=== PATIENT | male | born 1940 | race Two or more races ===

== ENCOUNTER 2017-07-25 16:02 | Emergency (ER) | payer OTHER ==
[~2017-07-25] VITALS: Wt 79.2 kg
[~2017-07-25 16:02] MED LIST: [UNRECOGNIZED DRUG - CODE] PO; [UNRECOGNIZED DRUG - CODE] PO
--- NOTE | 2017-07-25 20:55 | ERD ---
ER Documentation Chief Complaint Chief Complaint HTN NOT CONTROLLED , COTO COTO HPI This 76-year-old male presents for hypertension is out of control as well as a headache that is a generalized headache. He began gradually earlier today. Patient is accompanied by his daughter who checks his pressure at home and noticed that he was top number over 200 at home which is not characteristic for him. It has been running high lately. He is on losartan 40 mg tablet as his only blood pressure medication. Also takes glipizide and metformin for his diabetes. He denies any chest pain, shortness of breath, visual symptoms, neurological deficits, focal weakness, shortness of breath. ROS All systems reviewed and are negative except as per history of present illness. Medications Home Meds Active Scripts Zolpidem Tartrate* (Ambien*) 5 Mg Tablet, 5 MG PO HS Y for INSOMNIA, #15 TAB Take this medication in bed. Do not stand up or get up until you have slept. Can cause falls and diziness. Prov:MARGARETTE HIGGINS DO 07/26/17 Amlodipine Besylate* (Amlodipine Besylate*) 10 Mg Tablet, 10 MG PO DAILY, #30 TAB Prov:MARGARETTE HIGGINS DO 07/26/17 Reported Medications Metformin Hcl* (Metformin Hcl*) 500 Mg Tablet, 500 MG PO WITH BREAKFAST DINNE, # 60 TAB 07/25/17 Famotidine* (Famotidine*) 40 Mg Tablet, 40 MG PO DAILY, #30 TAB 07/25/17 Metoclopramide Hcl* (Metoclopramide Hcl*) 5 Mg Tablet, 5 MG PO WITH MEALS Y for NAUSEA AND OR VOMITING, TAB 07/25/17 Glipizide* (Glipizide*) 10 Mg Tablet, 10 MG PO AC BREAKFAST, TAB 07/25/17 Losartan Potassium* (Losartan Potassium*) 50 Mg Tablet, 50 MG PO DAILY, TAB 07/25/17 Discontinued Reported Medications Etidronate Disodium (Didronel) 200 Mg Tab, 200 MG PO BID 10/03/12 Dolasetron Mesylate (Anzemet) 50 Mg Tablet, 50 MG PO DAILY, #2 10/03/12 Allergies Allergies: Coded Allergies: No Known Allergy (Unverified , 07/25/17) PMhx/Soc History of Surgery: Yes (GALLBLADDER) Anesthesia Reaction: No Hx Neurological Disorder: No Hx Respiratory Disorders: No Hx Cardiac Disorders: Yes (HTN) Hx Psychiatric Problems: No Hx Miscellaneous Medical Probl: Yes (DM) Hx Alcohol Use: No Hx Substance Use: No Hx Tobacco Use: No Physical Exam Vitals Vital Signs Date Time Temp Pulse Resp B/P Pulse Ox O2 Delivery O2 Flow Rate FiO2 07/25/17 23:57 68 16 159/86 99 Room Air 07/25/17 20:00 82 16 213/93 99 Room Air 07/25/17 16:05 98.8 89 20 210/96 99 Physical Exam Const: [] Distress, appears uncomfortable Head: Atraumatic Eyes: Normal Conjunctiva EOMI, PERRLA ENT: Normal External Ears, Nose and Mouth. Neck: Full range of motion..~ No JVD or meningismus Resp: Clear to auscultation bilaterally Cardio: Regular rate and rhythm, no murmurs Abd: Soft, non tender, non distended. Normal bowel sounds Skin: No petechiae or rashes Back: No midline or flank tenderness Ext: No cyanosis, or edema Neur: Awake and alert oriented 3, cranial nerves II through XII intact, no cerebellar deficits finger-nose testing. Psych: Normal Mood and Affect Result Diagram: 07/25/17212907/25/172129 Results 24 hrs Laboratory Tests Test 07/25/17 21:30 White Blood Count 8.110^3/ul Red Blood Count 5.2310^6/ul Hemoglobin 13.6g/dl Hematocrit 40.9% Mean Corpuscular Volume 78.2fl Mean Corpuscular Hemoglobin 26.0pg Mean Corpuscular Hemoglobin Concent 33.3g/dl Red Cell Distribution Width 13.7% Platelet Count 00140^3/UL Mean Platelet Volume 11.4fl Neutrophils % 62.0% Lymphocytes % 26.8% Monocytes % 9.0% Eosinophils % 1.4% Basophils % 0.4% Nucleated Red Blood Cells % 0.0/100WBC Neutrophils # 5.110^3/ul Lymphocytes # 2.210^3/ul Monocytes # 0.710^3/ul Eosinophils # 0.110^3/ul Basophils # 0.010^3/ul Nucleated Red Blood Cells # 0.010^3/ul Sodium Level 137mmol/L Potassium Level 3.7mmol/L Chloride Level 101mmol/L Carbon Dioxide Level 23mmol/L Anion Gap 17 Blood Urea Nitrogen 14mg/dl Creatinine 1.11mg/dl Glucose Level 261mg/dl Calcium Level 9.4mg/dl Troponin I 0.016ng/ml B-Type Natriuretic Peptide 71PG/ML Current Medications Medications (Trade) Dose Ordered Sig/Julianna Route PRN Reason Start Time Stop Time Status Last Admin Dose Admin Labetalol HCl (Labetalol) 20 mg ONCE ONCE IV 07/25/17 21:00 07/25/17 21:01 DC 07/25/17 21:35 Amlodipine Besylate (Norvasc) 10 mg ONCE ONCE PO 07/26/17 00:00 07/26/17 00:01 DC Procedures/MDM Hypertensive crisis and diabetic hyperglycemia. No signs of infection. As the daughter reports increasing systolic blood pressure in the 160s-180s over time this is possibly a worsening of essential hypertension. Patient was given labetalol 20 mg IV. His blood pressure decreased 25% after which the patient had no headache no symptoms whatsoever. I have low suspicion for subarachnoid hemorrhage. Patient is taking his diabetes medication normally does have hyperglycemia. I recommended admission however the patient does not want to stay in the hospital and states that he is going to go home. Daughter is willing to take and care for him there as well as call the primary care doctor first thing in the morning for an appointment. I have also asked her to keep a record of his blood pressures 4 times a day in order to track therapy. I am giving him an amlodipine pill prior to discharge to prevent rebound hypertension discharging with amlodipine. EKG interpretation: Normal sinus rhythm rate of 72, bifascicular block, left axis deviation, no ST-T wave changes concerning for acute ischemia. Abnormal EKG colorist interpretation: Normal sinus rhythm without arrhythmia Chest x-ray interpretation: I see no acute process. I see no pulmonary edema, no pneumothorax, no infiltrates, no fractures. Care time greater than 35 minutes: This includes treatment of hypertensive crisis, action of unstable vital signs, use of IV vasoactive medication labetalol, subsequent multiple visits patient's bedside to reassess his cardio dynamic status, discussion with patient's family at length as well as patient and review of chart. This does not include any billable procedures Departure Diagnosis: Primary Impression: Hypertensive crisis Additional Impressions: Acute headache Hyperglycemia Condition: MARGARETTE Castorena DO Jul 25, 2017 20:55
[2017-07-25] MEDS ORDERED: LABETALOL HCL 20MG INJ IV ONE (21:00)
--- NOTE | 2017-07-25 21:27 | RADRPT ---
PROCEDURE: XR Chest. CLINICAL INDICATION: Chest pain. TECHNIQUE: Single frontal portable chest was obtained. COMPARISON: None. FINDINGS: Cardiomediastinal silhouette appears normal There are atherosclerotic calcifications in the thoracic aorta. Pulmonary vasculature appears normal. Lung gale appear clear. There is elevation of the right hemidiaphragm. Costophrenic angles are well defined The osseous elements appear intact. IMPRESSION: 1. Atherosclerotic calcifications in the thoracic aorta. 2. No evidence for active cardiopulmonary disease. RPTAT: [facility] Physician Day Date Time Electronically viewed and signed by Marc Hogue Physician on 07/25/2017 21:26 /
[2017-07-25] MEDS ORDERED: GLIP-95 PO (21:39)
[2017-07-25] MEDS ORDERED: LOSA50TA6 PO (21:39)
[2017-07-25] MEDS ORDERED: METO5TAB11 PO (21:40)
[2017-07-25] MEDS ORDERED: METF500T4 PO (21:41)
[2017-07-25] MEDS ORDERED: FAMO40TA52 PO (21:41)
[2017-07-25 21:51] LABS: BASOPHILS % 0.4 % (0.0-2.0); EOSINOPHILS # 0.1 10^3/ul (0.0-0.5); EOSINOPHILS % 1.4 % (0.0-7.0); HEMATOCRIT 40.9 % (42.0-52.0); HEMOGLOBIN 13.6 g/dl (14.0-18.0); LYMPHOCYTES # 2.2 10^3/ul (0.8-2.9); LYMPHOCYTES % 26.8 % (15.0-51.0); MEAN CORPUSCULAR HGB CONC 33.3 g/dl (32.0-37.0); MEAN CORPUSCULAR VOLUME 78.2 fl (82.0-101.0); MEAN PLATELET VOLUME 11.4 fl (7.4-10.4); MONOCYTE # 0.7 10^3/ul (0.3-0.9); NEUTROPHIL # 5.1 10^3/ul (1.6-7.5); PLATELET COUNT 270 10^3/UL (140-415); RED BLOOD COUNT 5.23 10^6/ul (4.70-6.10); RED CELL DISTRIBUTION WIDTH 13.7 % (11.5-14.5); WHITE BLOOD COUNT 8.1 10^3/ul (4.8-10.8)
[2017-07-25 22:30] LABS: CALCIUM 9.4 mg/dl (8.4-10.2); CREATININE 1.11 mg/dl (0.61-1.24); POTASSIUM 3.7 mmol/L (3.5-5.1)
[2017-07-25 22:42] LABS: TROPONIN-I 0.016 ng/ml (0.00-0.12)
[2017-07-25 23:57] VITALS: BP 159/86; PULSE 68; RESP 16
[2017-07-26] MEDS ORDERED: AMLO-147 PO
[2017-07-26] MEDS ORDERED: AMLODIPINE 10 MG TAB PO ONE
[2017-07-26] MEDS ORDERED: ZOLP5TAB PO (00:02)
== END 2017-07-26 00:32 | disposition home or self-care (01) ==
LOC: E/R 16:02
DX: I16.9 Hypertensive crisis, unspecified (principal); E11.65 Type 2 diabetes mellitus with hyperglycemia; I10 Essential (primary) hypertension; Z79.84 Long term (current) use of oral hypoglycemic drugs
CPT/HCPCS: 36415; 71010; 80048; 83880; 84484; 85025; 96374; Z7502; Z7610

== ENCOUNTER 2017-12-12 11:12 | Emergency (ER) | END 2017-12-12 14:17 | disposition home or self-care (01) ==

== ENCOUNTER 2018-09-14 17:07 | Inpatient (IN) | payer OTHER ==
[~2018-09-14] VITALS: Ht 167.6 cm; Wt 69.0 kg
[~2018-09-14 17:07] MED LIST changes: +AMLO-147 PO; +BISA-57 PO; +FAMO40TA5 PO; +GLIP10TA14 PO; +LOSA50TA14 PO; +METF500T24 PO; +METO5TAB2 PO; +POLY17PO6 PO; +TAMS-14 PO; +ZOLP5TAB PO; -[UNRECOGNIZED DRUG - CODE] PO; -[UNRECOGNIZED DRUG - CODE] PO
[2018-09-14] MEDS ORDERED: ONDANSETRON 4 MG INJ IV STA ×2 (20:06→22:40)
[2018-09-14] MEDS ORDERED: SOD CHLORIDE 0.9% 1,000 ML IV STA ×2 (20:06→22:40)
[2018-09-14] MEDS ORDERED: morphine 4 MG/ML VIAL IV STA (20:06)
--- NOTE | 2018-09-14 21:01 | ERD ---
ER Documentation Chief Complaint Chief Complaint and pain x 4 days with body weakness x today, denies N/V/D HPI This is a 78-year-old male with a past medical history of [id number] diabetes mellitus and hypertension. The patient presents to the emergency department complaining of epigastric pain. He states the pain is been persistent for 4 days. The pain will have episodes where it becomes more intense 10 out of 10 in intensity. He states the pain does not radiate to his back. He is felt associated symptoms of nausea but denies any vomiting or diarrhea. The patient has had no recent travel or prolonged immobilization. He denies any shortness of breath or chest pain or pressure. He states the epigastric pain is a burning-like sensation. He has had similar episodes of this pain over the past year and was instructed to undergo an upper endoscopy but stated he did not have this done as he was concerned about any invasive procedures. He denies any hemoptysis hematemesis or melanotic stools ROS All systems reviewed and are negative except as per history of present illness. Medications Home Meds Active Scripts Polyethylene Glycol* (Miralax*) 17 Gm Powd.pack, 17 GM PO DAILY, #7 Prov:DAVID ROLLE MD 12/12/17 Bisacodyl* (Dulcolax*) 5 Mg Tablet.dr, 10 MG PO DAILY PRN for CONSTIPATION, #10 TAB Prov:DAVID ROLLE MD 12/12/17 Tamsulosin Hcl* (Flomax*) 0.4 Mg Cap.er.24h, 0.4 MG PO QPM, #15 CAP Prov:DAVID ROLLE MD 12/12/17 Zolpidem Tartrate* (Ambien*) 5 Mg Tablet, 5 MG PO HS PRN for INSOMNIA, #15 TAB Take this medication in bed. Do not stand up or get up until you have slept. Can cause falls and diziness. Prov:MARGARETTE HIGGINS DO 07/26/17 Amlodipine Besylate* (Amlodipine Besylate*) 10 Mg Tablet, 10 MG PO DAILY, #30 TAB Prov:MARGARETTE HIGGINS DO 07/26/17 Reported Medications Metformin Hcl* (Metformin Hcl*) 500 Mg Tablet, 500 MG PO WITH BREAKFAST DINNE, #60 TAB 07/25/17 Famotidine* (Famotidine*) 40 Mg Tablet, 40 MG PO DAILY, #30 TAB 07/25/17 Metoclopramide Hcl* (Metoclopramide Hcl*) 5 Mg Tablet, 5 MG PO WITH MEALS PRN for NAUSEA AND OR VOMITING, TAB 07/25/17 Glipizide* (Glipizide*) 10 Mg Tablet, 10 MG PO AC BREAKFAST, TAB 07/25/17 Losartan Potassium* (Losartan Potassium*) 50 Mg Tablet, 50 MG PO DAILY, TAB 07/25/17 Allergies Allergies: Coded Allergies: No Known Allergy (Unverified , 07/25/17) PMhx/Soc History of Surgery: Yes (GALLBLADDER removal) Anesthesia Reaction: No Hx Neurological Disorder: No Hx Respiratory Disorders: No Hx Cardiac Disorders: Yes (HTN) Hx Psychiatric Problems: No Hx Miscellaneous Medical Probl: Yes (DM, gastritis) Hx Alcohol Use: No Hx Substance Use: No Hx Tobacco Use: No Smoking Status: Never smoker Physical Exam Vitals Vital Signs Date Temp Pulse Resp B/P (MAP) Pulse Ox O2 O2 Flow FiO2 Time Delivery Rate 09/14/18 97.3 71 18 138/63 99 Room Air 19:46 (88) 09/14/18 97.3 125 18 138/63 99 17:08 (88) Physical Exam Constitutional:Well-developed. Well-nourished. HEENT:Normocephalic. Atraumatic.Pupils were equal round reactive to light. Moist mucous membranes.No tonsillar exudates. Neck: No nuchal rigidity. No lymphadenopathy. No posterior cervical spine tenderness or step-offs. Respiratory: Not using accessory muscles of respiration.Lungs were clear to auscultation bilaterally. No rhonchi. No rales. No wheezing. Cardiovascular: Regular rate regular rhythm.No murmurs. No rubs were appreciated.S1, S2 normal. Distal pulses are palpable 2+ bilaterally. GI: Abdomen was soft. Epigastric tenderness with voluntary guarding and tendern ess in the left lower quadrant. Non Distended. No pulsatile abdominal masses or bruits. No rebound. No guarding. Bowel sounds were present and normal. Old surgical scar from the epigastric region to the right upper quadrant. Muscle skeletal: Full range of motion of both the upper and lower extremities bilaterally.Normal muscle tone.No assymetrical calf tenderness or swelling. Skin: No petechia, no purpura. No lesions on the palms or the soles of the feet. No maculopapular rash. NEURO: Patient was alert, awake, orientated x3.No facial droop. Gait observed and normal with no ataxia.Speech had regular rate and rhythm. No focal neurological deficits. Result Diagram: 09/14/18200909/14/182009 Results 24 hrs Laboratory Tests Test 09/14/18 20:10 09/14/18 22:48 09/14/18 22:52 White Blood Count 12.0 10^3/ul Red Blood Count 5.06 10^6/ul Hemoglobin 11.0 g/dl Hematocrit 36.2 % Mean Corpuscular Volume 71.5 fl Mean Corpuscular Hemoglobin 21.7 pg Mean Corpuscular 30.4 g/dl Hemoglobin Concent Red Cell Distribution Width 19.3 % Platelet Count 311 10^3/UL Mean Platelet Volume 9.7 fl Immature Granulocytes % 1.000 % Neutrophils % 80.2 % Lymphocytes % 7.6 % Monocytes % 10.2 % Eosinophils % 0.7 % Basophils % 0.3 % Nucleated Red Blood Cells % 0.0 /100WBC Immature Granulocytes # 0.120 10^3/ul Neutrophils # 9.6 10^3/ul Lymphocytes # 0.9 10^3/ul Monocytes # 1.2 10^3/ul Eosinophils # 0.1 10^3/ul Basophils # 0.0 10^3/ul Nucleated Red Blood Cells # 0.0 10^3/ul Prothrombin Time 14.5 Sec Prothrombin Time Ratio 1.1 INR International 1.12 Normalized Ratio Activated Partial Thromboplast 27.3 Sec Time Sodium Level 137 mmol/L Potassium Level 4.8 mmol/L Chloride Level 100 mmol/L Carbon Dioxide Level 20 mmol/L Anion Gap 17 Blood Urea Nitrogen 17 mg/dl Creatinine 1.27 mg/dl Est Glomerular Filtrat mL/min Rate mL/min Glucose Level 256 mg/dl Calcium Level 9.9 mg/dl Total Bilirubin 0.4 mg/dl Direct Bilirubin 0.00 mg/dl Indirect Bilirubin 0.4 mg/dl Aspartate Amino Transf (AST/SGOT) 184 IU/L Alanine 202 IU/L Aminotransferase (ALT/SGPT) Alkaline Phosphatase 706 IU/L Troponin I 0.027 ng/ml Total Protein 9.1 g/dl Albumin 4.3 g/dl Globulin 4.80 g/dl Albumin/Globulin Ratio 0.89 Amylase Level 623 U/L Lipase 8434 U/L Urine Color STRAW Urine Clarity CLEAR Urine pH 7.0 Urine Specific Celeste 1.036 Urine Ketones NEGATIVE mg/dL Urine Nitrite NEGATIVE mg/dL Urine Bilirubin NEGATIVE mg/dL Urine Urobilinogen NEGATIVE mg/dL Urine Leukocyte Esterase NEGATIVE Unique/ul Urine Microscopic RBC 2 /HPF Urine Microscopic WBC 0 /HPF Urine Hemoglobin 1+ mg/dL Urine Glucose 3+ mg/dL Urine Total Protein NEGATIVE mg/dl Triglycerides Level 166 mg/dl Hepatitis B Surface Antigen NEGATIVE Hepatitis B Core Total Antibody NEGATIVE Hepatitis C Antibody NEGATIVE Current Medications Medications Dose Sig/Julianna Start Time Status Last (Trade) Ordered Route PRN Stop Time Admin Dose Reason Admin Sodium 1,000 ml @ Q1H STAT 09/14/18 DC 09/14/18 Chloride 1,000 mls/hr IV 20:06 09/14/18 20:25 21:05 Morphine 4 mg ONCE STAT 09/14/18 DC 09/14/18 Sulfate IV 20:06 09/14/18 20:25 (morphine) 20:07 Ondansetron 4 mg ONCE STAT 09/14/18 DC 09/14/18 HCl (Zofran IV 20:06 09/14/18 20:25 Inj) 20:07 IV Flush 10 ml STK-MED 09/14/18 DC 09/14/18 (NS 10 ml) ONCE .ROUTE 21:38 09/14/18 21:51 21:39 Sodium 100 ml @ ud STK-MED 09/14/18 DC 09/14/18 Chloride ONCE .ROUTE 21:38 09/14/18 21:51 21:39 Iodixanol 100 ml STK-MED 09/14/18 DC 09/14/18 (Visipaque ONCE .ROUTE 21:38 09/14/18 21:52 Locm) 21:39 Sodium 1,000 ml @ Q1H STAT 09/14/18 DC 09/14/18 Chloride 1,000 mls/hr IV 22:40 09/14/18 22:57 23:39 1 mg ONCE STAT 09/14/18 DC 09/14/18 Hydromorphone IV 22:40 09/14/18 22:57 HCl 22:44 (Dilaudid) Ondansetron 4 mg ONCE STAT 09/14/18 DC 09/14/18 HCl (Zofran IV 22:40 09/14/18 22:57 Inj) 22:44 Sodium 1,000 ml @ Q8H IV 09/15/18 Chloride 125 mls/hr 00:02 IV Flush 3 ml PER 09/15/18 (NS 3 ml) PROTOCOL IV 00:30 Lorazepam 0.5 mg Q8H PRN 09/15/18 (Ativan) PO .ANXIETY 00:30 Ondansetron 4 mg Q6H PRN 09/15/18 HCl (Zofran IV 00:30 Inj) NAUSEA/VOMITI NG 650 mg Q6H PRN 09/15/18 Acetaminophen PO .PAIN 1-3 00:30 (Tylenol OR TEMP Tab) 0.5 mg Q4H PRN 09/15/18 Hydromorphone IV .PAIN 00:30 HCl 7-10 (Dilaudid) Docusate 100 mg Q12H PRN 09/15/18 Sodium PO 00:30 (Colace) .CONSTIPATION Bisacodyl 5 mg DAILY PRN 09/15/18 (Dulcolax) PO 00:30 .CONSTIPATION DC ONCE ONCE 09/15/18 Miscellaneous previous XX 00:30 hepa... 09/15/18 00:31 Information (* Miscellaneous Pharmacy Order) Heparin 5,500 unit ONCE ONCE 09/15/18 Sodium IV 00:30 (Porcine) 09/15/18 00:31 (Heparin (1000 Units/ml)) Heparin 5,500 unit PER PROTOCOL 09/15/18 Sodium PRN IV 00:30 (Porcine) aPTT<47 (Heparin (1000 Units/ml)) Heparin 2,800 unit PER PROTOCOL 09/15/18 Sodium PRN IV 00:30 (Porcine) aPTT<47-57 (Heparin (1000 Units/ml)) Heparin 250 ml @ PER 09/15/18 Sodium 12.5 mls/hr PROTOCOL IV 00:15 (Porcine) Enoxaparin 70 mg ONCE SC 09/15/18 DC Sodium 00:30 (Lovenox) 09/15/18 00:30 Procedures/MDM The patient presented to the emergency department with epigastric pain. My differential diagnosis included but was not limited to abdominal aortic aneurysm, choledocholithiasis, gallstone ileus, renal colic, pyelonephritis, pancreatitis, peptic ulcer disease, atypical myocardical infarction, mesenteric ischemia, GERD, pulmonary infarction. The patient was placed on a surveillance system monitor, continuous pulse oximetry and IV access was established by nursing staff. The patient was given intravenous morphine and Zofran for analgesic control An EKG was obtained to rule out myocardial ischemia. 12 Lead EKG tracing ordered and reviewed by myself showed: Sinus tachycardia 106 bpm and no arrhythmia. NE interval normal. QRS duration widened at 138 ms with a right bundle branch block No ST segment elevation No ST segment depression. No changes consistent with acute ischemia. There was elevation of LFTs that could suggest ductal obstruction, cholangitis, cholecystiitis or hepatitis. I will obtain a urinalysis to evaluate for the presence of bilirubinuria, which could indicate common duct obstruction or hepatitis. The patient's amylase and lipase were elevated and his clinical presentation was suggestive of acute pancreatitis. I obtained a CT scan of the abdomen which showed no pancreatic pseudocyst or abscess however the radiologist indicated the following findings: 1. Findings suspicious for pulmonary embolism in the right lower lobe. Recommend follow-up contrast-enhanced chest CT (PE protocol) for confirmation. 2. Hypoenhancing pancreatic head mass, consistent with pancreatic adenocarcinoma. 3. Innumerable hepatic metastases. 4. Minimal fluid-filled dilation of proximal jejunal loops, compatible with mild jejunal ileus. 5. Mildly enlarged right hilar lymph node, indeterminate. 6. Cholelithiasis without CT evidence of acute cholecystitis. 7. Small hiatal hernia with fluid in visualized distal esophagus. The patient received multiple doses of analgesic medication. I will obtain triglycerides as the patient has no history of alcohol abuse. The patient stated he has had a previous cholecystectomy roughly 20 years prior to arrival; however I am assuming that patient was not sure of the surgical procedure he had over 20 years ago because his gallbladder was present on the CT of the abdomen. Dr. Curtis ordered a US of the liver who was concerning for liver mets. The CT of the abdomen also showed a possible Pulmonary embolism. Dr. Curtis started the patient on a heparin drip. The patient already had mild acute kidney injury and in order to prevent further renal failure he will receive IV fluids with a CT of his Chest to be ordered later in his hospital stay. I spoke with the patient and his daughter about the findings and stated that the patient will be admitted in serious condition to the hospitalist Dr. Curtis will go to the telemetry service. Critical Care: Time: 75 minutes Treatments/Evaluations: Close monitoring and treatment of unstable vital signs, cardiorespiratory, and neurologic status, while maintaining tight balance of fluid, respiratory, and cardiac interventions. Time does not include performing any of the above billable procedures. Departure Diagnosis: Primary Impression: Transaminitis Additional Impressions: Hyperglycemia without ketosis Pancreatic adenocarcinoma Liver metastases Pulmonary embolism Pulmonary embolism type: unspecified Chronicity: acute Acute cor pulmonale presence: without acute cor pulmonale Qualified Codes: I26.99 - Other pulmonary embolism without acute cor pulmonale Condition: Serious TRANG SERVIN MD Sep 14, 2018 21:01
[2018-09-14] MEDS ORDERED: SOD CHLORIDE 0.9% 100 ML ONE (21:38)
[2018-09-14] MEDS ORDERED: IODIXANOL LOCM 100 ML BTL ONE (21:38)
--- NOTE | 2018-09-14 22:13 | HP ---
Date/Time of Note Date/Time of Note DATE: 09/14/18 TIME: 22:13 Assessment/Plan VTE Prophylaxis Pharmacological prophylaxis: heparin Lines/Catheters IV C[facility]ter Type (from [facility]): Saline Lock Assessment/Plan Hospital Course This is a 78-year-old male being admitted to the telemetry floor for: #1 abdominal pain: Secondary to suspected new pancreatic adenocarcinoma with metastases and/or acute pancreatitis. Elevated lipase of approximately 8000.. His CT and ultrasound results are reflective of likely pancreatic adenocarcinoma with metastases to the liver. At the current time will keep the patient n.p.o., IV fluid hydration with normal saline. Dilaudid for pain management. Zofran for nausea. Will consult GI as well as hematology. Will check tumor markers including CA-19-9 and CEA. Of note patient also has elevated alk phos and transaminitis. Will check hepatitis panel. #2 suspected pulmonary embolism: CT scan was concerning for pulmonary embolism. As patient just received contrast study we will obtain a CTA of the chest in the a.m. to workup for PE. I will though start him on heparin GTT at the current time for suspected pulmonary embolism. #4 suspected new pancreatic adenocarcinoma: Consult hematology, await tumor marker results, possible biopsy when patient stable #5 microcytic anemia: We will check stool occult blood, check iron stores, possibly secondary to suspected malignancy. Monitor closely as patient is currently on heparin. #6 Diabetes mellitus: We will check hemoglobin A1c, insulin sliding scale #5 hypertension: #7 acute kidney injury: I do not have a previous baseline creatinine, likely secondary to hemodynamics, prerenal etiology, FABIO inhibitor use. At the current time will hydrate the patient. Will hold FABIO inhibitor, monitor renal function. #8 hypertension: Resume Norvasc, will hold FABIO inhibitor at the current time. #9 DVT GI prophylaxis: H2 justina, no GI prophylaxis indicated heparin GTT, H2 justina Further treatment strategy will be implemented as per the clinical course Result Diagram: 09/14/18200909/14/182009 Results 24hrs Laboratory Tests Test 09/14/18 20:10 White Blood Count 12.0 H Red Blood Count 5.06 Hemoglobin 11.0 L Hematocrit 36.2 L Mean Corpuscular Volume 71.5 L Mean Corpuscular Hemoglobin 21.7 L Mean Corpuscular Hemoglobin Concent 30.4 L Red Cell Distribution Width 19.3 #H Platelet Count 311 Mean Platelet Volume 9.7 Immature Granulocytes % 1.000 H Neutrophils % 80.2 H Lymphocytes % 7.6 L Monocytes % 10.2 Eosinophils % 0.7 Basophils % 0.3 Nucleated Red Blood Cells % 0.0 Immature Granulocytes # 0.120 H Neutrophils # 9.6 H Lymphocytes # 0.9 Monocytes # 1.2 H Eosinophils # 0.1 Basophils # 0.0 Nucleated Red Blood Cells # 0.0 Prothrombin Time 14.5 Prothrombin Time Ratio 1.1 INR International Normalized Ratio 1.12 Activated Partial Thromboplast Time 27.3 Sodium Level 137 Potassium Level 4.8 Chloride Level 100 Carbon Dioxide Level 20 L Anion Gap 17 H Blood Urea Nitrogen 17 Creatinine 1.27 H Est Glomerular Filtrat Rate mL/min Glucose Level 256 H Calcium Level 9.9 Total Bilirubin 0.4 Direct Bilirubin 0.00 Indirect Bilirubin 0.4 Aspartate Amino Transf (AST/SGOT) 184 H Alanine Aminotransferase (ALT/SGPT) 202 H Alkaline Phosphatase 706 H Troponin I 0.027 Total Protein 9.1 H Albumin 4.3 Globulin 4.80 H Albumin/Globulin Ratio 0.89 Amylase Level 623 H Lipase 8434 H HPI/ROS Admit Date/Time Admit Date/Time Hx of Present Illness Chief complaint: Abdominal pain times 1 month with a being worse of the last 4 days. This is a 78-year-old male with a past medical history of pku-qyohdmg-fxhtdjhts diabetes mellitus and hypertension. Patient presents with his son. He presented to the emergency department complaining of abdominal pain mainly epigastric which has been going on for approximately 1 month with it being worse over the last 4 days. The pain will have episodes where it becomes more intense 10 out of 10 in intensity. He states the pain does not radiate to his back. He is felt associated symptoms of nausea but denies any vomiting or diarrhea. The patient has had no recent travel or prolonged immobilization. He denies any shortness of breath or chest pain or pressure. He states the epigastric pain is a burning-like sensation. He has had similar episodes of this pain over the past year and was instructed to undergo an upper endoscopy but stated he did not have this done as he was concerned about any invasive procedures. He denies any hemoptysis hematemesis or melanotic stools. He does not drink alcohol or smoke. He denies any weight loss Allergies: NKDA Medications: See MAR ROS Const: As per HPI Eyes : No pain discharge or redness or change in visual acuity ENT: No pain, sore throat, congestion, congestion, dysphagia or discharge Respiratory: No shortness of breath, cough, sputum, wheezing, or pleuritic pain Cardiovascular: No chest pain, palpitation, PND, or edema GI : As per HPI l Genitourinary: No dysuria, hematuria, flank pain , discharge or CVA tenderness Musculoskeletal: No joint pain, back pain, neck pain, restricted range of motion in neck or joints Skin: No rash, bruising or hives Neuro: No headache, dizziness, syncope, seizure, focal weakness Endocrine: No polyuria, polydipsia, temperature intolerance Psych: No hallucination, depression, anxiety or suicidal ideation PMH/Family/Social Past Medical History Bly-xdxpjsv-hckpheleo diabetes mellitus, hypertension Coded Allergies: No Known Allergy (Unverified , 07/25/17) Past Surgical History Gallstone removal greater than 20 years ago in [facility] Family History Significant Family History: no pertinent family hx Social History Alcohol Use: none Smoking Status: Never smoker Drug Use: none Exam/Review of Systems Vital Signs Vitals Vital Signs Date Temp Pulse Resp B/P (MAP) Pulse Ox O2 O2 Flow FiO2 Time Delivery Rate 09/14/18 97.3 71 18 138/63 99 Room Air 19:46 (88) Exam Exam General: Patient is currently lying in bed in no acute distress. HEENT: Atraumatic, normocephalic. The pupils are equal, round and reactive. Extraocular motor are intact Neck: Supple with full range of motion. No rigidity or meningismus Chest: Nontender Lungs: Clear to auscultation bilaterally no crackles rales or wheezing Heart: Normal S1-S2, Regular rhythm and rate. No murmur, S3, or S4 Abdomen: Soft , mild tenderness of the epigastric area, mild distention noted which she reports is normal, normal bowel sounds. No CVA tenderness bilaterally Extremities: Normal to inspection, no edema no cyanosis Neurologic: Normal mental status, speech normal, cranial nerves II through XII are intact, motor and sensory are intact, no focal weakness Additional Comments PROCEDURE: DX Chest 1 View CLINICAL INDICATION: Abdominal pain. ED patient. TECHNIQUE: AP Portable chest. COMPARISON: None FINDINGS: Normal cardiac and mediastinal configuration. Aortic calcified plaque not visualized. No CHF or hilar enlargement. Lungs are clear. Elevated right hemidiaphragm. No free air. IMPRESSION: No acute disease. RPTAT: HLRS Physician Isidra Date Time Electronically viewed and signed by Physician Isidra on 09/14/2018 20:29 RS/ CC: TRANG SERVIN MD [id number] PROCEDURE: CT Abdomen and Pelvis with contrast CLINICAL INDICATION: Abdominal pain TECHNIQUE: Transaxial computed tomographic images of the abdomen and pelvis were obtained following the uneventful administration of 90 mL Visipaque 320 intravenous contrast according to standard protocol. Coronal and sagittal reformatted images were provided. DICOM images are available. Radiation dose: CTDIvol (mGy) = 8.61; total DLP (mGy.cm) = 579.38. One or more of the following dose reduction techniques were used: - Automated exposure control. - Adjustment of the mA and/or kV according to patient size. - Use of iterative reconstruction technique. COMPARISON: None. FINDINGS: The visualized lung bases demonstrate moderate bibasilar atelectasis. There is no pleural effusion. A right hilar lymph node measuring 1.1 cm in short axis is partially seen. Intraluminal filling defects are suggested in segmental and subsegmental branches of the right lower lobe pulmonary artery. There are innumerable hypo enhancing right and left hepatic lobe lesions measuring up to 3 cm. There is no biliary ductal dilatation. Gallbladder is partially contracted and contains a small gallstone. There is no gallbladder wall thickening or pericholecystic fluid collection. There is a 3.9 x 3.6 cm partially exophytic hypoenhancing pancreatic head mass. Pancreatic body and tail is mildly atrophic with prominent main pancreatic duct. The mass encases distal superior mesenteric vein and portosplenic confluence. Co mmon hepatic artery and superior mesenteric artery are spared. Several subcentimeter peripancreatic, periportal and portacaval lymph nodes are nonspecific. There is a 3.1 cm exophytic right upper pole renal cyst. Subcentimeter hypoattenuating bilateral renal lesions are too small to characterize but statistically likely cyst. There is no hydronephrosis on either side. Spleen and adrenal glands are normal. There is a small hiatal hernia with a fluid in visualized distal esophagus. There is no evidence of intestinal obstruction. There is minimal fluid fluid- filled dilation of proximal jejunal loops. Remaining small bowel and colonic loops are not dilated. The appendix is normal. There is no abdominal aortic aneurysm. There is no free intraperitoneal air or fluid. Urinary bladder is normal. Prostate is moderately enlarged measuring 5.6 cm in transverse diameter. There is no suspicious mesenteric or retroperitoneal lymphadenopathy. Small fat-containing left inguinal hernia. Bone window demonstrates mild degenerative changes of thoracolumbar spine. IMPRESSION: 1. Findings suspicious for pulmonary embolism in the right lower lobe. Recommend follow-up contrast-enhanced chest CT (PE protocol) for confirmation. 2. Hypoenhancing pancreatic head mass, consistent with pancreatic adenocarcinoma. 3. Innumerable hepatic metastases. 4. Minimal fluid-filled dilation of proximal jejunal loops, compatible with mild jejunal ileus. 5. Mildly enlarged right hilar lymph node, indeterminate. 6. Cholelithiasis without CT evidence of acute cholecystitis. 7. Small hiatal hernia with fluid in visualized distal esophagus. 8. Other incidental findings, as above. Critical findings were discussed with Dr. Patel by Dr. Chacon at 11:35 p.m. on 09/14/2018. RPTAT:HAJM Physician Kandi Date Time Electronically viewed and signed by Physician Kandi on 09/14/2018 23:45 RM/ CC: TRANG SERVIN MD [id number] PROCEDURE: US abdomen limited CLINICAL INDICATION: Pancreatitis, abnormal liver function test. TECHNIQUE: Multiple real-time sonographic images of the right upper quadrant of the abdomen was performed. COMPARISON: None. FINDINGS: Liver parenchyma is diffusely heterogeneous. Liver measures 17.3 cm in length. There are innumerable hypoechoic liver lesions measuring up to 2.4 cm. There is no intrahepatic biliary ductal dilatation. Common bile duct measures 3 mm in diameter, within normal limits. Limited Doppler interrogation of main portal vein demonstrates antegrade flow. There is no gallstone, gallbladder wall thickening or pericholecystic fluid. No ascites is seen. Pancreas is obscured by the overlying bowel gas. Images of the right kidney demonstrate no hydronephrosis. Right kidney measures 10.2 x 5.4 x 4.6 cm. There is a 3 cm exophytic right renal cyst. IMPRESSION: 1. Innumerable hypoechoic liver lesions, compatible with metastatic disease. 2. No evidence of cholelithiasis or biliary ductal dilatation. 3. Right renal cyst. RPTAT:HAJM Physician Kandi Date Time Electronically viewed and signed by Physician Kandi on 09/14/2018 23:25 RM/ CC: LIZETTE YUAN [id number] LIZETTE YUAN Sep 14, 2018 22:13
[2018-09-14] MEDS ORDERED: HYDROmorphONE 1 MG/ML SYG IV STA (22:40)
[2018-09-15] VITALS (11 sets, daily range): BP systolic 117–147; BP diastolic 59–70; PULSE 84–119; RESP 18–20; Ht 167.6 cm; Wt 69.0 kg
[2018-09-15] MEDS: SOD CHLORIDE 0.9% 1,000 ML IV SCH ×2 (00:02→09:28)
[2018-09-15] MEDS ORDERED: ENOXAPARIN 80 MG/0.8 ML SYG SC SCH (00:30)
[2018-09-15] MEDS ORDERED: HEPARIN 1000 UNITS/ML 10 ML INJ IV ONE (00:30)
[2018-09-15] MEDS ORDERED: NACL 0.9% 3 ML SYG IV SCH (00:30)
[2018-09-15] MEDS ORDERED: DOCUSATE SODIUM 100 MG CAP PO PRN (00:30)
[2018-09-15] MEDS ORDERED: ACETAMINOPHEN 325 MG TAB PO PRN (00:30)
[2018-09-15] MEDS ORDERED: HEPARIN 1000 UNITS/ML 10 ML INJ IV PRN ×2 (00:30)
[2018-09-15] MEDS ORDERED: ONDANSETRON 4 MG INJ IV PRN (00:30)
[2018-09-15] MEDS: HYDROmorphONE 0.5 MG/0.5 ML SYG IV PRN ×3 (00:49→17:06)
[2018-09-15] MEDS: HEPARIN 25000 UNITS/250 ML 250 ML IV SCH ×2 (02:04→10:37)
[2018-09-15] MEDS ORDERED: IOHEXOL 100 ML ONE (08:22)
[2018-09-15] MEDS ORDERED: SOD CHLORIDE 0.9% 100 ML ONE (08:22)
[2018-09-15] MEDS: AMLODIPINE 10 MG TAB PO SCH (09:27)
[2018-09-15] MEDS: FAMOTIDINE 20 MG TAB PO SCH (09:27)
--- NOTE | 2018-09-15 11:09 | CONS ---
Assessment/Plan Assessment/Plan Hospital Course (Demo Recall) Assessment/Plan (Daily) Assessment/Plan Epigastric abdominal pain - secondary to pancreatitis, possibly due to gallstone pancreatitis vs pancreatic cancer - check A/I panel - MRCP to evaluate for any occult biliary obstruction and to better delineate liver masses - NPO with IV hydration - Continue GI ppx with H2 justina Metastatic pancreatic cancer with liver metastasis - Will order US guided liver biopsy for tissue diagnosis - follow up results of tumor markers, CEA, CA 19-9 - Await input from medical oncology Pulmonary embolism evidence as evidence on CT - CTA per hospitalist team - anticoagulation HTN - stable on current medications, continue to monitor Anemia - stable, monitor H and H, transfuse as needed to keep Hgb <7 The plan was discussed with the patient and family at bedside who expressed understanding and is willing to proceed. The patient was seen in collaboration with Dr. Pratt who is in agreement with the above plan. CC: COLETTE PRATT MD ; Consultation Date/Type/Reason Admit Date/Time Date of Consultation: Sep 15, 2018 Type of Consult Gastroenterology Reason for Consultation pancreatitis, liver failure Requesting Provider: LIZETTE YUAN Date/Time of Note DATE: 09/15/18 TIME: 10:10 Hx of Present Illness 78 y/o male with a history of HTN and diabetes admitted with recurrent epigastric pain which he states has been worsening over the past week. He reports associated constipation, denies any associated nausea, vomiting, rectal bleeding, fevers, chills or weakness. He reports a history of intermittent epigastric pain on an off for the past several years. He was also previously admitted to [facility] and had a workup with a CT scan which was nonrevealing. He was found to have markedly elevated LFT's and pancreatic enzyme s with a lipase of 8000 on admission. He had a CT scan on 09/14/18 which revealed a pancreatic head mass with multiple liver metastases suspicious for metastatic pancreatic cancer. Additionally there was evidence of PE on the CT and he had a follow up CTA today. He is anticoagulated with heparin. The family reports he had an upper endoscopy and colonoscopy about 8 years ago which was normal. He also seems to have had a gallstone removed, questionable cholecystectomy though his gallbladder is clearly visualized on imaging. Constitutional: No no complaints, No improved, No chills, No diaphoresis, No disoriented, No febrile, No poor po, No requiring IVF, No requiring O2, No other Eyes: No no complaints, No pain, No discharge, No redness, No visual change, No other ENT: No no complaints, No bleeding, No pain, No congestion, No discharge, No dysphagia, No sore throat, No other Respiratory: shortness of breath; No no complaints, No pain, No cough, No pleuritic pain, No sputum, No wheezing, No other Cardiovascular: No no complaints, No chest pain, No edema, No lightheadedness, No orthopenea, No palpitations, No paroxysmal nocturnal dyspnea, No other Gastrointestinal: pain, constipation; No no complaints, No blood, No decreased appetite, No diarrhea, No flatus, No nausea, No passing stool, No vomiting, No other Genitourinary: No no complaints, No bleeding, No dysuria, No discharge, No flank pain, No hematuria, No other Musculoskeletal: No no complaints, No back pain, No bone/joint pain, No neck pain, No restricted range of motion, No swelling, No other Skin: No no complaints, No bruising, No erythema, No laceration, No pruritis, No rash, No skin lesions, No other Past Medical History Medical History: diabetes, gallstones, hepatitis, hypertension, pancreatitis Home Meds Active Scripts Polyethylene Glycol* (Miralax*) 17 Gm Powd.pack, 17 GM PO DAILY, #7 Prov:DAVID ROLLE MD 12/12/17 Bisacodyl* (Dulcolax*) 5 Mg Tablet.dr, 10 MG PO DAILY PRN for CONSTIPATION, #10 TAB Prov:DAVID ROLLE MD 12/12/17 Tamsulosin Hcl* (Flomax*) 0.4 Mg Cap.er.24h, 0.4 MG PO QPM, #15 CAP Prov:DAVID ROLLE MD 12/12/17 Zolpidem Tartrate* (Ambien*) 5 Mg Tablet, 5 MG PO HS PRN for INSOMNIA, #15 TAB Take this medication in bed. Do not stand up or get up until you have slept. Can cause falls and diziness. Prov:MARGARETTE HIGGINS DO 07/26/17 Amlodipine Besylate* (Amlodipine Besylate*) 10 Mg Tablet, 10 MG PO DAILY, #30 TAB Prov:MARGARETTE HIGGINS DO 07/26/17 Reported Medications Metformin Hcl* (Metformin Hcl*) 500 Mg Tablet, 500 MG PO WITH BREAKFAST DINNE, #60 TAB 07/25/17 Famotidine* (Famotidine*) 40 Mg Tablet, 40 MG PO DAILY, #30 TAB 07/25/17 Metoclopramide Hcl* (Metoclopramide Hcl*) 5 Mg Tablet, 5 MG PO WITH MEALS PRN for NAUSEA AND OR VOMITING, TAB 07/25/17 Glipizide* (Glipizide*) 10 Mg Tablet, 10 MG PO AC BREAKFAST, TAB 07/25/17 Losartan Potassium* (Losartan Potassium*) 50 Mg Tablet, 50 MG PO DAILY, TAB 07/25/17 Medications Current Medications Sodium Chloride 1,000 ml @ 125 mls/hr Q8H IV Last administered on 09/15/18at 09:28; Admin Dose 125 MLS/HR; Start 09/15/18 at 00:02 IV Flush (NS 3 ml) 3 ml PER PROTOCOL IV ; Start 09/15/18 at 00:30 Lorazepam (Ativan) 0.5 mg Q8H PRN PO .ANXIETY; Start 09/15/18 at 00:30 Ondansetron HCl (Zofran Inj) 4 mg Q6H PRN IV NAUSEA/VOMITING; Start 09/15/18 at 00:30 Acetaminophen (Tylenol Tab) 650 mg Q6H PRN PO .PAIN 1-3 OR TEMP; Start 09/15/18 at 00:30 Hydromorphone HCl (Dilaudid) 0.5 mg Q4H PRN IV .PAIN 7-10 Last administered on 09/15/18at 00:49; Admin Dose 0.5 MG; Start 09/15/18 at 00:30 Docusate Sodium (Colace) 100 mg Q12H PRN PO .CONSTIPATION; Start 09/15/18 at 00:30 Bisacodyl (Dulcolax) 5 mg DAILY PRN PO .CONSTIPATION; Start 09/15/18 at 00:30 Heparin Sodium (Porcine) (Heparin (1000 Units/ml)) 5,500 unit PER PROTOCOL PRN IV aPTT<47 Last administered on 09/15/18at 02:03; Admin Dose 5,500 UNIT; Start 09/15/18 at 00:30 Heparin Sodium (Porcine) (Heparin (1000 Units/ml)) 2,800 unit PER PROTOCOL PRN IV aPTT<47-57; Start 09/15/18 at 00:30 Heparin Sodium (Porcine) 250 ml @ 12.5 mls/hr PER PROTOCOL IV Last administered on 09/15/18at 02:04; Admin Dose 12.5 MLS/HR; Start 09/15/18 at 00:15 Amlodipine Besylate (Norvasc) 10 mg DAILY PO Last administered on 09/15/18at 09:27; Admin Dose 10 MG; Start 09/15/18 at 09:00 Famotidine (Pepcid) 40 mg DAILY PO Last administered on 09/15/18at 09:27; Admin Dose 40 MG; Start 09/15/18 at 09:00 Tamsulosin HCl (Flomax) 0.4 mg QPM PO ; Start 09/15/18 at 21:00 Allergies: Coded Allergies: No Known Allergy (Unverified , 07/25/17) Past Surgical History Past Surgical Hx: no surgical history Family History Significant Family History: no pertinent family hx Social History Alcohol Use: none Smoking Status: Never smoker Drug Use: none Exam/Review of Systems Exam Vitals Vital Signs Date Temp Pulse Resp B/P (MAP) Pulse Ox O2 O2 Flow FiO2 Time Delivery Rate 09/15/18 107 08:08 09/15/18 98.2 19 147/70 95 07:28 (95) 09/15/18 Room Air 00:52 Intake and Output 09/14/18 09/14/18 09/15/18 1515:00 23:00 07:00 IntakeIntake Total 587.5 ml OutputOutput Total 500 ml BalanceBalance 87.5 ml Constitutional: alert, oriented Psych: no complaints; No nl mood/affect, No anxiety, No confusion, No depression, No suicidal, No other Head: normocephalic, atraumatic Eyes: nl conjunctiva; No EOMI, No nl lids, No nl sclera, No PERRL, No icteric, No fundi, disc, No other ENMT: No nl external ears & nose, No nl lips & teeth, No nl nasal mucosa & septum, No mucosa pink and moist, No intubated, No tympanic membranes, No other Gastrointestinal: soft, bowel sounds, tender (moderate upper quadrant abdominal pain to palpation) Genitourinary - Male: No nl penis, No nl scrotum, No CVA tenderness, No discharge, No other Musculoskeletal: No nl extremities to inspection, No nl gait and stance, No joint tenderness, No muscle tone, No muscle weakness, No range of motion, No spine non-tender, No swelling, No other Extremities: No normal pulses, No calf tenderness, No cyanosis, No clubbing, No edema, No pitting pedal edema, No palpable cord, No tenderness, No other Results Result Diagram: 09/15/180 09/14/182009 Results 24hrs Laboratory Tests Test 09/14/18 20:10 09/14/18 22:48 09/14/18 22:52 09/15/18 00:20 White Blood Count 12.0 H 11.9 H Red Blood Count 5.06 4.56 L Hemoglobin 11.0 L 9.9 L Hematocrit 36.2 L 33.1 L Mean Corpuscular 71.5 L 72.6 L Volume Mean Corpuscular 21.7 L 21.7 L Hemoglobin Mean Corpuscular 30.4 L 29.9 L Hemoglobin Concent Red Cell Distribution 19.3 #H 19.3 H Width Platelet Count 311 277 Mean Platelet Volume 9.7 10.0 Immature Granulocytes 1.000 H 1.000 H % Neutrophils % 80.2 H 71.7 Lymphocytes % 7.6 L 14.7 L Monocytes % 10.2 11.0 Eosinophils % 0.7 1.3 Basophils % 0.3 0.3 Nucleated Red Blood 0.0 0.0 Cells % Immature Granulocytes 0.120 H 0.120 H # Neutrophils # 9.6 H 8.5 H Lymphocytes # 0.9 1.8 Monocytes # 1.2 H 1.3 H Eosinophils # 0.1 0.2 Basophils # 0.0 0.0 Nucleated Red Blood 0.0 0.0 Cells # Prothrombin Time 14.5 15.0 H Prothrombin Time Ratio 1.1 1.2 INR International 1.12 1.17 Normalized Ratio Activated 27.3 28.5 Partial Thromboplast Time Sodium Level 137 Potassium Level 4.8 Chloride Level 100 Carbon Dioxide Level 20 L Anion Gap 17 H Blood Urea Nitrogen 17 Creatinine 1.27 H Est Glomerular Filtrat Rate mL/min Glucose Level 256 H Calcium Level 9.9 Total Bilirubin 0.4 Direct Bilirubin 0.00 Indirect Bilirubin 0.4 Aspartate Amino 184 H Transf (AST/SGOT) Alanine 202 H Aminotransferase (ALT/ SGPT) Alkaline Phosphatase 706 H Troponin I 0.027 Total Protein 9.1 H Albumin 4.3 Globulin 4.80 H Albumin/Globulin Ratio 0.89 Amylase Level 623 H Lipase 8434 H Urine Color STRAW Urine Clarity CLEAR Urine pH 7.0 Urine Specific [place] 1.036 H Urine Ketones NEGATIVE Urine Nitrite NEGATIVE Urine Bilirubin NEGATIVE Urine Urobilinogen NEGATIVE Urine Leukocyte NEGATIVE Esterase Urine Microscopic RBC 2 Urine Microscopic WBC 0 Urine Hemoglobin 1+ H Urine Glucose 3+ H Urine Total Protein NEGATIVE Triglycerides Level 166 H Hepatitis B Surface NEGATIVE Antigen Hepatitis B Core NEGATIVE Total Antibody Hepatitis C Antibody NEGATIVE Test 09/15/18 08:42 Activated 110.8 *H Partial Thromboplast Time Imaging Imaging CT 09/14/18 IMPRESSION: 1. Findings suspicious for pulmonary embolism in the right lower lobe. Recommend follow-up contrast-enhanced chest CT (PE protocol) for confirmation. 2. Hypoenhancing pancreatic head mass, consistent with pancreatic adenocarcinoma. 3. Innumerable hepatic metastases. 4. Minimal fluid-filled dilation of proximal jejunal loops, compatible with mild jejunal ileus. 5. Mildly enlarged right hilar lymph node, indeterminate. 6. Cholelithiasis without CT evidence of acute cholecystitis. 7. Small hiatal hernia with fluid in visualized distal esophagus. 8. Other incidental findings, as above. Abdominal US 09/14/18 IMPRESSION: 1. Innumerable hypoechoic liver lesions, compatible with metastatic disease. 2. No evidence of cholelithiasis or biliary ductal dilatation. 3. Right renal cyst. Medications Medication Current Medications Sodium Chloride 1,000 ml @ 125 mls/hr Q8H IV Last administered on 09/15/18at 09:28; Admin Dose 125 MLS/HR; Start 09/15/18 at 00:02 IV Flush (NS 3 ml) 3 ml PER PROTOCOL IV ; Start 09/15/18 at 00:30 Lorazepam (Ativan) 0.5 mg Q8H PRN PO .ANXIETY; Start 09/15/18 at 00:30 Ondansetron HCl (Zofran Inj) 4 mg Q6H PRN IV NAUSEA/VOMITING; Start 09/15/18 at 00:30 Acetaminophen (Tylenol Tab) 650 mg Q6H PRN PO .PAIN 1-3 OR TEMP; Start 09/15/18 at 00:30 Hydromorphone HCl (Dilaudid) 0.5 mg Q4H PRN IV .PAIN 7-10 Last administered on 09/15/18at 00:49; Admin Dose 0.5 MG; Start 09/15/18 at 00:30 Docusate Sodium (Colace) 100 mg Q12H PRN PO .CONSTIPATION; Start 09/15/18 at 00:30 Bisacodyl (Dulcolax) 5 mg DAILY PRN PO .CONSTIPATION; Start 09/15/18 at 00:30 Heparin Sodium (Porcine) (Heparin (1000 Units/ml)) 5,500 unit PER PROTOCOL PRN IV aPTT<47 Last administered on 09/15/18at 02:03; Admin Dose 5,500 UNIT; Start 09/15/18 at 00:30 Heparin Sodium (Porcine) (Heparin (1000 Units/ml)) 2,800 unit PER PROTOCOL PRN IV aPTT<47-57; Start 09/15/18 at 00:30 Heparin Sodium (Porcine) 250 ml @ 12.5 mls/hr PER PROTOCOL IV Last administered on 09/15/18at 02:04; Admin Dose 12.5 MLS/HR; Start 09/15/18 at 00:15 Amlodipine Besylate (Norvasc) 10 mg DAILY PO Last administered on 09/15/18at 09:27; Admin Dose 10 MG; Start 09/15/18 at 09:00 Famotidine (Pepcid) 40 mg DAILY PO Last administered on 09/15/18at 09:27; Admin Dose 40 MG; Start 09/15/18 at 09:00 Tamsulosin HCl (Flomax) 0.4 mg QPM PO ; Start 09/15/18 at 21:00 EDMUNDO SALOMON NP Sep 15, 2018 10:20
--- NOTE | 2018-09-15 13:19 | PN ---
Date/Time of Note Date/Time of Note DATE: 09/15/18 TIME: 13:07 Assessment/Plan VTE Prophylaxis Risk score (from Ns)>0 risk: 6 SCD applied (from Ns): Yes Pharmacological prophylaxis: heparin Lines/Catheters IV Catheter Type (from Nrs): Saline Lock Urinary Cath still in place: No Assessment/Plan Hospital Course 78 yo male with DMII and HTN who presented with abdominal pain and found to have pancreatic mass with multiple liver lesions consistent with likely metastatic pancreatic cancer. Also found to have PE - Will require tissue diagnosis - Dr Aggarwal consulted - Pain control PE: - On heparin drip for now pending procedure - Should be on lovenox indefinetly for malginancy associate VTE thereafter DMII: - Basal/bolus Dc when diagnosis and management plan in place Result Diagram: 09/15/18 0020 09/14/182009 Results 24hrs Laboratory Tests Test 09/14/18 20:10 09/14/18 22:48 09/14/18 22:52 09/15/18 00:20 White Blood Count 12.0 H 11.9 H Red Blood Count 5.06 4.56 L Hemoglobin 11.0 L 9.9 L Hematocrit 36.2 L 33.1 L Mean Corpuscular 71.5 L 72.6 L Volume Mean Corpuscular 21.7 L 21.7 L Hemoglobin Mean Corpuscular 30.4 L 29.9 L Hemoglobin Concent Red Cell Distribution 19.3 #H 19.3 H Width Platelet Count 311 277 Mean Platelet Volume 9.7 10.0 Immature Granulocytes 1.000 H 1.000 H % Neutrophils % 80.2 H 71.7 Lymphocytes % 7.6 L 14.7 L Monocytes % 10.2 11.0 Eosinophils % 0.7 1.3 Basophils % 0.3 0.3 Nucleated Red Blood 0.0 0.0 Cells % Immature Granulocytes 0.120 H 0.120 H # Neutrophils # 9.6 H 8.5 H Lymphocytes # 0.9 1.8 Monocytes # 1.2 H 1.3 H Eosinophils # 0.1 0.2 Basophils # 0.0 0.0 Nucleated Red Blood 0.0 0.0 Cells # Prothrombin Time 14.5 15.0 H Prothrombin Time 1.1 1.2 Ratio INR International 1.12 1.17 Normalized Ratio Activated 27.3 28.5 Partial Thromboplast Time Sodium Level 137 Potassium Level 4.8 Chloride Level 100 Carbon Dioxide Level 20 L Anion Gap 17 H Blood Urea Nitrogen 17 Creatinine 1.27 H Est Glomerular Filtrat Rate mL/min Glucose Level 256 H Calcium Level 9.9 Total Bilirubin 0.4 Direct Bilirubin 0.00 Indirect Bilirubin 0.4 Aspartate Amino 184 H Transf (AST/SGOT) Alanine 202 H Aminotransferase (ALT /SGPT) Alkaline Phosphatase 706 H Troponin I 0.027 Total Protein 9.1 H Albumin 4.3 Globulin 4.80 H Albumin/Globulin 0.89 Ratio Amylase Level 623 H Lipase 8434 H Urine Color STRAW Urine Clarity CLEAR Urine pH 7.0 Urine Specific 1.036 H [place] Urine Ketones NEGATIVE Urine Nitrite NEGATIVE Urine Bilirubin NEGATIVE Urine Urobilinogen NEGATIVE Urine Leukocyte NEGATIVE Esterase Urine Microscopic RBC 2 Urine Microscopic WBC 0 Urine Hemoglobin 1+ H Urine Glucose 3+ H Urine Total Protein NEGATIVE Triglycerides Level 166 H Hepatitis B Surface NEGATIVE Antigen Hepatitis B Core NEGATIVE Total Antibody Hepatitis C Antibody NEGATIVE Test 09/15/18 08:42 09/15/18 08:43 Activated 110.8 *H Partial Thromboplast Time Alpha Fetoprotein 3.43 Carcinoembryonic 11.7 H Antigen CA 19-9 Antigen 51.1 H Subjective 24 Hr Interval Summary Free Text/Dictation I discussed with the patient via languages and literature instructor phone that he likely has metastsatic pancreatic cancer and will require biopsy for diagnosis. His major complaint is of pain in abdomen. Breathing comfortably Exam/Review of Systems Exam Vitals Vital Signs Date Temp Pulse Resp B/P (MAP) Pulse Ox O2 O2 Flow FiO2 Time Delivery Rate 09/15/18 105 12:26 09/15/18 98.2 18 129/60 98 11:21 (83) 09/15/18 Room Air 00:52 Intake and Output 09/14/18 09/14/18 09/15/18 1515:00 23:00 07:00 IntakeIntake Total 587.5 ml OutputOutput Total 500 ml BalanceBalance 87.5 ml Exam Resting calmly but somewhat uncomfortably appearing RRR CTAB Abdomen firm, no guarding or rebound Ext warm without edema Results Results 24hrs Laboratory Tests Test 09/14/18 20:10 09/14/18 22:48 09/14/18 22:52 09/15/18 00:20 White Blood Count 12.0 H 11.9 H Red Blood Count 5.06 4.56 L Hemoglobin 11.0 L 9.9 L Hematocrit 36.2 L 33.1 L Mean Corpuscular 71.5 L 72.6 L Volume Mean Corpuscular 21.7 L 21.7 L Hemoglobin Mean Corpuscular 30.4 L 29.9 L Hemoglobin Concent Red Cell Distribution 19.3 #H 19.3 H Width Platelet Count 311 277 Mean Platelet Volume 9.7 10.0 Immature Granulocytes 1.000 H 1.000 H % Neutrophils % 80.2 H 71.7 Lymphocytes % 7.6 L 14.7 L Monocytes % 10.2 11.0 Eosinophils % 0.7 1.3 Basophils % 0.3 0.3 Nucleated Red Blood 0.0 0.0 Cells % Immature Granulocytes 0.120 H 0.120 H # Neutrophils # 9.6 H 8.5 H Lymphocytes # 0.9 1.8 Monocytes # 1.2 H 1.3 H Eosinophils # 0.1 0.2 Basophils # 0.0 0.0 Nucleated Red Blood 0.0 0.0 Cells # Prothrombin Time 14.5 15.0 H Prothrombin Time 1.1 1.2 Ratio INR International 1.12 1.17 Normalized Ratio Activated 27.3 28.5 Partial Thromboplast Time Sodium Level 137 Potassium Level 4.8 Chloride Level 100 Carbon Dioxide Level 20 L Anion Gap 17 H Blood Urea Nitrogen 17 Creatinine 1.27 H Est Glomerular Filtrat Rate mL/min Glucose Level 256 H Calcium Level 9.9 Total Bilirubin 0.4 Direct Bilirubin 0.00 Indirect Bilirubin 0.4 Aspartate Amino 184 H Transf (AST/SGOT) Alanine 202 H Aminotransferase (ALT /SGPT) Alkaline Phosphatase 706 H Troponin I 0.027 Total Protein 9.1 H Albumin 4.3 Globulin 4.80 H Albumin/Globulin 0.89 Ratio Amylase Level 623 H Lipase 8434 H Urine Color STRAW Urine Clarity CLEAR Urine pH 7.0 Urine Specific 1.036 H [place] Urine Ketones NEGATIVE Urine Nitrite NEGATIVE Urine Bilirubin NEGATIVE Urine Urobilinogen NEGATIVE Urine Leukocyte NEGATIVE Esterase Urine Microscopic RBC 2 Urine Microscopic WBC 0 Urine Hemoglobin 1+ H Urine Glucose 3+ H Urine Total Protein NEGATIVE Triglycerides Level 166 H Hepatitis B Surface NEGATIVE Antigen Hepatitis B Core NEGATIVE Total Antibody Hepatitis C Antibody NEGATIVE Test 09/15/18 08:42 09/15/18 08:43 Activated 110.8 *H Partial Thromboplast Time Alpha Fetoprotein 3.43 Carcinoembryonic 11.7 H Antigen [place] 19-9 Antigen 51.1 H Medications Medication Current Medications IV Flush (NS 3 ml) 3 ml PER PROTOCOL IV ; Start 09/15/18 at 00:30 Lorazepam (Ativan) 0.5 mg Q8H PRN PO .ANXIETY; Start 09/15/18 at 00:30 Ondansetron HCl (Zofran Inj) 4 mg Q6H PRN IV NAUSEA/VOMITING; Start 09/15/18 at 00:30 Acetaminophen (Tylenol Tab) 650 mg Q6H PRN PO .PAIN 1-3 OR TEMP; Start 09/15/18 at 00:30 Hydromorphone HCl (Dilaudid) 0.5 mg Q4H PRN IV .PAIN 7-10 Last administered on 09/15/18at 12:23; Admin Dose 0.5 MG; Start 09/15/18 at 00:30 Docusate Sodium (Colace) 100 mg Q12H PRN PO .CONSTIPATION; Start 09/15/18 at 00:30 Bisacodyl (Dulcolax) 5 mg DAILY PRN PO .CONSTIPATION; Start 09/15/18 at 00:30 Heparin Sodium (Porcine) (Heparin (1000 Units/ml)) 5,500 unit PER PROTOCOL PRN IV aPTT<47 Last administered on 09/15/18at 02:03; Admin Dose 5,500 UNIT; Start at 00:30 Heparin Sodium (Porcine) (Heparin (1000 Units/ml)) 2,800 unit PER PROTOCOL PRN IV aPTT<47-57; Start 09/15/18 at 00:30 Heparin Sodium (Porcine) 250 ml @ 12.5 mls/hr PER PROTOCOL IV Last administered on 09/15/18at 10:37; Admin Dose 11.5 MLS/HR; Start 09/15/18 at 00:15 Amlodipine Besylate (Norvasc) 10 mg DAILY PO Last administered on 09/15/18at 09:27; Admin Dose 10 MG; Start 09/15/18 at 09:00 Famotidine (Pepcid) 40 mg DAILY PO Last administered on 09/15/18at 09:27; Admin Dose 40 MG; Start 09/15/18 at 09:00 Tamsulosin HCl (Flomax) 0.4 mg QPM PO ; Start 09/15/18 at 21:00 NUBIA ROSEN MD Sep 15, 2018 13:19
[2018-09-15] MEDS ORDERED: GLUCAGON 1 MG INJ IM PRN (14:00)
[2018-09-15] MEDS ORDERED: GLUCOSE GEL 15 GRAM TUBE BUCCAL PRN (14:00)
[2018-09-15] MEDS ORDERED: DEXTROSE 50% 50 ML SYRINGE IV PRN ×2 (14:00)
[2018-09-15] MEDS ORDERED: GLUCOSE GEL 15 GRAM TUBE PO PRN ×2 (14:00)
[2018-09-15] MEDS: INSULIN ASPART [NOVOLOG] 3 ML PEN SC SCH ×3 (17:37→20:38)
[2018-09-15] MEDS: INSULIN GLARGINE [LANTus] (100 UNITS/ML) SYG SC SCH (20:37)
[2018-09-15] MEDS: TAMSULOSIN (SR) 0.4 MG CAP PO SCH (20:38)
[2018-09-16] VITALS (18 sets, daily range): BP systolic 105–151; BP diastolic 49–76; PULSE 107–119; RESP 16–25
[2018-09-16] MEDS: HYDROmorphONE 0.5 MG/0.5 ML SYG IV PRN ×3 (00:07→21:05)
[2018-09-16] MEDS: HEPARIN 25000 UNITS/250 ML 250 ML IV SCH ×2 (01:35→22:27)
[2018-09-16] MEDS ORDERED: ACCU-CHEK XX SCH (02:00)
[2018-09-16] MEDS: INSULIN ASPART [NOVOLOG] 3 ML PEN SC SCH ×7 (07:55→21:03)
[2018-09-16] MEDS: AMLODIPINE 10 MG TAB PO SCH (08:29)
[2018-09-16] MEDS: FAMOTIDINE 20 MG TAB PO SCH (08:29)
--- NOTE | 2018-09-16 09:41 | CONS ---
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 He notes that a family member who is a physician in [facility] was visiting and did an abdominal exam, upon feeling a mass he was recommended to go to ER for w/u labs show Ca 19-9 51 and lipase >8000 on admission Had liver US on 09/14/18: 1. Innumerable hypoechoic liver lesions, compatible with metastatic disease. 2. No evidence of cholelithiasis or biliary ductal dilatation. 3. Right renal cyst. CT AP showed: 1. Findings suspicious for pulmonary embolism in the right lower lobe. Recommend follow-up contrast-enhanced chest CT (PE protocol) for confirmation. 2. Hypoenhancing pancreatic head mass, consistent with pancreatic ad enocarcinoma. 3. Innumerable hepatic metastases. MRCP w/o contrast: 1. Mass in the pancreatic head/uncinate process suspicious for pancreatic adenocarcinoma when correlated with prior CT imaging. No IV contrast administered on this exam. 2. Extensive metastatic disease throughout the right and left lobes of the liver. 3. Apparent mild peripancreatic inflammatory changes suggestive of a early/mild pancreatitis. 4. Common duct top normal in size measuring up to 0.8 cm. Distal duct tapers normally without evidence of choledocholithiasis. CT Chest: Multiple bilateral pulmonary emboli involving first and second order branches of the left upper lobe and lower lobe and right upper lobe and lower lobe. Normal caliber main pulmonary artery without evidence of pulmonary hypertension. Constitutional: no complaints, improved Eyes: no complaints ENT: no complaints Respiratory: no complaints Cardiovascular: no complaints Gastrointestinal: pain, decreased appetite, nausea Skin: no complaints Neurologic: no complaints Psychological: no complaints, nl mood/affect Past Medical History Medical History: diabetes, gallstones, hepatitis, hypertension, pancreatitis Home Meds Active Scripts Polyethylene Glycol* (Miralax*) 17 Gm Powd.pack, 17 GM PO DAILY, #7 Prov:DAVID ROLLE MD 12/12/17 Bisacodyl* (Dulcolax*) 5 Mg Tablet.dr, 10 MG PO DAILY PRN for CONSTIPATION, #10 TAB Prov:DAVID ROLLE MD 12/12/17 Tamsulosin Hcl* (Flomax*) 0.4 Mg Cap.er.24h, 0.4 MG PO QPM, #15 CAP Prov:DAIVD ROLLE MD 12/12/17 Zolpidem Tartrate* (Ambien*) 5 Mg Tablet, 5 MG PO HS PRN for INSOMNIA, #15 TAB Take this medication in bed. Do not stand up or get up until you have slept. Can cause falls and diziness. Prov:MARGARETTE HIGGINS DO 07/26/17 Amlodipine Besylate* (Amlodipine Besylate*) 10 Mg Tablet, 10 MG PO DAILY, #30 TAB Prov:MARGARETTE HIGGINS DO 07/26/17 Reported Medications Metformin Hcl* (Metformin Hcl*) 500 Mg Tablet, 500 MG PO WITH BREAKFAST DINNE, #60 TAB 07/25/17 Famotidine* (Famotidine*) 40 Mg Tablet, 40 MG PO DAILY, #30 TAB 07/25/17 Metoclopramide Hcl* (Metoclopramide Hcl*) 5 Mg Tablet, 5 MG PO WITH MEALS PRN for NAUSEA AND OR VOMITING, TAB 07/25/17 Glipizide* (Glipizide*) 10 Mg Tablet, 10 MG PO AC BREAKFAST, TAB 07/25/17 Losartan Potassium* (Losartan Potassium*) 50 Mg Tablet, 50 MG PO DAILY, TAB 07/25/17 Medications Current Medications IV Flush (NS 3 ml) 3 ml PER PROTOCOL IV ; Start 09/15/18 at 00:30 Lorazepam (Ativan) 0.5 mg Q8H PRN PO .ANXIETY; Start 09/15/18 at 00:30 Ondansetron HCl (Zofran Inj) 4 mg Q6H PRN IV NAUSEA/VOMITING; Start 09/15/18 at 00:30 Acetaminophen (Tylenol Tab) 650 mg Q6H PRN PO .PAIN 1-3 OR TEMP; Start 09/15/18 at 00:30 Hydromorphone HCl (Dilaudid) 0.5 mg Q4H PRN IV .PAIN 7-10 Last administered on 09/16/18at 00:07; Admin Dose 0.5 MG; Start 09/15/18 at 00:30 Docusate Sodium (Colace) 100 mg Q12H PRN PO .CONSTIPATION; Start 09/15/18 at 00:30 Bisacodyl (Dulcolax) 5 mg DAILY PRN PO .CONSTIPATION; Start 09/15/18 at 00:30 Heparin Sodium (Porcine) (Heparin (1000 Units/ml)) 5,500 unit PER PROTOCOL PRN IV aPTT<47 Last administered on 09/15/18at 02:03; Admin Dose 5,500 UNIT; Start 09/15/18 at 00:30 Heparin Sodium (Porcine) (Heparin (1000 Units/ml)) 2,800 unit PER PROTOCOL PRN IV aPTT<47-57; Start 09/15/18 at 00:30 Heparin Sodium (Porcine) 250 ml @ 12.5 mls/hr PER PROTOCOL IV Last administered on 09/16/18at 01:35; Admin Dose 14.5 MLS/HR; Start 09/15/18 at 00:15 Amlodipine Besylate (Norvasc) 10 mg DAILY PO Last administered on 09/15/18at 09:27; Admin Dose 10 MG; Start 09/15/18 at 09:00 Famotidine (Pepcid) 40 mg DAILY PO Last administered on 09/16/18at 08:29; Admin Dose 40 MG; Start 09/15/18 at 09:00 Tamsulosin HCl (Flomax) 0.4 mg QPM PO Last administered on 09/15/18at 20:38; Admin Dose 0.4 MG; Start 09/15/18 at 21:00 Insulin Glargine (Lantus) 10 units DAILY@2000 SC Last administered on 09/15/18at 20:37; Admin Dose 10 UNITS; Start 09/15/18 at 20:00 Insulin Aspart (Novolog Insulin Pen) 3 unit WITH MEALS SC ; Start 09/15/18 at 17:55 Insulin Aspart (Novolog Insulin Pen) NOVOLOG *MILD* ALGORITHM WITH MEALS BEDTIME SC ; Start 09/15/18 at 17:55 Miscellaneous Information 1 ea NOTE XX ; Start 09/15/18 at 14:00 Glucose (Glutose) 15 gm Q15M PRN PO DECREASED GLUCOSE; Start 09/15/18 at 14:00 Glucose (Glutose) 22.5 gm Q15M PRN PO DECREASED GLUCOSE; Start 09/15/18 at 14:00 Dextrose (D50w Syringe) 25 ml Q15M PRN IV DECREASED GLUCOSE; Start 09/15/18 at 14:00 Dextrose (D50w Syringe) 50 ml Q15M PRN IV DECREASED GLUCOSE; Start 09/15/18 at 14:00 Glucagon (Glucagen) 1 mg Q15M PRN IM DECREASED GLUCOSE; Start 09/15/18 at 14:00 Glucose (Glutose) 15 gm Q15M PRN BUCCAL DECREASED GLUCOSE; Start 09/15/18 at 14:00 Allergies: Coded Allergies: No Known Allergy (Unverified , 07/25/17) Past Surgical History Past Surgical Hx: no surgical history Social History Alcohol Use: none Smoking Status: Never smoker Drug Use: none Exam/Review of Systems Exam Vitals Vital Signs Date Temp Pulse Resp B/P (MAP) Pulse Ox O2 O2 Flow FiO2 Time Delivery Rate 09/16/18 97.4 112 18 105/49 94 Room Air 07:15 (67) Intake and Output 09/15/18 09/15/18 09/16/18 1515:00 23:00 07:00 IntakeIntake Total 694.2 ml 200 ml BalanceBalance 694.2 ml 200 ml Constitutional: alert, oriented, well developed Psych: no complaints, nl mood/affect Head: normocephalic, atraumatic Eyes: nl conjunctiva, EOMI, nl lids, nl sclera, PERRL ENMT: nl external ears & nose, nl lips & teeth, nl nasal mucosa & septum Neck: supple, non-tender Respiratory: clear to auscultation, normal air movement Gastrointestinal: mass Musculoskeletal: nl extremities to inspection Lymph: nl lymph nodes Results Result Diagram: 09/16/18 0545 09/16/18 0545 Results 24hrs Laboratory Tests Test 09/15/18 17:03 09/15/18 17:15 09/15/18 20:14 09/16/18 00:34 Bedside Glucose 93 147 Activated 62.5 H 63.8 H Partial Thromboplast Time Test 09/16/18 05:45 09/16/18 08:22 White Blood Count 12.3 H Red Blood Count 4.42 L Hemoglobin 9.8 L Hematocrit 31.1 L Mean Corpuscular 70.4 L Volume Mean Corpuscular 22.2 L Hemoglobin Mean Corpuscular 31.5 L Hemoglobin Concent Red Cell 19.1 H Distribution Width Platelet Count 300 Mean Platelet Volume 9.9 Immature 0.600 H Granulocytes % Neutrophils % 74.2 Lymphocytes % 12.2 L Monocytes % 11.0 Eosinophils % 1.6 Basophils % 0.4 Nucleated Red Blood 0.0 Cells % Immature 0.070 H Granulocytes # Neutrophils # 9.2 H Lymphocytes # 1.5 Monocytes # 1.4 H Eosinophils # 0.2 Basophils # 0.1 Nucleated Red Blood 0.0 Cells # Sodium Level 134 L Potassium Level 4.1 Chloride Level 106 Carbon Dioxide Level 21 Anion Gap 7 # Blood Urea Nitrogen 9 Creatinine 1.01 Est Glomerular Filtrat Rate mL/min Glucose Level 131 # Calcium Level 8.9 Magnesium Level 2.0 Total Bilirubin 0.4 Direct Bilirubin 0.00 Indirect Bilirubin 0.4 Aspartate Amino 143 H Transf (AST/SGOT) Alanine 168 H Aminotransferase (AL T/SGPT) Alkaline Phosphatase 482 H Total Protein 7.9 # Albumin 3.5 Globulin 4.40 H Albumin/Globulin 0.79 Ratio Triglycerides Level 163 H Cholesterol Level 200 LDL Cholesterol, 136 Calculated HDL Cholesterol 31 Cholesterol/HDL 6.4 Ratio Amylase Level 299 #H Lipase 2252 H Thyroid Stimulating 1.580 Hormone (TSH) Bedside Glucose 137 Medications Medication Current Medications IV Flush (NS 3 ml) 3 ml PER PROTOCOL IV ; Start 09/15/18 at 00:30 Lorazepam (Ativan) 0.5 mg Q8H PRN PO .ANXIETY; Start 09/15/18 at 00:30 Ondansetron HCl (Zofran Inj) 4 mg Q6H PRN IV NAUSEA/VOMITING; Start 09/15/18 at 00:30 Acetaminophen (Tylenol Tab) 650 mg Q6H PRN PO .PAIN 1-3 OR TEMP; Start 09/15/18 at 00:30 Hydromorphone HCl (Dilaudid) 0.5 mg Q4H PRN IV .PAIN 7-10 Last administered on 09/16/18at 00:07; Admin Dose 0.5 MG; Start 09/15/18 at 00:30 Docusate Sodium (Colace) 100 mg Q12H PRN PO .CONSTIPATION; Start 09/15/18 at 00:30 Bisacodyl (Dulcolax) 5 mg DAILY PRN PO .CONSTIPATION; Start 09/15/18 at 00:30 Heparin Sodium (Porcine) (Heparin (1000 Units/ml)) 5,500 unit PER PROTOCOL PRN IV aPTT<47 Last administered on 09/15/18at 02:03; Admin Dose 5,500 UNIT; Start 09/15/18 at 00:30 Heparin Sodium (Porcine) (Heparin (1000 Units/ml)) 2,800 unit PER PROTOCOL PRN IV aPTT<47-57; Start 09/15/18 at 00:30 Heparin Sodium (Porcine) 250 ml @ 12.5 mls/hr PER PROTOCOL IV Last administered on 09/16/18at 01:35; Admin Dose 14.5 MLS/HR; Start 09/15/18 at 00:15 Amlodipine Besylate (Norvasc) 10 mg DAILY PO Last administered on 09/15/18at 09:27; Admin Dose 10 MG; Start 09/15/18 at 09:00 Famotidine (Pepcid) 40 mg DAILY PO Last administered on 09/16/18at 08:29; Admin Dose 40 MG; Start 09/15/18 at 09:00 Tamsulosin HCl (Flomax) 0.4 mg QPM PO Last administered on 09/15/18at 20:38; Admin Dose 0.4 MG; Start 09/15/18 at 21:00 Insulin Glargine (Lantus) 10 units DAILY@2000 SC Last administered on 09/15/18at 20:37; Admin Dose 10 UNITS; Start 09/15/18 at 20:00 Insulin Aspart (Novolog Insulin Pen) 3 unit WITH MEALS SC ; Start 09/15/18 at 17:55 Insulin Aspart (Novolog Insulin Pen) NOVOLOG *MILD* ALGORITHM WITH MEALS BEDTIME SC ; Start 09/15/18 at 17:55 Miscellaneous Information 1 ea NOTE XX ; Start 09/15/18 at 14:00 Glucose (Glutose) 15 gm Q15M PRN PO DECREASED GLUCOSE; Start 09/15/18 at 14:00 Glucose (Glutose) 22.5 gm Q15M PRN PO DECREASED GLUCOSE; Start 09/15/18 at 14:00 Dextrose (D50w Syringe) 25 ml Q15M PRN IV DECREASED GLUCOSE; Start 09/15/18 at 14:00 Dextrose (D50w Syringe) 50 ml Q15M PRN IV DECREASED GLUCOSE; Start 09/15/18 at 14:00 Glucagon (Glucagen) 1 mg Q15M PRN IM DECREASED GLUCOSE; Start 09/15/18 at 14:00 Glucose (Glutose) 15 gm Q15M PRN BUCCAL DECREASED GLUCOSE; Start 09/15/18 at 14:00 MOSES STANLEY Sep 16, 2018 09:41
[2018-09-16] MEDS ORDERED: LIDOCAINE 1% (MPF) 5 ML VIAL ONE (14:06)
[2018-09-16] MEDS ORDERED: FENTAnyl 50 MCG/ML VIAL ONE (14:45)
[2018-09-16] MEDS ORDERED: MIDAZOLAM 1 MG/ML 2 ML INJ ONE (14:45)
[2018-09-16] MEDS ORDERED: PROPOFOL 20 ML ONE ×2 (14:48)
[2018-09-16] MEDS ORDERED: LIDOCAINE 2% (SDV) 5 ML INJ ONE (14:48)
--- NOTE | 2018-09-16 15:03 | PREAC ---
Date/Time of Note Date/Time of Note DATE: 09/16/18 TIME: 15:01 Anesthesia Eval and Record Evaluation Time Pre-Procedure Interview DATE: 09/16/18 TIME: 15:01 Age 78 Sex male NPO: 8 hrs Preoperative diagnosis Liver mass Planned procedure CT guided Liver biopsy Past Medical History Past Medical History: Includes Cardio: HTN, Dyslipidemia Endo: Diabetes Infection(s): Hep C Surgery & Anesthesia Issues No known issue Meds Anticoagulation: No Beta Erik within 24 hr: No Reason Beta Erik not given: Pt. not on B-Erik Active Scripts Polyethylene Glycol* (Miralax*) 17 Gm Powd.pack, 17 GM PO DAILY, #7 Prov:DAVID ROLLE MD 12/12/17 Bisacodyl* (Dulcolax*) 5 Mg Tablet.dr, 10 MG PO DAILY PRN for CONSTIPATION, #10 TAB Prov:DAVID ROLLE MD 12/12/17 Tamsulosin Hcl* (Flomax*) 0.4 Mg Cap.er.24h, 0.4 MG PO QPM, #15 CAP Prov:DAVID ROLLE MD 12/12/17 Zolpidem Tartrate* (Ambien*) 5 Mg Tablet, 5 MG PO HS PRN for INSOMNIA, #15 TAB Take this medication in bed. Do not stand up or get up until you have slept. Can cause falls and diziness. Prov:MARGARETTE HIGGINS DO 07/26/17 Amlodipine Besylate* (Amlodipine Besylate*) 10 Mg Tablet, 10 MG PO DAILY, #30 TAB Prov:MARGARETTE HIGGINS DO 07/26/17 Reported Medications Metformin Hcl* (Metformin Hcl*) 500 Mg Tablet, 500 MG PO WITH BREAKFAST DINNE, #60 TAB 07/25/17 Famotidine* (Famotidine*) 40 Mg Tablet, 40 MG PO DAILY, #30 TAB 07/25/17 Metoclopramide Hcl* (Metoclopramide Hcl*) 5 Mg Tablet, 5 MG PO WITH MEALS PRN for NAUSEA AND OR VOMITING, TAB 07/25/17 Glipizide* (Glipizide*) 10 Mg Tablet, 10 MG PO AC BREAKFAST, TAB 07/25/17 Losartan Potassium* (Losartan Potassium*) 50 Mg Tablet, 50 MG PO DAILY, TAB 07/25/17 Current Medications IV Flush (NS 3 ml) 3 ml PER PROTOCOL IV ; Start 09/15/18 at 00:30 Lorazepam (Ativan) 0.5 mg Q8H PRN PO .ANXIETY; Start 09/15/18 at 00:30 Ondansetron HCl (Zofran Inj) 4 mg Q6H PRN IV NAUSEA/VOMITING; Start 09/15/18 at 00:30 Acetaminophen (Tylenol Tab) 650 mg Q6H PRN PO .PAIN 1-3 OR TEMP; Start 09/15/18 at 00:30 Hydromorphone HCl (Dilaudid) 0.5 mg Q4H PRN IV .PAIN 7-10 Last administered on 09/16/18at 11:07; Admin Dose 0.5 MG; Start 09/15/18 at 00:30 Docusate Sodium (Colace) 100 mg Q12H PRN PO .CONSTIPATION; Start 09/15/18 at 00:30 Bisacodyl (Dulcolax) 5 mg DAILY PRN PO .CONSTIPATION; Start 09/15/18 at 00:30 Heparin Sodium (Porcine) (Heparin (1000 Units/ml)) 5,500 unit PER PROTOCOL PRN IV aPTT<47 Last administered on 09/15/18at 02:03; Admin Dose 5,500 UNIT; Start 09/15/18 at 00:30 Heparin Sodium (Porcine) (Heparin (1000 Units/ml)) 2,800 unit PER PROTOCOL PRN IV aPTT<47-57; Start 09/15/18 at 00:30 Heparin Sodium (Porcine) 250 ml @ 12.5 mls/hr PER PROTOCOL IV Last administered on 09/16/18at 01:35; Admin Dose 14.5 MLS/HR; Start 09/15/18 at 00:15 Amlodipine Besylate (Norvasc) 10 mg DAILY PO Last administered on 09/15/18at 09:27; Admin Dose 10 MG; Start 09/15/18 at 09:00 Famotidine (Pepcid) 40 mg DAILY PO Last administered on 09/16/18at 08:29; Admin Dose 40 MG; Start 09/15/18 at 09:00 Tamsulosin HCl (Flomax) 0.4 mg QPM PO Last administered on 09/15/18at 20:38; Admin Dose 0.4 MG; Start 09/15/18 at 21:00 Insulin Glargine (Lantus) 10 units DAILY@2000 SC Last administered on 09/15/18at 20:37; Admin Dose 10 UNITS; Start 09/15/18 at 20:00 Insulin Aspart (Novolog Insulin Pen) 3 unit WITH MEALS SC ; Start 09/15/18 at 17:55 Insulin Aspart (Novolog Insulin Pen) NOVOLOG *MILD* ALGORITHM WITH MEALS BEDTIME SC ; Start 09/15/18 at 17:55 Miscellaneous Information 1 ea NOTE XX ; Start 09/15/18 at 14:00 Glucose (Glutose) 15 gm Q15M PRN PO DECREASED GLUCOSE; Start 09/15/18 at 14:00 Glucose (Glutose) 22.5 gm Q15M PRN PO DECREASED GLUCOSE; Start 09/15/18 at 14:00 Dextrose (D50w Syringe) 25 ml Q15M PRN IV DECREASED GLUCOSE; Start 09/15/18 at 14:00 Dextrose (D50w Syringe) 50 ml Q15M PRN IV DECREASED GLUCOSE; Start 09/15/18 at 14:00 Glucagon (Glucagen) 1 mg Q15M PRN IM DECREASED GLUCOSE; Start 09/15/18 at 14:00 Glucose (Glutose) 15 gm Q15M PRN BUCCAL DECREASED GLUCOSE; Start 09/15/18 at 14:00 Meds reviewed: Yes Allergies Coded Allergies: No Known Allergy (Unverified , 07/25/17) Allergies Reviewed: Yes Labs/Studies Labs Reviewed: Reviewed by anesthesiologist Result Diagram: 09/16/18 0545 09/16/18 0545 Laboratory Tests 09/16/18 05:45 test: N/A Studies: ECG Pre-procedure Exam Last vitals Vital Signs Date Temp Pulse Resp B/P (MAP) Pulse Ox O2 O2 Flow FiO2 Time Delivery Rate 09/16/18 114 12:49 09/16/18 98.0 18 128/58 96 Room Air 11:00 (81) Airway: Adequate mouth opening, Adequate thyromental dist Mallampati: Mallampati II Teeth: Normal Lung: Normal Heart: Normal ASA Physical Status ASA physical status: 4 Emergency: None Planned Anesthetic General/MAC: MAC Planned Pain Management Parenteral pain med Pre-operative Attestations Prior to commencing anesthesia and surgery, the patient was re-evaluated, there was verification of: *The patient's identity *The results of appropriate recent lab work and preoperative vital signs *The above evaluation not changing prior to induction *Anesthetic plan, risk benefits, alternative and complications discussed with patient/family; questions answered; patient/family understands, accepts and wishes to proceed. SHILOH MCKAY MD Sep 16, 2018 15:03
--- NOTE | 2018-09-16 15:17 | PN ---
Date/Time of Note Date/Time of Note DATE: 09/16/18 TIME: 15:15 Assessment/Plan VTE Prophylaxis Risk score (from Nsg)>0 risk: 6 Pharmacological prophylaxis: heparin Lines/Catheters IV Catheter Type (from Nrsg): Saline Lock Urinary Cath still in place: No Assessment/Plan Hospital Course 78 yo male with DMII and HTN who presented with abdominal pain and found to have pancreatic mass with multiple liver lesions consistent with likely metastatic pancreatic cancer. Also found to have PE - Will require tissue diagnosis, CT-guided liver biopsy today -Oncology consultation appreciated - Pain control PE: - On heparin drip for now pending procedure - Should be on lovenox for malignancy associate VTE thereafter DMII: - Basal/bolus Prophylaxis: Heparin drip Result Diagram: 09/16/1845 09/16/1845 Results 24hrs Laboratory Tests Test 09/15/18 17:03 09/15/18 17:15 09/15/18 20:14 09/16/18 00:34 Bedside Glucose 93 147 Activated 62.5 H 63.8 H Partial Thromboplast Time Test 09/16/18 05:45 09/16/18 08:22 09/16/18 08:36 09/16/18 12:25 White Blood Count 12.3 H Red Blood Count 4.42 L Hemoglobin 9.8 L Hematocrit 31.1 L Mean Corpuscular 70.4 L Volume Mean Corpuscular 22.2 L Hemoglobin Mean Corpuscular 31.5 L Hemoglobin Concent Red Cell 19.1 H Distribution Width Platelet Count 300 Mean Platelet Volume 9.9 Immature 0.600 H Granulocytes % Neutrophils % 74.2 Lymphocytes % 12.2 L Monocytes % 11.0 Eosinophils % 1.6 Basophils % 0.4 Nucleated Red Blood 0.0 Cells % Immature 0.070 H Granulocytes # Neutrophils # 9.2 H Lymphocytes # 1.5 Monocytes # 1.4 H Eosinophils # 0.2 Basophils # 0.1 Nucleated Red Blood 0.0 Cells # Sodium Level 134 L Potassium Level 4.1 Chloride Level 106 Carbon Dioxide Level 21 Anion Gap 7 # Blood Urea Nitrogen 9 Creatinine 1.01 Est Glomerular Filtrat Rate mL/min Glucose Level 131 # Calcium Level 8.9 Magnesium Level 2.0 Total Bilirubin 0.4 Direct Bilirubin 0.00 Indirect Bilirubin 0.4 Aspartate Amino 143 H Transf (AST/SGOT) Alanine 168 H Aminotransferase (AL T/SGPT) Alkaline Phosphatase 482 H Total Protein 7.9 # Albumin 3.5 Globulin 4.40 H Albumin/Globulin 0.79 Ratio Triglycerides Level 163 H Cholesterol Level 200 LDL Cholesterol, 136 Calculated HDL Cholesterol 31 Cholesterol/HDL 6.4 Ratio Amylase Level 299 #H Lipase 2252 H Thyroid Stimulating 1.580 Hormone (TSH) Bedside Glucose 137 143 Activated 81.3 *H Partial Thromboplast Time Subjective 24 Hr Interval Summary Gastrointestinal: pain Exam/Review of Systems Exam Vitals Vital Signs Date Temp Pulse Resp B/P (MAP) Pulse Ox O2 O2 Flow FiO2 Time Delivery Rate 09/16/18 114 12:49 09/16/18 98.0 18 128/58 96 Room Air 11:00 (81) Intake and Output 09/15/18 09/15/18 09/16/18 1515:00 23:00 07:00 IntakeIntake Total 694.2 ml 200 ml BalanceBalance 694.2 ml 200 ml Constitutional: alert, oriented Respiratory: clear to auscultation Cardiovascular: regular rate and rhythm Gastrointestinal: soft; No distended Musculoskeletal: nl extremities to inspection Results Results 24hrs Laboratory Tests Test 09/15/18 17:03 09/15/18 17:15 09/15/18 20:14 09/16/18 00:34 Bedside Glucose 93 147 Activated 62.5 H 63.8 H Partial Thromboplast Time Test 09/16/18 05:45 09/16/18 08:22 09/16/18 08:36 09/16/18 12:25 White Blood Count 12.3 H Red Blood Count 4.42 L Hemoglobin 9.8 L Hematocrit 31.1 L Mean Corpuscular 70.4 L Volume Mean Corpuscular 22.2 L Hemoglobin Mean Corpuscular 31.5 L Hemoglobin Concent Red Cell 19.1 H Distribution Width Platelet Count 300 Mean Platelet Volume 9.9 Immature 0.600 H Granulocytes % Neutrophils % 74.2 Lymphocytes % 12.2 L Monocytes % 11.0 Eosinophils % 1.6 Basophils % 0.4 Nucleated Red Blood 0.0 Cells % Immature 0.070 H Granulocytes # Neutrophils # 9.2 H Lymphocytes # 1.5 Monocytes # 1.4 H Eosinophils # 0.2 Basophils # 0.1 Nucleated Red Blood 0.0 Cells # Sodium Level 134 L Potassium Level 4.1 Chloride Level 106 Carbon Dioxide Level 21 Anion Gap 7 # Blood Urea Nitrogen 9 Creatinine 1.01 Est Glomerular Filtrat Rate mL/min Glucose Level 131 # Calcium Level 8.9 Magnesium Level 2.0 Total Bilirubin 0.4 Direct Bilirubin 0.00 Indirect Bilirubin 0.4 Aspartate Amino 143 H Transf (AST/SGOT) Alanine 168 H Aminotransferase (AL T/SGPT) Alkaline Phosphatase 482 H Total Protein 7.9 # Albumin 3.5 Globulin 4.40 H Albumin/Globulin 0.79 Ratio Triglycerides Level 163 H Cholesterol Level 200 LDL Cholesterol, 136 Calculated HDL Cholesterol 31 Cholesterol/HDL 6.4 Ratio Amylase Level 299 #H Lipase 2252 H Thyroid Stimulating 1.580 Hormone (TSH) Bedside Glucose 137 143 Activated 81.3 *H Partial Thromboplast Time Medications Medication Current Medications IV Flush (NS 3 ml) 3 ml PER PROTOCOL IV ; Start 09/15/18 at 00:30 Lorazepam (Ativan) 0.5 mg Q8H PRN PO .ANXIETY; Start 09/15/18 at 00:30 Ondansetron HCl (Zofran Inj) 4 mg Q6H PRN IV NAUSEA/VOMITING; Start 09/15/18 at 00:30 Acetaminophen (Tylenol Tab) 650 mg Q6H PRN PO .PAIN 1-3 OR TEMP; Start 09/15/18 at 00:30 Hydromorphone HCl (Dilaudid) 0.5 mg Q4H PRN IV .PAIN 7-10 Last administered on 09/16/18at 11:07; Admin Dose 0.5 MG; Start 09/15/18 at 00:30 Docusate Sodium (Colace) 100 mg Q12H PRN PO .CONSTIPATION; Start 09/15/18 at 0 0:30 Bisacodyl (Dulcolax) 5 mg DAILY PRN PO .CONSTIPATION; Start 09/15/18 at 00:30 Heparin Sodium (Porcine) (Heparin (1000 Units/ml)) 5,500 unit PER PROTOCOL PRN IV aPTT<47 Last administered on 09/15/18at 02:03; Admin Dose 5,500 UNIT; Start 09/15/18 at 00:30 Heparin Sodium (Porcine) (Heparin (1000 Units/ml)) 2,800 unit PER PROTOCOL PRN IV aPTT<47-57; Start 09/15/18 at 00:30 Heparin Sodium (Porcine) 250 ml @ 12.5 mls/hr PER PROTOCOL IV Last administered on 09/16/18at 01:35; Admin Dose 14.5 MLS/HR; Start 09/15/18 at 00:15 Amlodipine Besylate (Norvasc) 10 mg DAILY PO Last administered on 09/15/18at 09:27; Admin Dose 10 MG; Start 09/15/18 at 09:00 Famotidine (Pepcid) 40 mg DAILY PO Last administered on 09/16/18at 08:29; Admin Dose 40 MG; Start 09/15/18 at 09:00 Tamsulosin HCl (Flomax) 0.4 mg QPM PO Last administered on 09/15/18at 20:38; Admin Dose 0.4 MG; Start 09/15/18 at 21:00 Insulin Glargine (Lantus) 10 units DAILY@2000 SC Last administered on 09/15/18at 20:37; Admin Dose 10 UNITS; Start 09/15/18 at 20:00 Insulin Aspart (Novolog Insulin Pen) 3 unit WITH MEALS SC ; Start 09/15/18 at 17:55 Insulin Aspart (Novolog Insulin Pen) NOVOLOG *MILD* ALGORITHM WITH MEALS BEDTIME SC ; Start 09/15/18 at 17:55 Miscellaneous Information 1 ea NOTE XX ; Start 09/15/18 at 14:00 Glucose (Glutose) 15 gm Q15M PRN PO DECREASED GLUCOSE; Start 09/15/18 at 14:00 Glucose (Glutose) 22.5 gm Q15M PRN PO DECREASED GLUCOSE; Start 09/15/18 at 14:00 Dextrose (D50w Syringe) 25 ml Q15M PRN IV DECREASED GLUCOSE; Start 09/15/18 at 14:00 Dextrose (D50w Syringe) 50 ml Q15M PRN IV DECREASED GLUCOSE; Start 09/15/18 at 14:00 Glucagon (Glucagen) 1 mg Q15M PRN IM DECREASED GLUCOSE; Start 09/15/18 at 14:00 Glucose (Glutose) 15 gm Q15M PRN BUCCAL DECREASED GLUCOSE; Start 09/15/18 at 14:00 MODE DAWSON Sep 16, 2018 15:17
--- NOTE | 2018-09-16 15:46 | PAC ---
Date/Time of Note Date/Time of Note DATE: 09/16/18 TIME: 15:45 Post-Anesthesia Notes Post-Anesthesia Note Last documented vital signs Vital Signs Date Temp Pulse Resp B/P (MAP) Pulse Ox O2 O2 Flow FiO2 Time Delivery Rate 09/16/18 114 12:49 09/16/18 98.0 18 128/58 96 Room Air 11:00 (81) Activity: WNL Respiratory function: WNL Cardiovascular function: WNL Mental status: Baseline Pain reasonably controlled: Yes Hydration appropriate: Yes Nausea/Vomiting absent: Yes Comments BP:112/67, P:74, spo2:96, T:98,2 SHILOH MCKAY MD Sep 16, 2018 15:46
--- NOTE | 2018-09-16 15:53 | HPN ---
Date/Time of Note Date/Time of Note DATE: 09/16/18 TIME: 15:53 Interval H&P Admission Note Pt. seen H&P reviewed: No system changes JOSHUA DHALIWAL MD Sep 16, 2018 15:53
[2018-09-16] MEDS ORDERED: FENTAnyl 50 MCG/ML VIAL IV PRN (16:00)
[2018-09-16] MEDS ORDERED: DIPHENHYDRAMINE 50 MG INJ IV PRN (16:00)
[2018-09-16] MEDS ORDERED: MEPERIDINE 25 MG INJ IV PRN (16:00)
[2018-09-16] MEDS ORDERED: ONDANSETRON 4 MG INJ IV PRN (16:00)
--- NOTE | 2018-09-16 16:28 | PN ---
Date/Time of Note Date/Time of Note DATE: 09/16/18 TIME: 16:23 Assessment/Plan VTE Prophylaxis Risk score (from Nsg)>0 risk: 6 Pharmacological prophylaxis: other (scds) Lines/Catheters IV Catheter Type (from Nrsg): Saline Lock Urinary Cath still in place: No Assessment/Plan Hospital Course Assessment/Plan Epigastric abdominal pain - 2/2 to pancreatitis, possibly due to gallstone pancreatitis vs pancreatic cancer Metastatic pancreatic cancer with liver metastasis Pulmonary embolism evidence as evidence on CT HTN - stable on current medications, continue to monitor Anemia - stable Plan: S/p CT guided liver biopsy for tissue diagnosis- today- pathology pending Tumor markers, CEA (11.7) , CA 19-9 (51), AFP (3.43) Await input from medical oncology ACT- per hospitalist team monitor H and H, transfuse as needed to keep Hgb <7 A/I panel- pending MRCP- reviewed NPO with IV hydration Continue GI ppx with H2 justina The patient was seen in collaboration with Dr. Pratt/Juan Subjective: Course reviewed with nursing staff Patient interviewed and examined All labs, imaging and other results reviewed The patient just returned from CT liver bx, currently resting in bed no acute distress. Family at bedside. No c/o n/v Maintain NPO status for now. Constitutional: alert, oriented Psych: no complaints; No nl mood/affect, No anxiety, No confusion, No depression, No suicidal, No other Head: normocephalic, atraumatic Eyes: nl conjunctiva; No EOMI, No nl lids, No nl sclera, No PERRL, No icteric, No fundi, disc, No other ENMT: No nl external ears & nose, No nl lips & teeth, No nl nasal mucosa & septum, No mucosa pink and moist, No intubated, No tympanic membranes, No other Gastrointestinal: soft, bowel sounds, tender (moderate upper quadrant abdominal pain to palpation) Genitourinary - Male: No nl penis, No nl scrotum, No CVA tenderness, No discharge, No other Musculoskeletal: No nl extremities to inspection, No nl gait and stance, No joint tenderness, No muscle tone, No muscle weakness, No range of motion, No spine non-tender, No swelling, No other Extremities: No normal pulses, No calf tenderness, No cyanosis, No clubbing, No edema, No pitting pedal edema, No palpable cord, No tenderness, No other Result Diagram: 09/16/18 0545 09/16/18 0545 Results 24hrs Laboratory Tests Test 09/15/18 17:03 09/15/18 17:15 09/15/18 20:14 09/16/18 00:34 Bedside Glucose 93 147 Activated 62.5 H 63.8 H Partial Thromboplast Time Test 09/16/18 05:45 09/16/18 08:22 09/16/18 08:36 09/16/18 12:25 White Blood Count 12.3 H Red Blood Count 4.42 L Hemoglobin 9.8 L Hematocrit 31.1 L Mean Corpuscular 70.4 L Volume Mean Corpuscular 22.2 L Hemoglobin Mean Corpuscular 31.5 L Hemoglobin Concent Red Cell 19.1 H Distribution Width Platelet Count 300 Mean Platelet Volume 9.9 Immature 0.600 H Granulocytes % Neutrophils % 74.2 Lymphocytes % 12.2 L Monocytes % 11.0 Eosinophils % 1.6 Basophils % 0.4 Nucleated Red Blood 0.0 Cells % Immature 0.070 H Granulocytes # Neutrophils # 9.2 H Lymphocytes # 1.5 Monocytes # 1.4 H Eosinophils # 0.2 Basophils # 0.1 Nucleated Red Blood 0.0 Cells # Sodium Level 134 L Potassium Level 4.1 Chloride Level 106 Carbon Dioxide Level 21 Anion Gap 7 # Blood Urea Nitrogen 9 Creatinine 1.01 Est Glomerular Filtrat Rate mL/min Glucose Level 131 # Calcium Level 8.9 Magnesium Level 2.0 Total Bilirubin 0.4 Direct Bilirubin 0.00 Indirect Bilirubin 0.4 Aspartate Amino 143 H Transf (AST/SGOT) Alanine 168 H Aminotransferase (AL T/SGPT) Alkaline Phosphatase 482 H Total Protein 7.9 # Albumin 3.5 Globulin 4.40 H Albumin/Globulin 0.79 Ratio Triglycerides Level 163 H Cholesterol Level 200 LDL Cholesterol, 136 Calculated HDL Cholesterol 31 Cholesterol/HDL 6.4 Ratio Amylase Level 299 #H Lipase 2252 H Thyroid Stimulating 1.580 Hormone (TSH) Bedside Glucose 137 143 Activated 81.3 *H Partial Thromboplast Time Exam/Review of Systems Exam Vitals Vital Signs Date Temp Pulse Resp B/P (MAP) Pulse Ox O2 O2 Flow FiO2 Time Delivery Rate 09/16/18 112 24 96 16:12 09/16/18 140/71 Nasal 16:07 (94) Cannula 09/16/18 98.8 15:42 Intake and Output 09/15/18 09/15/18 09/16/18 1515:00 23:00 07:00 IntakeIntake Total 694.2 ml 200 ml BalanceBalance 694.2 ml 200 ml Results Results 24hrs Laboratory Tests Test 09/15/18 17:03 09/15/18 17:15 09/15/18 20:14 09/16/18 00:34 Bedside Glucose 93 147 Activated 62.5 H 63.8 H Partial Thromboplast Time Test 09/16/18 05:45 09/16/18 08:22 09/16/18 08:36 09/16/18 12:25 White Blood Count 12.3 H Red Blood Count 4.42 L Hemoglobin 9.8 L Hematocrit 31.1 L Mean Corpuscular 70.4 L Volume Mean Corpuscular 22.2 L Hemoglobin Mean Corpuscular 31.5 L Hemoglobin Concent Red Cell 19.1 H Distribution Width Platelet Count 300 Mean Platelet Volume 9.9 Immature 0.600 H Granulocytes % Neutrophils % 74.2 Lymphocytes % 12.2 L Monocytes % 11.0 Eosinophils % 1.6 Basophils % 0.4 Nucleated Red Blood 0.0 Cells % Immature 0.070 H Granulocytes # Neutrophils # 9.2 H Lymphocytes # 1.5 Monocytes # 1.4 H Eosinophils # 0.2 Basophils # 0.1 Nucleated Red Blood 0.0 Cells # Sodium Level 134 L Potassium Level 4.1 Chloride Level 106 Carbon Dioxide Level 21 Anion Gap 7 # Blood Urea Nitrogen 9 Creatinine 1.01 Est Glomerular Filtrat Rate mL/min Glucose Level 131 # Calcium Level 8.9 Magnesium Level 2.0 Total Bilirubin 0.4 Direct Bilirubin 0.00 Indirect Bilirubin 0.4 Aspartate Amino 143 H Transf (AST/SGOT) Alanine 168 H Aminotransferase (AL T/SGPT) Alkaline Phosphatase 482 H Total Protein 7.9 # Albumin 3.5 Globulin 4.40 H Albumin/Globulin 0.79 Ratio Triglycerides Level 163 H Cholesterol Level 200 LDL Cholesterol, 136 Calculated HDL Cholesterol 31 Cholesterol/HDL 6.4 Ratio Amylase Level 299 #H Lipase 2252 H Thyroid Stimulating 1.580 Hormone (TSH) Bedside Glucose 137 143 Activated 81.3 *H Partial Thromboplast Time Medications Medication Current Medications IV Flush (NS 3 ml) 3 ml PER PROTOCOL IV ; Start 09/15/18 at 00:30 Lorazepam (Ativan) 0.5 mg Q8H PRN PO .ANXIETY; Start 09/15/18 at 00:30 Ondansetron HCl (Zofran Inj) 4 mg Q6H PRN IV NAUSEA/VOMITING; Start 09/15/18 at 00:30 Acetaminophen (Tylenol Tab) 650 mg Q6H PRN PO .PAIN 1-3 OR TEMP; Start 09/15/18 at 00:30 Hydromorphone HCl (Dilaudid) 0.5 mg Q4H PRN IV .PAIN 7-10 Last administered on 09/16/18at 11:07; Admin Dose 0.5 MG; Start 09/15/18 at 00:30 Docusate Sodium (Colace) 100 mg Q12H PRN PO .CONSTIPATION; Start 09/15/18 at 00:30 Bisacodyl (Dulcolax) 5 mg DAILY PRN PO .CONSTIPATION; Start 09/15/18 at 00:30 Heparin Sodium (Porcine) (Heparin (1000 Units/ml)) 5,500 unit PER PROTOCOL PRN IV aPTT<47 Last administered on 09/15/18at 02:03; Admin Dose 5,500 UNIT; Start 09/15/18 at 00:30 Heparin Sodium (Porcine) (Heparin (1000 Units/ml)) 2,800 unit PER PROTOCOL PRN IV aPTT<47-57; Start 09/15/18 at 00:30 Heparin Sodium (Porcine) 250 ml @ 12.5 mls/hr PER PROTOCOL IV Last administered on 09/16/18at 01:35; Admin Dose 14.5 MLS/HR; Start 09/15/18 at 00:15 Amlodipine Besylate (Norvasc) 10 mg DAILY PO Last administered on 09/15/18at 09:27; Admin Dose 10 MG; Start 09/15/18 at 09:00 Famotidine (Pepcid) 40 mg DAILY PO Last administered on 09/16/18at 08:29; Admin Dose 40 MG; Start 09/15/18 at 09:00 Tamsulosin HCl (Flomax) 0.4 mg QPM PO Last administered on 09/15/18at 20:38; Admin Dose 0.4 MG; Start 09/15/18 at 21:00 Insulin Glargine (Lantus) 10 units DAILY@2000 SC Last administered on 09/15/18at 20:37; Admin Dose 10 UNITS; Start 09/15/18 at 20:00 Insulin Aspart (Novolog Insulin Pen) 3 unit WITH MEALS SC ; Start 09/15/18 at 17:55 Insulin Aspart (Novolog Insulin Pen) NOVOLOG *MILD* ALGORITHM WITH MEALS BEDTIME SC ; Start 09/15/18 at 17:55 Miscellaneous Information 1 ea NOTE XX ; Start 09/15/18 at 14:00 Glucose (Glutose) 15 gm Q15M PRN PO DECREASED GLUCOSE; Start 09/15/18 at 14:00 Glucose (Glutose) 22.5 gm Q15M PRN PO DECREASED GLUCOSE; Start 09/15/18 at 14:00 Dextrose (D50w Syringe) 25 ml Q15M PRN IV DECREASED GLUCOSE; Start 09/15/18 at 14:00 Dextrose (D50w Syringe) 50 ml Q15M PRN IV DECREASED GLUCOSE; Start 09/15/18 at 14:00 Glucagon (Glucagen) 1 mg Q15M PRN IM DECREASED GLUCOSE; Start 09/15/18 at 14:00 Glucose (Glutose) 15 gm Q15M PRN BUCCAL DECREASED GLUCOSE; Start 09/15/18 at 14:00 Fentanyl (Sublimaze) 25 mcg PACU ORDER PRN IV MILD PAIN 1-3; Start 09/16/18 at 16:00; Stop 09/16/18 at 20:00 Ondansetron HCl (Zofran Inj) 4 mg PACU ORDER PRN IV NAUSEA/VOMITING; Start 09/16/18 at 16:00; Stop 09/16/18 at 20:00 Meperidine HCl (Demerol) 25 mg PACU ORDER PRN IV .RIGORS; Start 09/16/18 at 16:00; Stop 09/16/18 at 20:00 Diphenhydramine HCl (Benadryl) 25 mg PACU ORDER PRN IV .PRURITUS; Start 09/16/18 at 16:00; Stop 09/16/18 at 20:00 JEISON ARREAGA Sep 16, 2018 16:28
--- NOTE | 2018-09-16 17:04 | EN ---
Date/Time of Note Date/Time of Note DATE: 09/16/18 TIME: 17:02 Event Note Medicine Medicine Event Note Called to provide consultation but pt had already been seen by Dr Aggarwal. Thank you, MD JAVIER Avitia STANLEY H MD Sep 16, 2018 17:04
[2018-09-16] MEDS: TAMSULOSIN (SR) 0.4 MG CAP PO SCH (20:59)
[2018-09-16] MEDS: INSULIN GLARGINE [LANTus] (100 UNITS/ML) SYG SC SCH (21:03)
[2018-09-17] VITALS (10 sets, daily range): BP systolic 120–136; BP diastolic 56–86; PULSE 110–122; RESP 19–24
[2018-09-17] MEDS: HYDROmorphONE 0.5 MG/0.5 ML SYG IV PRN ×3 (04:08→14:10)
[2018-09-17] MEDS: AMLODIPINE 10 MG TAB PO SCH (09:10)
[2018-09-17] MEDS: FAMOTIDINE 20 MG TAB PO SCH (09:10)
[2018-09-17] MEDS: INSULIN ASPART [NOVOLOG] 3 ML PEN SC SCH ×7 (09:14→21:00)
--- NOTE | 2018-09-17 13:47 | CONS ---
Assessment/Plan Assessment/Plan Assessment/Plan (Daily) Pleasant 78 yo with abdominal discomfort presented to ER, scans show pancreatic and liver masses #pancreatic mass and liver masses situation concerning for met pancreatica ca need tissue diagnosis, for biopsy this afternoon typically stage IV pancreatic is treated with multiagent chemo such as FOLF IRINOX or Gemcitabine + abraxane unfortunately even with aggressive chemo, stage IV pancreatic has grim prognosis # PE -will need indefinite anticoagulation due to underlying malignancy -heparin is stopped per PMD - will start on Eliquis 10 m po BID X 1 week; Eliquis 5mg PO BID thereafter # microcytic anemia- Hgb 10.2 - elevated ferritin Patient seen in collaboration with Dr Boss Consultation Date/Type/Reason Admit Date/Time Sep 14, 2018 at 22:54 Initial Consult Date 09/15/18 Requesting Provider: LIZETTE YUAN Date/Time of Note DATE: 09/17/18 TIME: 13:39 24 HR Interval Summary Free Text/Dictation lying in bed;c/o shortness of breath on exertion denies any pain feels better no new issues reported overnight Exam/Review of Systems Exam Vitals Vital Signs Date Temp Pulse Resp B/P (MAP) Pulse Ox O2 O2 Flow FiO2 Time Delivery Rate 09/17/18 110 12:00 09/17/18 98.2 19 121/56 95 11:29 (77) 09/16/18 Nasal 3.0 20:00 Cannula Intake and Output 09/16/18 09/16/18 09/17/18 1414:59 22:59 06:59 IntakeIntake Total 351.5 ml BalanceBalance 351.5 ml Constitutional: alert, well developed Psych: no complaints Eyes: EOMI, nl lids, nl sclera ENMT: nl external ears & nose Neck: non-tender Respiratory: diminished breath sounds (bilaterally) Cardiovascular: nl pulses, other (s1s2) Gastrointestinal: soft, non-tender Musculoskeletal: nl extremities to inspection Extremities: normal pulses Neurological: nl speech, other (alert/responsive) Skin: nl turgor Lymph: nontender Results Result Diagram: 09/17/18 0536 09/17/1836 Results 24hrs Laboratory Tests Test 09/16/18 17:14 09/16/18 17:33 09/16/18 20:55 09/16/18 22:12 Activated 33.7 71.2 *H Partial Thromboplast Time Iron Level 36 Total Iron Binding 341 Capacity Percent Iron 11 L Saturation Ferritin 299.0 H Bedside Glucose 118 197 Test 09/17/18 05:36 09/17/18 07:51 09/17/18 09:08 09/17/18 12:01 White Blood Count 11.4 H Red Blood Count 4.68 L Hemoglobin 10.2 L Hematocrit 33.0 L Mean Corpuscular 70.5 L Volume Mean Corpuscular 21.8 L Hemoglobin Mean Corpuscular 30.9 L Hemoglobin Concent Red Cell 18.9 H Distribution Width Platelet Count 328 Mean Platelet Volume 10.4 Immature 0.700 H Granulocytes % Neutrophils % 77.0 Lymphocytes % 9.8 L Monocytes % 10.6 Eosinophils % 1.6 Basophils % 0.3 Nucleated Red Blood 0.0 Cells % Immature 0.080 H Granulocytes # Neutrophils # 8.8 H Lymphocytes # 1.1 Monocytes # 1.2 H Eosinophils # 0.2 Basophils # 0.0 Nucleated Red Blood 0.0 Cells # Activated 83.9 *H Partial Thromboplast Time Sodium Level 135 Potassium Level 3.8 Chloride Level 101 Carbon Dioxide Level 22 Anion Gap 12 Blood Urea Nitrogen 12 Creatinine 1.00 Est Glomerular Filtrat Rate mL/min Glucose Level 221 H Calcium Level 9.2 Bedside Glucose 182 170 165 Medications Medication Current Medications IV Flush (NS 3 ml) 3 ml PER PROTOCOL IV ; Start 09/15/18 at 00:30 Lorazepam (Ativan) 0.5 mg Q8H PRN PO .ANXIETY; Start 09/15/18 at 00:30 Ondansetron HCl (Zofran Inj) 4 mg Q6H PRN IV NAUSEA/VOMITING; Start 09/15/18 at 00:30 Acetaminophen (Tylenol Tab) 650 mg Q6H PRN PO .PAIN 1-3 OR TEMP; Start 09/15/18 at 00:30 Hydromorphone HCl (Dilaudid) 0.5 mg Q4H PRN IV .PAIN 7-10 Last administered on 09/17/18at 09:18; Admin Dose 0.5 MG; Start 09/15/18 at 00:30 Docusate Sodium (Colace) 100 mg Q12H PRN PO .CONSTIPATION; Start 09/15/18 at 00:30 Bisacodyl (Dulcolax) 5 mg DAILY PRN PO .CONSTIPATION; Start 09/15/18 at 00:30 Amlodipine Besylate (Norvasc) 10 mg DAILY PO Last administered on 09/17/18at 09:10; Admin Dose 10 MG; Start 09/15/18 at 09:00 Famotidine (Pepcid) 40 mg DAILY PO Last administered on 09/17/18 09:10; Admin Dose 40 MG; Start 09/15/18 at 09:00 Tamsulosin HCl (Flomax) 0.4 mg QPM PO Last administered on 09/16/18at 20:59; Admin Dose 0.4 MG; Start 09/15/18 at 21:00 Insulin Glargine (Lantus) 10 units DAILY@2000 SC Last administered on 09/16/18at 21:03; Admin Dose 10 UNITS; Start 09/15/18 at 20:00 Insulin Aspart (Novolog Insulin Pen) 3 unit WITH MEALS SC Last administered on 09/17/18 12:14; Admin Dose 3 UNIT; Start 09/15/18 at 17:55 Insulin Aspart (Novolog Insulin Pen) NOVOLOG *MILD* ALGORITHM WITH MEALS BEDTIME SC Last administered on 09/17/18 12:14; Admin Dose 1 UNIT; Start 09/15/18 at 17:55 Miscellaneous Information 1 ea NOTE XX ; Start 09/15/18 at 14:00 Glucose (Glutose) 15 gm Q15M PRN PO DECREASED GLUCOSE; Start 09/15/18 at 14:00 Glucose (Glutose) 22.5 gm Q15M PRN PO DECREASED GLUCOSE; Start 09/15/18 at 14:00 Dextrose (D50w Syringe) 25 ml Q15M PRN IV DECREASED GLUCOSE; Start 09/15/18 at 14:00 Dextrose (D50w Syringe) 50 ml Q15M PRN IV DECREASED GLUCOSE; Start 09/15/18 at 14:00 Glucagon (Glucagen) 1 mg Q15M PRN IM DECREASED GLUCOSE; Start 09/15/18 at 14:00 Glucose (Glutose) 15 gm Q15M PRN BUCCAL DECREASED GLUCOSE; Start 09/15/18 at 14:00 JORDYN GARCIAS Sep 17, 2018 1:47 pm
--- NOTE | 2018-09-17 14:57 | PN ---
Date/Time of Note Date/Time of Note DATE: 09/17/18 TIME: 14:54 Assessment/Plan VTE Prophylaxis Risk score (from Nsg)>0 risk: 7 Pharmacological prophylaxis: apixaban Lines/Catheters IV Catheter Type (from Nrsg): Peripheral IV Urinary Cath still in place: No Assessment/Plan Hospital Course 78 yo male with DMII and HTN who presented with abdominal pain and found to have pancreatic mass with multiple liver lesions consistent with likely metastatic pancreatic cancer. Also found to have PE - Will require tissue diagnosis, status post CT-guided liver biopsy, follow-up on pathology -Oncology consultation appreciated - Pain control PE: -DC heparin drip, transition to Eliquis Epistaxis secondary to heparin -DC heparin, transition to Eliquis DMII: - Basal/bolus Prophylaxis: Eliquis Result Diagram: 09/17/18 0536 09/17/18 0536 Results 24hrs Laboratory Tests Test 09/16/18 17:14 09/16/18 17:33 09/16/18 20:55 09/16/18 22:12 Activated 33.7 71.2 *H Partial Thromboplast Time Iron Level 36 Total Iron Binding 341 Capacity Percent Iron 11 L Saturation Ferritin 299.0 H Bedside Glucose 118 197 Test 09/17/18 05:36 09/17/18 07:51 09/17/18 09:08 09/17/18 12:01 White Blood Count 11.4 H Red Blood Count 4.68 L Hemoglobin 10.2 L Hematocrit 33.0 L Mean Corpuscular 70.5 L Volume Mean Corpuscular 21.8 L Hemoglobin Mean Corpuscular 30.9 L Hemoglobin Concent Red Cell 18.9 H Distribution Width Platelet Count 328 Mean Platelet Volume 10.4 Immature 0.700 H Granulocytes % Neutrophils % 77.0 Lymphocytes % 9.8 L Monocytes % 10.6 Eosinophils % 1.6 Basophils % 0.3 Nucleated Red Blood 0.0 Cells % Immature 0.080 H Granulocytes # Neutrophils # 8.8 H Lymphocytes # 1.1 Monocytes # 1.2 H Eosinophils # 0.2 Basophils # 0.0 Nucleated Red Blood 0.0 Cells # Activated 83.9 *H Partial Thromboplast Time Sodium Level 135 Potassium Level 3.8 Chloride Level 101 Carbon Dioxide Level 22 Anion Gap 12 Blood Urea Nitrogen 12 Creatinine 1.00 Est Glomerular Filtrat Rate mL/min Glucose Level 221 H Calcium Level 9.2 Bedside Glucose 182 170 165 Subjective 24 Hr Interval Summary Constitutional: no complaints Exam/Review of Systems Exam Vitals Vital Signs Date Temp Pulse Resp B/P (MAP) Pulse Ox O2 O2 Flow FiO2 Time Delivery Rate 09/17/18 110 12:00 09/17/18 98.2 19 121/56 95 11:29 (77) 09/16/18 Nasal 3.0 20:00 Cannula Intake and Output 09/16/18 09/16/18 09/17/18 1515:00 23:00 07:00 IntakeIntake Total 351.5 ml BalanceBalance 351.5 ml Constitutional: alert, oriented Respiratory: clear to auscultation Cardiovascular: regular rate and rhythm Gastrointestinal: soft; No distended Musculoskeletal: nl extremities to inspection Results Results 24hrs Laboratory Tests Test 09/16/18 17:14 09/16/18 17:33 09/16/18 20:55 09/16/18 22:12 Activated 33.7 71.2 *H Partial Thromboplast Time Iron Level 36 Total Iron Binding 341 Capacity Percent Iron 11 L Saturation Ferritin 299.0 H Bedside Glucose 118 197 Test 09/17/18 05:36 09/17/18 07:51 09/17/18 09:08 09/17/18 12:01 White Blood Count 11.4 H Red Blood Count 4.68 L Hemoglobin 10.2 L Hematocrit 33.0 L Mean Corpuscular 70.5 L Volume Mean Corpuscular 21.8 L Hemoglobin Mean Corpuscular 30.9 L Hemoglobin Concent Red Cell 18.9 H Distribution Width Platelet Count 328 Mean Platelet Volume 10.4 Immature 0.700 H Granulocytes % Neutrophils % 77.0 Lymphocytes % 9.8 L Monocytes % 10.6 Eosinophils % 1.6 Basophils % 0.3 Nucleated Red Blood 0.0 Cells % Immature 0.080 H Granulocytes # Neutrophils # 8.8 H Lymphocytes # 1.1 Monocytes # 1.2 H Eosinophils # 0.2 Basophils # 0.0 Nucleated Red Blood 0.0 Cells # Activated 83.9 *H Partial Thromboplast Time Sodium Level 135 Potassium Level 3.8 Chloride Level 101 Carbon Dioxide Level 22 Anion Gap 12 Blood Urea Nitrogen 12 Creatinine 1.00 Est Glomerular Filtrat Rate mL/min Glucose Level 221 H Calcium Level 9.2 Bedside Glucose 182 170 165 Medications Medication Current Medications IV Flush (NS 3 ml) 3 ml PER PROTOCOL IV ; Start 09/15/18 at 00:30 Lorazepam (Ativan) 0.5 mg Q8H PRN PO .ANXIETY; Start 09/15/18 at 00:30 Ondansetron HCl (Zofran Inj) 4 mg Q6H PRN IV NAUSEA/VOMITING; Start 09/15/18 at 00:30 Acetaminophen (Tylenol Tab) 650 mg Q6H PRN PO .PAIN 1-3 OR TEMP; Start 09/15/18 at 00:30 Hydromorphone HCl (Dilaudid) 0.5 mg Q4H PRN IV .PAIN 7-10 Last administered on 09/17/18at 14:10; Admin Dose 0.5 MG; Start 09/15/18 at 00:30 Docusate Sodium (Colace) 100 mg Q12H PRN PO .CONSTIPATION; Start 09/15/18 at 00:30 Bisacodyl (Dulcolax) 5 mg DAILY PRN PO .CONSTIPATION; Start 09/15/18 at 00:30 Amlodipine Besylate (Norvasc) 10 mg DAILY PO Last administered on 09/17/18 09:10; Admin Dose 10 MG; Start 09/15/18 at 09:00 Famotidine (Pepcid) 40 mg DAILY PO Last administered on 09/17/18at 09:10; Admin Dose 40 MG; Start 09/15/18 at 09:00 Tamsulosin HCl (Flomax) 0.4 mg QPM PO Last administered on 09/16/18at 20:59; Admin Dose 0.4 MG; Start 09/15/18 at 21:00 Insulin Glargine (Lantus) 10 units DAILY@2000 SC Last administered on 09/16/18at 21:03; Admin Dose 10 UNITS; Start 09/15/18 at 20:00 Insulin Aspart (Novolog Insulin Pen) 3 unit WITH MEALS SC Last administered on 09/17/18at 12:14; Admin Dose 3 UNIT; Start 09/15/18 at 17:55 Insulin Aspart (Novolog Insulin Pen) NOVOLOG *MILD* ALGORITHM WITH MEALS BEDTIME SC Last administered on 09/17/18at 12:14; Admin Dose 1 UNIT; Start 09/15/18 at 17:55 Miscellaneous Information 1 ea NOTE XX ; Start 09/15/18 at 14:00 Glucose (Glutose) 15 gm Q15M PRN PO DECREASED GLUCOSE; Start 09/15/18 at 14:00 Glucose (Glutose) 22.5 gm Q15M PRN PO DECREASED GLUCOSE; Start 09/15/18 at 1 4:00 Dextrose (D50w Syringe) 25 ml Q15M PRN IV DECREASED GLUCOSE; Start 09/15/18 at 14:00 Dextrose (D50w Syringe) 50 ml Q15M PRN IV DECREASED GLUCOSE; Start 09/15/18 at 14:00 Glucagon (Glucagen) 1 mg Q15M PRN IM DECREASED GLUCOSE; Start 09/15/18 at 14:00 Glucose (Glutose) 15 gm Q15M PRN BUCCAL DECREASED GLUCOSE; Start 09/15/18 at 14:00 Apixaban (Eliquis) 5 mg BID PO ; Start 09/24/18 at 21:00 Apixaban (Eliquis) 10 mg BID PO ; Start 09/17/18 at 21:00; Stop 09/24/18 at 09:01 MODE DAWSON Sep 17, 2018 14:57
--- NOTE | 2018-09-17 17:45 | PN ---
Date/Time of Note Date/Time of Note DATE: 09/17/18 TIME: 17:42 Assessment/Plan VTE Prophylaxis Risk score (from Nsg)>0 risk: 7 Pharmacological prophylaxis: other (scds) Lines/Catheters IV Catheter Type (from Nrsg): Peripheral IV Urinary Cath still in place: No Assessment/Plan Hospital Course Assessment/Plan Epigastric abdominal pain - 2/2 to pancreatitis, possibly due to gallstone pancreatitis vs pancreatic cancer Metastatic pancreatic cancer with liver metastasis Pulmonary embolism evidence as evidence on CT HTN - stable on current medications, continue to monitor Anemia - stable Plan: pathology pending from liver bx Await input from medical/oncology monitor H and H, transfuse as needed to keep Hgb <7 A/I panel- neg Continue GI ppx with H2 justina The patient was seen in collaboration with Dr. Pratt/Juan Subjective: Course reviewed with nursing staff Patient interviewed and examined All labs, imaging and other results reviewed No over night events, Pt les diet ok, no c/o abd pain with food No c/o n/v. Pt has not had a BM in several days, however was previously NPO Will add Miralax to current regimen. Constitutional: alert, oriented Psych: no complaints; No nl mood/affect, No anxiety, No confusion, No depression, No suicidal, No other Head: normocephalic, atraumatic Eyes: nl conjunctiva; No EOMI, No nl lids, No nl sclera, No PERRL, No icteric, No fundi, disc, No other ENMT: No nl external ears & nose, No nl lips & teeth, No nl nasal mucosa & septum, No mucosa pink and moist, No intubated, No tympanic membranes, No other Gastrointestinal: soft, bowel sounds, tender (moderate upper quadrant abdominal pain to palpation) Genitourinary - Male: No nl penis, No nl scrotum, No CVA tenderness, No discharge, No other Musculoskeletal: No nl extremities to inspection, No nl gait and stance, No joint tenderness, No muscle tone, No muscle weakness, No range of motion, No spine non-tender, No swelling, No other Extremities: No normal pulses, No calf tenderness, No cyanosis, No clubbing, No edema, No pitting pedal edema, No palpable cord, No tenderness, No other Result Diagram: [id number]/17/1853509/[id number]/1836 Results 24hrs Laboratory Tests Test 09/16/18 20:55 09/16/18 22:12 09/17/18 05:36 09/17/18 07:51 Bedside Glucose 197 182 Activated 71.2 *H 83.9 *H Partial Thromboplast Time White Blood Count 11.4 H Red Blood Count 4.68 L Hemoglobin 10.2 L Hematocrit 33.0 L Mean Corpuscular 70.5 L Volume Mean Corpuscular 21.8 L Hemoglobin Mean Corpuscular 30.9 L Hemoglobin Concent Red Cell 18.9 H Distribution Width Platelet Count 328 Mean Platelet Volume 10.4 Immature 0.700 H Granulocytes % Neutrophils % 77.0 Lymphocytes % 9.8 L Monocytes % 10.6 Eosinophils % 1.6 Basophils % 0.3 Nucleated Red Blood 0.0 Cells % Immature 0.080 H Granulocytes # Neutrophils # 8.8 H Lymphocytes # 1.1 Monocytes # 1.2 H Eosinophils # 0.2 Basophils # 0.0 Nucleated Red Blood 0.0 Cells # Sodium Level 135 Potassium Level 3.8 Chloride Level 101 Carbon Dioxide Level 22 Anion Gap 12 Blood Urea Nitrogen 12 Creatinine 1.00 Est Glomerular Filtrat Rate mL/min Glucose Level 221 H Calcium Level 9.2 Test 09/17/18 09:08 09/17/18 12:01 Bedside Glucose 170 165 Exam/Review of Systems Exam Vitals Vital Signs Date Temp Pulse Resp B/P (MAP) Pulse Ox O2 O2 Flow FiO2 Time Delivery Rate 09/17/18 113 16:00 09/17/18 97.9 19 124/61 96 15:19 (82) 09/16/18 Nasal 3.0 20:00 Cannula Intake and Output 09/16/18 09/16/18 09/17/18 1515:00 23:00 07:00 IntakeIntake Total 351.5 ml BalanceBalance 351.5 ml Results Results 24hrs Laboratory Tests Test 09/16/18 20:55 09/16/18 22:12 09/17/18 05:36 09/17/18 07:51 Bedside Glucose 197 182 Activated 71.2 *H 83.9 *H Partial Thromboplast Time White Blood Count 11.4 H Red Blood Count 4.68 L Hemoglobin 10.2 L Hematocrit 33.0 L Mean Corpuscular 70.5 L Volume Mean Corpuscular 21.8 L Hemoglobin Mean Corpuscular 30.9 L Hemoglobin Concent Red Cell 18.9 H Distribution Width Platelet Count 328 Mean Platelet Volume 10.4 Immature 0.700 H Granulocytes % Neutrophils % 77.0 Lymphocytes % 9.8 L Monocytes % 10.6 Eosinophils % 1.6 Basophils % 0.3 Nucleated Red Blood 0.0 Cells % Immature 0.080 H Granulocytes # Neutrophils # 8.8 H Lymphocytes # 1.1 Monocytes # 1.2 H Eosinophils # 0.2 Basophils # 0.0 Nucleated Red Blood 0.0 Cells # Sodium Level 135 Potassium Level 3.8 Chloride Level 101 Carbon Dioxide Level 22 Anion Gap 12 Blood Urea Nitrogen 12 Creatinine 1.00 Est Glomerular Filtrat Rate mL/min Glucose Level 221 H Calcium Level 9.2 Test 09/17/18 09:08 09/17/18 12:01 Bedside Glucose 170 165 Medications Medication Current Medications IV Flush (NS 3 ml) 3 ml PER PROTOCOL IV ; Start 09/15/18 at 00:30 Lorazepam (Ativan) 0.5 mg Q8H PRN PO .ANXIETY; Start 09/15/18 at 00:30 Ondansetron HCl (Zofran Inj) 4 mg Q6H PRN IV NAUSEA/VOMITING; Start 09/15/18 at 00:30 Acetaminophen (Tylenol Tab) 650 mg Q6H PRN PO .PAIN 1-3 OR TEMP; Start 09/15/18 at 00:30 Hydromorphone HCl (Dilaudid) 0.5 mg Q4H PRN IV .PAIN 7-10 Last administered on 09/17/18at 14:10; Admin Dose 0.5 MG; Start 09/15/18 at 00:30 Docusate Sodium (Colace) 100 mg Q12H PRN PO .CONSTIPATION; Start 09/15/18 at 00:30 Bisacodyl (Dulcolax) 5 mg DAILY PRN PO .CONSTIPATION; Start 09/15/18 at 00:30 Amlodipine Besylate (Norvasc) 10 mg DAILY PO Last administered on 09/17/18at 09:10; Admin Dose 10 MG; Start 09/15/18 at 09:00 Famotidine (Pepcid) 40 mg DAILY PO Last administered on 09/17/18at 09:10; Admin Dose 40 MG; Start 09/15/18 at 09:00 Tamsulosin HCl (Flomax) 0.4 mg QPM PO Last administered on 09/16/18at 20:59; Admin Dose 0.4 MG; Start 09/15/18 at 21:00 Insulin Aspart (Novolog Insulin Pen) NOVOLOG *MILD* ALGORITHM WITH MEALS BEDTIME SC Last administered on 09/17/18at 12:14; Admin Dose 1 UNIT; Start 09/15/18 at 17:55 Miscellaneous Information 1 ea NOTE XX ; Start 09/15/18 at 14:00 Glucose (Glutose) 15 gm Q15M PRN PO DECREASED GLUCOSE; Start 09/15/18 at 14:00 Glucose (Glutose) 22.5 gm Q15M PRN PO DECREASED GLUCOSE; Start 09/15/18 at 14:00 Dextrose (D50w Syringe) 25 ml Q15M PRN IV DECREASED GLUCOSE; Start 09/15/18 at 14:00 Dextrose (D50w Syringe) 50 ml Q15M PRN IV DECREASED GLUCOSE; Start 09/15/18 at 14:00 Glucagon (Glucagen) 1 mg Q15M PRN IM DECREASED GLUCOSE; Start 09/15/18 at 14:00 Glucose (Glutose) 15 gm Q15M PRN BUCCAL DECREASED GLUCOSE; Start 09/15/18 at 14:00 Apixaban (Eliquis) 5 mg BID PO ; Start 09/24/18 at 21:00 Apixaban (Eliquis) 10 mg BID PO ; Start 09/17/18 at 21:00; Stop 09/24/18 at 09:01 Insulin Aspart (Novolog Insulin Pen) 4 unit WITH MEALS SC ; Start 09/17/18 at 17:55 Insulin Glargine (Lantus) 12 units DAILY@2000 SC ; Start 09/17/18 at 20:00 JEISON ARREAGA Sep 17, 2018 17:45
[2018-09-17] MEDS: INSULIN GLARGINE [LANTus] (100 UNITS/ML) SYG SC SCH (21:10)
[2018-09-17] MEDS: TAMSULOSIN (SR) 0.4 MG CAP PO SCH (21:12)
[2018-09-17] MEDS: APIXABAN 5 MG TABLET PO SCH (21:12)
[2018-09-18] VITALS (12 sets, daily range): BP systolic 118–141; BP diastolic 60–70; PULSE 107–134; RESP 16–22
[2018-09-18] MEDS: HYDROmorphONE 0.5 MG/0.5 ML SYG IV PRN ×4 (01:01→23:00)
[2018-09-18] MEDS: INSULIN ASPART [NOVOLOG] 3 ML PEN SC SCH ×7 (08:07→20:47)
[2018-09-18] MEDS ORDERED: APIXABAN 5 MG TABLET PO SCH (09:00)
[2018-09-18] MEDS ORDERED: POLYETHYLENE GLYCOL 17 GM PACKET PO SCH (09:00)
[2018-09-18] MEDS: FAMOTIDINE 20 MG TAB PO SCH (09:03)
[2018-09-18] MEDS: AMLODIPINE 10 MG TAB PO SCH (09:03)
[2018-09-18] MEDS: APIXABAN 5 MG TABLET PO SCH ×2 (09:04→20:50)
--- NOTE | 2018-09-18 11:44 | CONS ---
Assessment/Plan Assessment/Plan Hospital Course (Demo Recall) Pleasant 78 yo with abdominal discomfort presented to ER, scans show pancreatic and liver masses #pancreatic mass and liver masses path c/w met pancreatic ca CK7: Positive CK20: Weakly positive TTF-1: Negative CDX2: Negative CK17: Positive CK18: Positive CA19.9: Positive MICROSCOPIC DIAGNOSIS: Liver, mass, biopsy: -- Metastatic adenocarcinoma, compatible with pancreatobiliary primary. typically stage IV pancreatic is treated with multiagent chemo such as FOLFIRINOX or Gemcitabine + abraxane unfortunately even with aggressive chemo, stage IV pancreatic has grim prognosis discussed with son and son-in-law (who is a surgeon) about diagnosis. They understand that prognosis is bad. Explained chemo options, FOLFIRINOX (3 drug regimen is quite toxic and has about 35% response rate), gem+abraxane about 25% RR and gemcitabine single agent about 10% response rate. I would not recommend FOLFIRINOX. at this point family wants to talk things over but are leaning towards hospice, likely has less than 6 mos. they will let me know once they decide chemo would not be given in the hospital, it is an outpt regimen # PE will need indefinite anticoagulation due to underlying malignancy # microcytic anemia iron studies c/w anemia of chronic disease and chronic inflammation elevated ferritin Consultation Date/Type/Reason Admit Date/Time Sep 14, 2018 at 22:54 Initial Consult Date 09/15/18 Requesting Provider: LIZETTE YUAN Date/Time of Note DATE: 09/18/18 TIME: 11:41 24 HR Interval Summary Free Text/Dictation s/p liver biopsy on 09/16/18 path consistent with pancreatica ca: CK7: Positive CK20: Weakly positive TTF-1: Negative CDX2: Negative CK17: Positive CK18: Positive CA19.9: Positive MICROSCOPIC DIAGNOSIS: Liver, mass, biopsy: -- Metastatic adenocarcinoma, compatible with pancreatobiliary primary. Exam/Review of Systems Exam Vitals Vital Signs Date Temp Pulse Resp B/P (MAP) Pulse Ox O2 O2 Flow FiO2 Time Delivery Rate 09/18/18 98.0 110 16 124/60 93 11:31 (81) 09/18/18 Room Air 11:13 09/16/18 3.0 20:00 Intake and Output 09/17/18 09/17/18 09/18/18 1515:00 23:00 07:00 IntakeIntake Total 65 ml 350 ml BalanceBalance 65 ml 350 ml Constitutional: alert Psych: no complaints, nl mood/affect Head: normocephalic, atraumatic Eyes: nl conjunctiva, EOMI, nl lids, nl sclera, PERRL Musculoskeletal: nl extremities to inspection, nl gait and stance Results Result Diagram: 09/18/18 0542 09/18/18 0542 Results 24hrs Laboratory Tests Test 09/17/18 12:01 09/17/18 18:15 09/17/18 20:59 09/18/18 05:42 Bedside Glucose 165 198 164 White Blood Count 10.6 Red Blood Count 4.87 Hemoglobin 10.6 L Hematocrit 33.9 L Mean Corpuscular 69.6 L Volume Mean Corpuscular 21.8 L Hemoglobin Mean Corpuscular 31.3 L Hemoglobin Concent Red Cell 19.2 H Distribution Width Platelet Count 269 Mean Platelet Volume 9.8 Immature 0.800 H Granulocytes % Neutrophils % 76.3 Lymphocytes % 10.1 L Monocytes % 10.2 Eosinophils % 2.4 Basophils % 0.2 Nucleated Red Blood 0.0 Cells % Immature 0.080 H Granulocytes # Neutrophils # 8.1 H Lymphocytes # 1.1 Monocytes # 1.1 H Eosinophils # 0.3 Basophils # 0.0 Nucleated Red Blood 0.0 Cells # Activated 30.4 Partial Thromboplast Time Sodium Level 134 L Potassium Level 3.6 Chloride Level 98 Carbon Dioxide Level 23 Anion Gap 13 Blood Urea Nitrogen 10 Creatinine 0.93 Est Glomerular Filtrat Rate mL/min Glucose Level 145 # Hemoglobin A1c 7.7 H Calcium Level 9.1 Amylase Level 270 H Lipase 2324 H Test 09/18/18 08:00 Bedside Glucose 153 Medications Medication Current Medications IV Flush (NS 3 ml) 3 ml PER PROTOCOL IV ; Start 09/15/18 at 00:30 Lorazepam (Ativan) 0.5 mg Q8H PRN PO .ANXIETY; Start 09/15/18 at 00:30 Ondansetron HCl (Zofran Inj) 4 mg Q6H PRN IV NAUSEA/VOMITING; Start 09/15/18 at 00:30 Acetaminophen (Tylenol Tab) 650 mg Q6H PRN PO .PAIN 1-3 OR TEMP; Start 09/15/18 at 00:30 Hydromorphone HCl (Dilaudid) 0.5 mg Q4H PRN IV .PAIN 7-10 Last administered on 09/18/18at 11:08; Admin Dose 0.5 MG; Start 09/15/18 at 00:30 Docusate Sodium (Colace) 100 mg Q12H PRN PO .CONSTIPATION; Start 09/15/18 at 00:30 Bisacodyl (Dulcolax) 5 mg DAILY PRN PO .CONSTIPATION; Start 09/15/18 at 00:30 Amlodipine Besylate (Norvasc) 10 mg DAILY PO Last administered on 09/18/18at 09:03; Admin Dose 10 MG; Start 09/15/18 at 09:00 Famotidine (Pepcid) 40 mg DAILY PO Last administered on 09/18/18at 09:03; Admin Dose 40 MG; Start 09/15/18 at 09:00 Tamsulosin HCl (Flomax) 0.4 mg QPM PO Last administered on 09/17/18at 21:12; Admin Dose 0.4 MG; Start 09/15/18 at 21:00 Insulin Aspart (Novolog Insulin Pen) NOVOLOG *MILD* ALGORITHM WITH MEALS BEDTIME SC Last administered on 09/18/18at 08:07; Admin Dose 1 UNIT; Start 09/15/18 at 17:55 Miscellaneous Information 1 ea NOTE XX ; Start 09/15/18 at 14:00 Glucose (Glutose) 15 gm Q15M PRN PO DECREASED GLUCOSE; Start 09/15/18 at 14:00 Glucose (Glutose) 22.5 gm Q15M PRN PO DECREASED GLUCOSE; Start 09/15/18 at 14:00 Dextrose (D50w Syringe) 25 ml Q15M PRN IV DECREASED GLUCOSE; Start 09/15/18 at 14:00 Dextrose (D50w Syringe) 50 ml Q15M PRN IV DECREASED GLUCOSE; Start 09/15/18 at 14:00 Glucagon (Glucagen) 1 mg Q15M PRN IM DECREASED GLUCOSE; Start 09/15/18 at 14:00 Glucose (Glutose) 15 gm Q15M PRN BUCCAL DECREASED GLUCOSE; Start 09/15/18 at 14:00 Apixaban (Eliquis) 5 mg BID PO ; Start 2/19/19 at 21:00 Apixaban (Eliquis) 10 mg BID PO Last administered on 09/18/18 09:04; Admin Dose 10 MG; Start 09/17/18 at 21:00; Stop 09/24/18 at 09:01 Insulin Aspart (Novolog Insulin Pen) 4 unit WITH MEALS SC Last administered on 09/18/18 08:07; Admin Dose 4 UNIT; Start 09/17/18 at 17:55 Insulin Glargine (Lantus) 12 units DAILY@2000 SC Last administered on 09/17/18at 21:10; Admin Dose 12 UNITS; Start 09/17/18 at 20:00 Polyethylene Glycol (Miralax) 17 gm DAILY PO Last administered on 09/18/18 09:03; Admin Dose 17 GM; Start 09/18/18 at 09:00 MOSES STANLEY Sep 18, 2018 11:44
--- NOTE | 2018-09-18 16:33 | PN ---
Date/Time of Note Date/Time of Note DATE: 09/18/18 TIME: 16:30 Assessment/Plan VTE Prophylaxis Risk score (from Nsg)>0 risk: 4 Pharmacological prophylaxis: apixaban Lines/Catheters IV Catheter Type (from Nrsg): Saline Lock Assessment/Plan Hospital Course 78 yo male with DMII and HTN who presented with abdominal pain and found to have pancreatic mass with multiple liver lesions consistent with likely metastatic pancreatic cancer. 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 -Oncology consultation appreciated, follow-up with recommendations - Pain control PE: -Status post heparin drip, transitioned to Eliquis Epistaxis secondary to heparin-resolved -Status post heparin, transition to Eliquis DMII: - Basal/bolus Prophylaxis: Eliquis DC planning: Follow-up on oncology recommendations for chemotherapy, anticipate DC home tomorrow if plan is for outpatient chemotherapy Result Diagram: 09/18/18 0542 09/18/18 0542 Results 24hrs Laboratory Tests Test 09/17/18 18:15 09/17/18 20:59 09/18/18 05:42 09/18/18 08:00 Bedside Glucose 198 164 153 White Blood Count 10.6 Red Blood Count 4.87 Hemoglobin 10.6 L Hematocrit 33.9 L Mean Corpuscular 69.6 L Volume Mean Corpuscular 21.8 L Hemoglobin Mean Corpuscular 31.3 L Hemoglobin Concent Red Cell 19.2 H Distribution Width Platelet Count 269 Mean Platelet Volume 9.8 Immature 0.800 H Granulocytes % Neutrophils % 76.3 Lymphocytes % 10.1 L Monocytes % 10.2 Eosinophils % 2.4 Basophils % 0.2 Nucleated Red Blood 0.0 Cells % Immature 0.080 H Granulocytes # Neutrophils # 8.1 H Lymphocytes # 1.1 Monocytes # 1.1 H Eosinophils # 0.3 Basophils # 0.0 Nucleated Red Blood 0.0 Cells # Activated 30.4 Partial Thromboplast Time Sodium Level 134 L Potassium Level 3.6 Chloride Level 98 Carbon Dioxide Level 23 Anion Gap 13 Blood Urea Nitrogen 10 Creatinine 0.93 Est Glomerular Filtrat Rate mL/min Glucose Level 145 # Hemoglobin A1c 7.7 H Calcium Level 9.1 Amylase Level 270 H Lipase 2324 H Test 09/18/18 12:03 Bedside Glucose 185 Subjective 24 Hr Interval Summary Constitutional: no complaints Exam/Review of Systems Exam Vitals Vital Signs Date Temp Pulse Resp B/P (MAP) Pulse Ox O2 O2 Flow FiO2 Time Delivery Rate 09/18/18 134 16:19 09/18/18 98.7 17 128/66 96 15:12 (86) 09/18/18 Room Air 11:13 09/16/18 3.0 20:00 Intake and Output 09/17/18 09/17/18 09/18/18 1515:00 23:00 07:00 IntakeIntake Total 65 ml 350 ml BalanceBalance 65 ml 350 ml Constitutional: alert Respiratory: clear to auscultation Cardiovascular: regular rate and rhythm Gastrointestinal: soft; No distended Musculoskeletal: nl extremities to inspection Results Results 24hrs Laboratory Tests Test 09/17/18 18:15 09/17/18 20:59 09/18/18 05:42 09/18/18 08:00 Bedside Glucose 198 164 153 White Blood Count 10.6 Red Blood Count 4.87 Hemoglobin 10.6 L Hematocrit 33.9 L Mean Corpuscular 69.6 L Volume Mean Corpuscular 21.8 L Hemoglobin Mean Corpuscular 31.3 L Hemoglobin Concent Red Cell 19.2 H Distribution Width Platelet Count 269 Mean Platelet Volume 9.8 Immature 0.800 H Granulocytes % Neutrophils % 76.3 Lymphocytes % 10.1 L Monocytes % 10.2 Eosinophils % 2.4 Basophils % 0.2 Nucleated Red Blood 0.0 Cells % Immature 0.080 H Granulocytes # Neutrophils # 8.1 H Lymphocytes # 1.1 Monocytes # 1.1 H Eosinophils # 0.3 Basophils # 0.0 Nucleated Red Blood 0.0 Cells # Activated 30.4 Partial Thromboplast Time Sodium Level 134 L Potassium Level 3.6 Chloride Level 98 Carbon Dioxide Level 23 Anion Gap 13 Blood Urea Nitrogen 10 Creatinine 0.93 Est Glomerular Filtrat Rate mL/min Glucose Level 145 # Hemoglobin A1c 7.7 H Calcium Level 9.1 Amylase Level 270 H Lipase 2324 H Test 09/18/18 12:03 Bedside Glucose 185 Medications Medication Current Medications IV Flush (NS 3 ml) 3 ml PER PROTOCOL IV ; Start 09/15/18 at 00:30 Lorazepam (Ativan) 0.5 mg Q8H PRN PO .ANXIETY; Start 09/15/18 at 00:30 Ondansetron HCl (Zofran Inj) 4 mg Q6H PRN IV NAUSEA/VOMITING; Start 09/15/18 at 00:30 Acetaminophen (Tylenol Tab) 650 mg Q6H PRN PO .PAIN 1-3 OR TEMP; Start 09/15/18 at 00:30 Hydromorphone HCl (Dilaudid) 0.5 mg Q4H PRN IV .PAIN 7-10 Last administered on 09/18/18at 11:08; Admin Dose 0.5 MG; Start 09/15/18 at 00:30 Docusate Sodium (Colace) 100 mg Q12H PRN PO .CONSTIPATION; Start 09/15/18 at 00:30 Bisacodyl (Dulcolax) 5 mg DAILY PRN PO .CONSTIPATION; Start 09/15/18 at 00:30 Amlodipine Besylate (Norvasc) 10 mg DAILY PO Last administered on 09/18/18at 09:03; Admin Dose 10 MG; Start 09/15/18 at 09:00 Famotidine (Pepcid) 40 mg DAILY PO Last administered on 09/18/18at 09:03; Admin Dose 40 MG; Start 09/15/18 at 09:00 Tamsulosin HCl (Flomax) 0.4 mg QPM PO Last administered on 09/17/18at 21:12; Admin Dose 0.4 MG; Start 09/15/18 at 21:00 Insulin Aspart (Novolog Insulin Pen) NOVOLOG *MILD* ALGORITHM WITH MEALS BEDTIME SC Last administered on 09/18/18at 12:07; Admin Dose 2 UNIT; Start 09/15/18 at 17:55 Miscellaneous Information 1 ea NOTE XX ; Start 09/15/18 at 14:00 Glucose (Glutose) 15 gm Q15M PRN PO DECREASED GLUCOSE; Start 09/15/18 at 14:00 Glucose (Glutose) 22.5 gm Q15M PRN PO DECREASED GLUCOSE; Start 09/15/18 at 14:00 Dextrose (D50w Syringe) 25 ml Q15M PRN IV DECREASED GLUCOSE; Start 09/15/18 at 14:00 Dextrose (D50w Syringe) 50 ml Q15M PRN IV DECREASED GLUCOSE; Start 09/15/18 at 14:00 Glucagon (Glucagen) 1 mg Q15M PRN IM DECREASED GLUCOSE; Start 09/15/18 at 14:00 Glucose (Glutose) 15 gm Q15M PRN BUCCAL DECREASED GLUCOSE; Start 09/15/18 at 14:00 Apixaban (Eliquis) 5 mg BID PO ; Start 09/24/18 at 21:00 Apixaban (Eliquis) 10 mg BID PO Last administered on 09/18/18at 09:04; Admin Dose 10 MG; Start 09/17/18 at 21:00; Stop 09/24/18 at 09:01 Insulin Aspart (Novolog Insulin Pen) 4 unit WITH MEALS SC Last administered on 09/18/18at 12:07; Admin Dose 4 UNIT; Start 09/17/18 at 17:55 Insulin Glargine (Lantus) 12 units DAILY@2000 SC Last administered on 09/17/18at 21:10; Admin Dose 12 UNITS; Start 09/17/18 at 20:00 Polyethylene Glycol (Miralax) 17 gm DAILY PO Last administered on 09/18/18at 09:03; Admin Dose 17 GM; Start 09/18/18 at 09:00 MODE DAWSON Sep 18, 2018 16:33
--- NOTE | 2018-09-18 16:42 | PN ---
Date/Time of Note Date/Time of Note DATE: 09/18/18 TIME: 16:39 Assessment/Plan VTE Prophylaxis Risk score (from Nsg)>0 risk: 4 Pharmacological prophylaxis: other (scds) Lines/Catheters IV Catheter Type (from Nrsg): [place] Assessment/Plan Hospital Course Assessment/Plan Epigastric abdominal pain - 2/2 to pancreatitis, possibly due to gallstone pancreatitis vs pancreatic cancer - Liver, mass, biopsy: Metastatic adenocarcinoma, compatible with pancreatobiliary primary. Metastatic pancreatic cancer with liver metastasis Pulmonary embolism evidence as evidence on CT HTN - stable on current medications, continue to monitor Anemia - stable Constipation- Plan: Defer management to Oncology Pt c/o constipation will increase MiraLAX to BID- Utilize PRN medication Additionaly pt c/o increased GERD sx- will change H2 justina to PPI The patient was seen in collaboration with Dr. Pratt/Juan Subjective: Course reviewed with nursing staff Patient interviewed and examined All labs, imaging and other results reviewed Pt resting in bed, with family at bedside. c/p upper abd pain pancreatic mass vs constipation Constitutional: alert, oriented Psych: no complaints; No nl mood/affect, No anxiety, No confusion, No depression, No suicidal, No other Head: normocephalic, atraumatic Eyes: nl conjunctiva; No EOMI, No nl lids, No nl sclera, No PERRL, No icteric, No fundi, disc, No other ENMT: No nl external ears & nose, No nl lips & teeth, No nl nasal mucosa & septum, No mucosa pink and moist, No intubated, No tympanic membranes, No other Gastrointestinal: soft, bowel sounds, tender (moderate upper quadrant abdominal pain to palpation) Genitourinary - Male: No nl penis, No nl scrotum, No CVA tenderness, No discharge, No other Musculoskeletal: No nl extremities to inspection, No nl gait and stance, No joint tenderness, No muscle tone, No muscle weakness, No range of motion, No spine non-tender, No swelling, No other Extremities: No normal pulses, No calf tenderness, No cyanosis, No clubbing, No edema, No pitting pedal edema, No palpable cord, No tenderness, No other Result Diagram: 09/18/18 0542 09/18/18 0542 Results 24hrs Laboratory Tests Test 09/17/18 18:15 09/17/18 20:59 09/18/18 05:42 09/18/18 08:00 Bedside Glucose 198 164 153 White Blood Count 10.6 Red Blood Count 4.87 Hemoglobin 10.6 L Hematocrit 33.9 L Mean Corpuscular 69.6 L Volume Mean Corpuscular 21.8 L Hemoglobin Mean Corpuscular 31.3 L Hemoglobin Concent Red Cell 19.2 H Distribution Width Platelet Count 269 Mean Platelet Volume 9.8 Immature 0.800 H Granulocytes % Neutrophils % 76.3 Lymphocytes % 10.1 L Monocytes % 10.2 Eosinophils % 2.4 Basophils % 0.2 Nucleated Red Blood 0.0 Cells % Immature 0.080 H Granulocytes # Neutrophils # 8.1 H Lymphocytes # 1.1 Monocytes # 1.1 H Eosinophils # 0.3 Basophils # 0.0 Nucleated Red Blood 0.0 Cells # Activated 30.4 Partial Thromboplast Time Sodium Level 134 L Potassium Level 3.6 Chloride Level 98 Carbon Dioxide Level 23 Anion Gap 13 Blood Urea Nitrogen 10 Creatinine 0.93 Est Glomerular Filtrat Rate mL/min Glucose Level 145 # Hemoglobin A1c 7.7 H Calcium Level 9.1 Amylase Level 270 H Lipase 2324 H Test 09/18/18 12:03 Bedside Glucose 185 Exam/Review of Systems Exam Vitals Vital Signs Date Temp Pulse Resp B/P (MAP) Pulse Ox O2 O2 Flow FiO2 Time Delivery Rate 09/18/18 134 16:19 09/18/18 98.7 17 128/66 96 15:12 (86) 09/18/18 Room Air 11:13 09/16/18 3.0 20:00 Intake and Output 09/17/18 09/17/18 09/18/18 1515:00 23:00 07:00 IntakeIntake Total 65 ml 350 ml BalanceBalance 65 ml 350 ml Results Results 24hrs Laboratory Tests Test 09/17/18 18:15 09/17/18 20:59 09/18/18 05:42 09/18/18 08:00 Bedside Glucose 198 164 153 White Blood Count 10.6 Red Blood Count 4.87 Hemoglobin 10.6 L Hematocrit 33.9 L Mean Corpuscular 69.6 L Volume Mean Corpuscular 21.8 L Hemoglobin Mean Corpuscular 31.3 L Hemoglobin Concent Red Cell 19.2 H Distribution Width Platelet Count 269 Mean Platelet Volume 9.8 Immature 0.800 H Granulocytes % Neutrophils % 76.3 Lymphocytes % 10.1 L Monocytes % 10.2 Eosinophils % 2.4 Basophils % 0.2 Nucleated Red Blood 0.0 Cells % Immature 0.080 H Granulocytes # Neutrophils # 8.1 H Lymphocytes # 1.1 Monocytes # 1.1 H Eosinophils # 0.3 Basophils # 0.0 Nucleated Red Blood 0.0 Cells # Activated 30.4 Partial Thromboplast Time Sodium Level 134 L Potassium Level 3.6 Chloride Level 98 Carbon Dioxide Level 23 Anion Gap 13 Blood Urea Nitrogen 10 Creatinine 0.93 Est Glomerular Filtrat Rate mL/min Glucose Level 145 # Hemoglobin A1c 7.7 H Calcium Level 9.1 Amylase Level 270 H Lipase 2324 H Test 09/18/18 12:03 Bedside Glucose 185 Medications Medication Current Medications IV Flush (NS 3 ml) 3 ml PER PROTOCOL IV ; Start 09/15/18 at 00:30 Lorazepam (Ativan) 0.5 mg Q8H PRN PO .ANXIETY; Start 09/15/18 at 00:30 Ondansetron HCl (Zofran Inj) 4 mg Q6H PRN IV NAUSEA/VOMITING; Start 09/15/18 at 00:30 Acetaminophen (Tylenol Tab) 650 mg Q6H PRN PO .PAIN 1-3 OR TEMP; Start 09/15/18 at 00:30 Hydromorphone HCl (Dilaudid) 0.5 mg Q4H PRN IV .PAIN 7-10 Last administered on 09/18/18at 11:08; Admin Dose 0.5 MG; Start 09/15/18 at 00:30 Docusate Sodium (Colace) 100 mg Q12H PRN PO .CONSTIPATION; Start 09/15/18 at 00:30 Bisacodyl (Dulcolax) 5 mg DAILY PRN PO .CONSTIPATION; Start 09/15/18 at 00:30 Amlodipine Besylate (Norvasc) 10 mg DAILY PO Last administered on 09/18/18at 09:03; Admin Dose 10 MG; Start 09/15/18 at 09:00 Famotidine (Pepcid) 40 mg DAILY PO Last administered on 09/18/18at 09:03; Admin Dose 40 MG; Start 09/15/18 at 09:00 Tamsulosin HCl (Flomax) 0.4 mg QPM PO Last administered on 09/17/18at 21:12; Admin Dose 0.4 MG; Start 09/15/18 at 21:00 Insulin Aspart (Novolog Insulin Pen) NOVOLOG *MILD* ALGORITHM WITH MEALS BEDTIME SC Last administered on 09/18/18at 12:07; Admin Dose 2 UNIT; Start 09/15/18 at 17:55 Miscellaneous Information 1 ea NOTE XX ; Start 09/15/18 at 14:00 Glucose (Glutose) 15 gm Q15M PRN PO DECREASED GLUCOSE; Start 09/15/18 at 14:00 Glucose (Glutose) 22.5 gm Q15M PRN PO DECREASED GLUCOSE; Start 09/15/18 at 14:00 Dextrose (D50w Syringe) 25 ml Q15M PRN IV DECREASED GLUCOSE; Start 09/15/18 at 14:00 Dextrose (D50w Syringe) 50 ml Q15M PRN IV DECREASED GLUCOSE; Start 09/15/18 at 14:00 Glucagon (Glucagen) 1 mg Q15M PRN IM DECREASED GLUCOSE; Start 09/15/18 at 14:00 Glucose (Glutose) 15 gm Q15M PRN BUCCAL DECREASED GLUCOSE; Start 09/15/18 at 14:00 Apixaban (Eliquis) 5 mg BID PO ; Start 09/24/18 at 21:00 Apixaban (Eliquis) 10 mg BID PO Last administered on 09/18/18at 09:04; Admin Dose 10 MG; Start 09/17/18 at 21:00; Stop 09/24/18 at 09:01 Insulin Aspart (Novolog Insulin Pen) 4 unit WITH MEALS SC Last administered on 09/18/18at 12:07; Admin Dose 4 UNIT; Start 09/17/18 at 17:55 Insulin Glargine (Lantus) 12 units DAILY@2000 SC Last administered on 09/17/18 21:10; Admin Dose 12 UNITS; Start 09/17/18 at 20:00 Polyethylene Glycol (Miralax) 17 gm DAILY PO Last administered on 09/18/18 09:03; Admin Dose 17 GM; Start 09/18/18 at 09:00 JEISON ARREAGA Sep 18, 2018 16:41
[2018-09-18] MEDS: BISACODYL (EC) 5 MG TAB PO PRN (17:04)
[2018-09-18] MEDS: TAMSULOSIN (SR) 0.4 MG CAP PO SCH (20:50)
[2018-09-18] MEDS: POLYETHYLENE GLYCOL 17 GM PACKET PO SCH (20:50)
[2018-09-18] MEDS: INSULIN GLARGINE [LANTus] (100 UNITS/ML) SYG SC SCH (21:01)
[2018-09-19] VITALS (11 sets, daily range): BP systolic 113–130; BP diastolic 56–71; PULSE 102–123; RESP 18–22
[2018-09-19] MEDS: LORAZEPAM 0.5 MG TAB PO PRN (00:01)
[2018-09-19] MEDS: HYDROmorphONE 0.5 MG/0.5 ML SYG IV PRN ×2 (03:54→22:45)
[2018-09-19] MEDS ORDERED: PANTOPRAZOLE 40 MG INJ IV SCH (06:00)
--- NOTE | 2018-09-19 07:43 | CONS ---
Assessment/Plan Assessment/Plan Assessment/Plan (Daily) Pleasant 78 yo with abdominal discomfort presented to ER, scans show pancreatic and liver masses #pancreatic mass and liver masses concerning for met pancreatica ca -SP Liver mass biopsy - metastatic adenocarcinoma compatible with pancreatobiliary - pathology consistent with pancreatic cancer CK7: Positive CK20: Weakly positive TTF-1: Negative CDX2: Negative CK17: Positive CK18: Positive CA19.9: Positive - stage IV pancreatic is treated with multiagent chemo such as FOLFIRINOX or Gemcitabine + abraxane - unfortunately even with aggressive chemo, stage IV pancreatic has grim prognosis # PE -will need indefinite anticoagulation due to underlying malignancy -heparin is stopped per PMD - will start on Eliquis 10 m po BID X 1 week; Eliquis 5mg PO BID thereafter # microcytic anemia- Hgb 10.2 - elevated ferritin - iron studies c/w anemia of chronic disease and chronic inflammation Dr Aggarwal has discussed with son and son-in-law (who is a surgeon) about diagnosis; prognosis ; and chemo options, FOLFIRINOX (3 drug regimen is quite toxic and has about 35% response rate), gem+abraxane about 25% RR and gemcitabine single agent about 10% response rate. Family now deciding about Hospice and will let us know when is final. chemo would not be given in the hospital, it is an outpatient regimen Patient seen in collaboration with Dr Boss Consultation Date/Type/Reason Admit Date/Time Sep 14, 2018 at 10:54 pm Initial Consult Date 09/15/18 Requesting Provider: LIZETTE YUAN Date/Time of Note DATE: 09/19/18 TIME: 07:43 24 HR Interval Summary Free Text/Dictation - lying in bed; resting - confused ; no agitation now - son at bed side- deciding for Hospice; will talk to rest of his family for Hospice for his father. - no new issues reported overnight Constitutional: requiring O2 Exam/Review of Systems Exam Vitals Vital Signs Date Temp Pulse Resp B/P (MAP) Pulse Ox O2 O2 Flow FiO2 Time Delivery Rate 09/19/18 98.3 111 19 117/57 96 04:00 (77) 09/18/18 Room Air 11:13 09/16/18 3.0 20:00 Intake and Output 09/18/18 09/18/18 09/19/18 1515:00 23:00 07:00 IntakeIntake Total 700 ml 50 ml BalanceBalance 700 ml 50 ml Constitutional: alert, well developed Psych: nl mood/affect Eyes: nl lids, nl sclera ENMT: nl external ears & nose Neck: non-tender Respiratory: diminished breath sounds (at bases bilaterally) Cardiovascular: nl pulses, other (s1s2) Gastrointestinal: soft, non-tender Musculoskeletal: muscle weakness Extremities: normal pulses Neurological: confused Lymph: nontender Results Result Diagram: 09/18/18 0542 09/18/1842 Results 24hrs Laboratory Tests Test 09/18/18 08:00 09/18/18 12:03 09/18/18 16:58 09/18/18 20:46 Bedside Glucose 153 185 166 142 Medications Medication Current Medications IV Flush (NS 3 ml) 3 ml PER PROTOCOL IV ; Start 09/15/18 at 00:30 Lorazepam (Ativan) 0.5 mg Q8H PRN PO .ANXIETY Last administered on 09/19/18at 00:01; Admin Dose 0.5 MG; Start 09/15/18 at 00:30 Ondansetron HCl (Zofran Inj) 4 mg Q6H PRN IV NAUSEA/VOMITING; Start 09/15/18 at 00:30 Acetaminophen (Tylenol Tab) 650 mg Q6H PRN PO .PAIN 1-3 OR TEMP; Start 09/15/18 at 00:30 Hydromorphone HCl (Dilaudid) 0.5 mg Q4H PRN IV .PAIN 7-10 Last administered on 09/19/18at 03:54; Admin Dose 0.5 MG; Start 09/15/18 at 00:30 Docusate Sodium (Colace) 100 mg Q12H PRN PO .CONSTIPATION; Start 09/15/18 at 00:30 Bisacodyl (Dulcolax) 5 mg DAILY PRN PO .CONSTIPATION Last administered on 09/18/18at 17:04; Admin Dose 5 MG; Start 09/15/18 at 00:30 Amlodipine Besylate (Norvasc) 10 mg DAILY PO Last administered on 09/18/18 09:03; Admin Dose 10 MG; Start 09/15/18 at 09:00 Tamsulosin HCl (Flomax) 0.4 mg QPM PO Last administered on 09/18/18at 20:50; Admin Dose 0.4 MG; Start 09/15/18 at 21:00 Insulin Aspart (Novolog Insulin Pen) NOVOLOG *MILD* ALGORITHM WITH MEALS BEDTIME SC Last administered on 09/18/18at 17:11; Admin Dose 1 UNIT; Start 09/15/18 at 17:55 Miscellaneous Information 1 ea NOTE XX ; Start 09/15/18 at 14:00 Glucose (Glutose) 15 gm Q15M PRN PO DECREASED GLUCOSE; Start 09/15/18 at 14:00 Glucose (Glutose) 22.5 gm Q15M PRN PO DECREASED GLUCOSE; Start 09/15/18 at 14:00 Dextrose (D50w Syringe) 25 ml Q15M PRN IV DECREASED GLUCOSE; Start 09/15/18 at 14:00 Dextrose (D50w Syringe) 50 ml Q15M PRN IV DECREASED GLUCOSE; Start 09/15/18 at 14:00 Glucagon (Glucagen) 1 mg Q15M PRN IM DECREASED GLUCOSE; Start 09/15/18 at 14:00 Glucose (Glutose) 15 gm Q15M PRN BUCCAL DECREASED GLUCOSE; Start 09/15/18 at 14:00 Apixaban (Eliquis) 5 mg BID PO ; Start 09/24/18 at 21:00 Apixaban (Eliquis) 10 mg BID PO Last administered on 09/18/18at 20:50; Admin Dose 10 MG; Start 09/17/18 at 21:00; Stop 09/24/18 at 09:01 Insulin Aspart (Novolog Insulin Pen) 4 unit WITH MEALS SC Last administered on 09/18/18 17:11; Admin Dose 4 UNIT; Start 09/17/18 at 17:55 Insulin Glargine (Lantus) 12 units DAILY@2000 SC Last administered on 09/18/18 21:01; Admin Dose 12 UNITS; Start 09/17/18 at 20:00 Polyethylene Glycol (Miralax) 17 gm BID PO Last administered on 09/18/18at 20:50; Admin Dose 17 GM; Start 09/18/18 at 21:00 Pantoprazole (Protonix Iv) 40 mg DAILY@06 IV Last administered on 09/19/18 05:48; Admin Dose 40 MG; Start 09/19/18 at 06:00 JORDYN GARCIAS Sep 19, 2018 7:43 am
[2018-09-19] MEDS: AMLODIPINE 10 MG TAB PO SCH (08:20)
[2018-09-19] MEDS: APIXABAN 5 MG TABLET PO SCH ×2 (08:20→20:13)
[2018-09-19] MEDS: POLYETHYLENE GLYCOL 17 GM PACKET PO SCH ×2 (08:20→20:22)
[2018-09-19] MEDS: INSULIN ASPART [NOVOLOG] 3 ML PEN SC SCH ×7 (08:33→20:12)
--- NOTE | 2018-09-19 15:19 | PN ---
Date/Time of Note Date/Time of Note DATE: 09/19/18 TIME: 15:18 Assessment/Plan VTE Prophylaxis Risk score (from Nsg)>0 risk: 9 SCD applied (from Nsg): No SCD contraindicated: other (scds) Pharmacological prophylaxis: other (scds) Lines/Catheters IV [facility] (from [facility]): Peripheral IV Assessment/Plan Hospital Course Assessment/Plan Epigastric abdominal pain - 2/2 to pancreatitis, possibly due to gallstone pancreatitis vs pancreatic cancer - Liver, mass, biopsy: Metastatic adenocarcinoma, compatible with pancreatobiliary primary. Metastatic pancreatic cancer with liver metastasis Pulmonary embolism evidence as evidence on CT HTN - stable on current medications, continue to monitor Anemia - stable Constipation- Plan: Patient transitioning to Hospice GI will sign off at this time The patient was seen in collaboration with Dr. Pratt/Juan Subjective: Course reviewed with nursing staff Patient interviewed and examined All labs, imaging and other results reviewed Family/patient have decided to move forward with Hospice No further GI recs Constitutional: alert, oriented Psych: no complaints; No nl mood/affect, No anxiety, No confusion, No depression, No suicidal, No other Head: normocephalic, atraumatic Eyes: nl conjunctiva; No EOMI, No nl lids, No nl sclera, No PERRL, No icteric, No fundi, disc, No other ENMT: No nl external ears & nose, No nl lips & teeth, No nl nasal mucosa & septum, No mucosa pink and moist, No intubated, No tympanic membranes, No other Gastrointestinal: soft, bowel sounds, tender (moderate upper quadrant abdominal pain to palpation) Genitourinary - Male: No nl penis, No nl scrotum, No CVA tenderness, No discharge, No other Musculoskeletal: No nl extremities to inspection, No nl gait and stance, No joint tenderness, No muscle tone, No muscle weakness, No range of motion, No spine non-tender, No swelling, No other Extremities: No normal pulses, No calf tenderness, No cyanosis, No clubbing, No edema, No pitting pedal edema, No palpable cord, No tenderness, No other Result Diagram: 09/18/18 0542 09/18/18 0542 Results 24hrs Laboratory Tests Test 09/18/18 16:58 09/18/18 20:46 09/19/18 08:01 09/19/18 12:00 Bedside Glucose 166 142 155 95 Exam/Review of Systems Exam Vitals Vital Signs Date Temp Pulse Resp B/P (MAP) Pulse Ox O2 O2 Flow FiO2 Time Delivery Rate 09/19/18 97.0 115 22 118/59 96 Room Air 12:12 (78) 09/16/18 3.0 20:00 Intake and Output 09/18/18 09/18/18 09/19/18 1515:00 23:00 07:00 IntakeIntake Total 700 ml 50 ml BalanceBalance 700 ml 50 ml Results Results 24hrs Laboratory Tests Test 09/18/18 16:58 09/18/18 20:46 09/19/18 08:01 09/19/18 12:00 Bedside Glucose 166 142 155 95 Medications Medication Current Medications IV Flush (NS 3 ml) 3 ml PER PROTOCOL IV ; Start 09/15/18 at 00:30 Lorazepam (Ativan) 0.5 mg Q8H PRN PO .ANXIETY Last administered on 09/19/18at 00:01; Admin Dose 0.5 MG; Start 09/15/18 at 00:30 Ondansetron HCl (Zofran Inj) 4 mg Q6H PRN IV NAUSEA/VOMITING; Start 09/15/18 at 00:30 Acetaminophen (Tylenol Tab) 650 mg Q6H PRN PO .PAIN 1-3 OR TEMP; Start 09/15/18 at 00:30 Hydromorphone HCl (Dilaudid) 0.5 mg Q4H PRN IV .PAIN 7-10 Last administered on 09/19/18at 03:54; Admin Dose 0.5 MG; Start 09/15/18 at 00:30 Docusate Sodium (Colace) 100 mg Q12H PRN PO .CONSTIPATION; Start 09/15/18 at 00:30 Bisacodyl (Dulcolax) 5 mg DAILY PRN PO .CONSTIPATION Last administered on 09/18/18at 17:04; Admin Dose 5 MG; Start 09/15/18 at 00:30 Amlodipine Besylate (Norvasc) 10 mg DAILY PO Last administered on 09/19/18at 0 8:20; Admin Dose 10 MG; Start 09/15/18 at 09:00 Tamsulosin HCl (Flomax) 0.4 mg QPM PO Last administered on 09/18/18at 20:50; Admin Dose 0.4 MG; Start 09/15/18 at 21:00 Insulin Aspart (Novolog Insulin Pen) NOVOLOG *MILD* ALGORITHM WITH MEALS BEDTIME SC Last administered on 09/19/18 08:34; Admin Dose 1 UNIT; Start 09/15/18 at 17:55 Miscellaneous Information 1 ea NOTE XX ; Start 09/15/18 at 14:00 Glucose (Glutose) 15 gm Q15M PRN PO DECREASED GLUCOSE; Start 09/15/18 at 14:00 Glucose (Glutose) 22.5 gm Q15M PRN PO DECREASED GLUCOSE; Start 09/15/18 at 14:00 Dextrose (D50w Syringe) 25 ml Q15M PRN IV DECREASED GLUCOSE; Start 09/15/18 at 14:00 Dextrose (D50w Syringe) 50 ml Q15M PRN IV DECREASED GLUCOSE; Start 09/15/18 at 14:00 Glucagon (Glucagen) 1 mg Q15M PRN IM DECREASED GLUCOSE; Start 09/15/18 at 14:00 Glucose (Glutose) 15 gm Q15M PRN BUCCAL DECREASED GLUCOSE; Start 09/15/18 at 14:00 Apixaban (Eliquis) 5 mg BID PO ; Start 09/24/18 at 21:00 Apixaban (Eliquis) 10 mg BID PO Last administered on 09/19/18 08:20; Admin Dose 10 MG; Start 09/17/18 at 21:00; Stop 09/24/18 at 09:01 Insulin Aspart (Novolog Insulin Pen) 4 unit WITH MEALS SC Last administered on 09/19/18 12:02; Admin Dose 4 UNIT; Start 09/17/18 at 17:55 Insulin Glargine (Lantus) 12 units DAILY@2000 SC Last administered on 09/18/18 21:01; Admin Dose 12 UNITS; Start 09/17/18 at 20:00 Polyethylene Glycol (Miralax) 17 gm BID PO Last administered on 09/19/18 08:20; Admin Dose 17 GM; Start 09/18/18 at 21:00 Pantoprazole (Protonix Iv) 40 mg DAILY@06 IV Last administered on 09/19/18 05:48; Admin Dose 40 MG; Start 09/19/18 at 06:00 JEISON ARREAGA Sep 19, 2018 15:19
--- NOTE | 2018-09-19 16:23 | PN ---
Date/Time of Note Date/Time of Note DATE: 09/19/18 TIME: 16:23 Assessment/Plan VTE Prophylaxis Risk score (from Nsg)>0 risk: 9 Pharmacological prophylaxis: apixaban Lines/Catheters IV Catheter Type (from Nrsg): Peripheral IV Assessment/Plan Hospital Course 78 yo male with DMII and HTN who presented with abdominal pain and found to have pancreatic mass with multiple liver lesions consistent with likely metastatic pancreatic cancer. 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, anticipate DC home in the next 1-2 days Result Diagram: 09/18/18 0542 09/18/18 0542 Results 24hrs Laboratory Tests Test 09/18/18 16:58 09/18/18 20:46 09/19/18 08:01 09/19/18 12:00 Bedside Glucose 166 142 155 95 Subjective 24 Hr Interval Summary Constitutional: no complaints Exam/Review of Systems Exam Vitals Vital Signs Date Temp Pulse Resp B/P (MAP) Pulse Ox O2 O2 Flow FiO2 Time Delivery Rate 09/19/18 97.0 115 22 118/59 96 Room Air 12:12 (78) 09/16/18 3.0 20:00 Intake and Output 09/18/18 09/18/18 09/19/18 1515:00 23:00 07:00 IntakeIntake Total 700 ml 50 ml BalanceBalance 700 ml 50 ml Constitutional: alert, oriented Respiratory: clear to auscultation Cardiovascular: regular rate and rhythm Gastrointestinal: soft; No distended Musculoskeletal: nl extremities to inspection Results Results 24hrs Laboratory Tests Test 09/18/18 16:58 09/18/18 20:46 09/19/18 08:01 09/19/18 12:00 Bedside Glucose 166 142 155 95 Medications Medication Current Medications IV Flush (NS 3 ml) 3 ml PER PROTOCOL IV ; Start 09/15/18 at 00:30 Lorazepam (Ativan) 0.5 mg Q8H PRN PO .ANXIETY Last administered on 09/19/18 00:01; Admin Dose 0.5 MG; Start 09/15/18 at 00:30 Ondansetron HCl (Zofran Inj) 4 mg Q6H PRN IV NAUSEA/VOMITING; Start 09/15/18 at 00:30 Acetaminophen (Tylenol Tab) 650 mg Q6H PRN PO .PAIN 1-3 OR TEMP; Start 09/15/18 at 00:30 Hydromorphone HCl (Dilaudid) 0.5 mg Q4H PRN IV .PAIN 7-10 Last administered on 09/19/18at 03:54; Admin Dose 0.5 MG; Start 09/15/18 at 00:30 Docusate Sodium (Colace) 100 mg Q12H PRN PO .CONSTIPATION; Start 09/15/18 at 00:30 Bisacodyl (Dulcolax) 5 mg DAILY PRN PO .CONSTIPATION Last administered on 09/18/18 17:04; Admin Dose 5 MG; Start 09/15/18 at 00:30 Amlodipine Besylate (Norvasc) 10 mg DAILY PO Last administered on 09/19/18 08:20; Admin Dose 10 MG; Start 09/15/18 at 09:00 Tamsulosin HCl (Flomax) 0.4 mg QPM PO Last administered on 09/18/18at 20:50; Admin Dose 0.4 MG; Start 09/15/18 at 21:00 Insulin Aspart (Novolog Insulin Pen) NOVOLOG *MILD* ALGORITHM WITH MEALS BEDTIME SC Last administered on 09/19/18 08:34; Admin Dose 1 UNIT; Start 09/15/18 at 17:55 Miscellaneous Information 1 ea NOTE XX ; Start 09/15/18 at 14:00 Glucose (Glutose) 15 gm Q15M PRN PO DECREASED GLUCOSE; Start 09/15/18 at 14:00 Glucose (Glutose) 22.5 gm Q15M PRN PO DECREASED GLUCOSE; Start 09/15/18 at 14:00 Dextrose (D50w Syringe) 25 ml Q15M PRN IV DECREASED GLUCOSE; Start 09/15/18 at 14:00 Dextrose (D50w Syringe) 50 ml Q15M PRN IV DECREASED GLUCOSE; Start 09/15/18 at 14:00 Glucagon (Glucagen) 1 mg Q15M PRN IM DECREASED GLUCOSE; Start 09/15/18 at 14:00 Glucose (Glutose) 15 gm Q15M PRN BUCCAL DECREASED GLUCOSE; Start 09/15/18 at 14:00 Apixaban (Eliquis) 5 mg BID PO ; Start 09/24/18 at 21:00 Apixaban (Eliquis) 10 mg BID PO Last administered on 09/19/18at 08:20; Admin Dose 10 MG; Start 09/17/18 at 21:00; Stop 09/24/18 at 09:01 Insulin Aspart (Novolog Insulin Pen) 4 unit WITH MEALS SC Last administered on 09/19/18at 12:02; Admin Dose 4 UNIT; Start 09/17/18 at 17:55 Insulin Glargine (Lantus) 12 units DAILY@2000 SC Last administered on 09/18/18at 21:01; Admin Dose 12 UNITS; Start 09/17/18 at 20:00 Polyethylene Glycol (Miralax) 17 gm BID PO Last administered on 09/19/18at 08:20; Admin Dose 17 GM; Start 09/18/18 at 21:00 Pantoprazole (Protonix Tab) 40 mg DAILY@06 PO ; Start 09/20/18 at 06:00 MODE DAWSON Sep 19, 2018 16:23
[2018-09-19] MEDS: TAMSULOSIN (SR) 0.4 MG CAP PO SCH (20:14)
[2018-09-19] MEDS: INSULIN GLARGINE [LANTus] (100 UNITS/ML) SYG SC SCH (20:22)
[2018-09-20] VITALS (11 sets, daily range): BP systolic 116–130; BP diastolic 26–60; PULSE 103–112; RESP 18–20
[2018-09-20] MEDS: PANTOPRAZOLE (EC) 40 MG TAB PO SCH (05:12)
[2018-09-20] MEDS: AMLODIPINE 10 MG TAB PO SCH (08:05)
[2018-09-20] MEDS: POLYETHYLENE GLYCOL 17 GM PACKET PO SCH ×2 (08:05→21:26)
[2018-09-20] MEDS: APIXABAN 5 MG TABLET PO SCH ×2 (08:05→21:26)
[2018-09-20] MEDS: INSULIN ASPART [NOVOLOG] 3 ML PEN SC SCH ×7 (08:13→21:00)
--- NOTE | 2018-09-20 10:15 | CONS ---
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 They understand that prognosis is bad. They have decided on hospice they will let me know once they decide chemo would not be given in the hospital, it is an outpt regimen # PE will need indefinite anticoagulation due to underlying malignancy, on eliquis # microcytic anemia iron studies c/w anemia of chronic disease and chronic inflammation elevated ferritin Consultation Date/Type/Reason Admit Date/Time Sep 14, 2018 at 22:54 Initial Consult Date 09/15/18 Requesting Provider: LIZETTE YUAN Date/Time of Note DATE: 09/20/18 TIME: 10:15 24 HR Interval Summary Free Text/Dictation resting comfortably Exam/Review of Systems Exam Vitals Vital Signs Date Temp Pulse Resp B/P (MAP) Pulse Ox O2 O2 Flow FiO2 Time Delivery Rate 09/20/18 105 08:58 09/20/18 98.4 18 116/58 94 07:35 (77) 09/19/18 Room Air 16:49 09/16/18 3.0 20:00 Intake and Output 09/19/18 09/19/18 09/20/18 1414:59 22:59 06:59 IntakeIntake Total 430 ml 100 ml BalanceBalance 430 ml 100 ml Constitutional: alert, oriented, well developed Psych: no complaints, nl mood/affect Head: normocephalic, atraumatic Respiratory: clear to auscultation, normal air movement Cardiovascular: regular rate and rhythm, nl pulses Gastrointestinal: soft, nl liver, spleen, non-tender Results Result Diagram: 09/18/18 0542 09/18/18 0542 Results 24hrs Laboratory Tests Test 09/19/18 12:00 09/19/18 17:02 09/19/18 20:12 09/20/18 08:06 Bedside Glucose 95 209 129 170 Medications Medication Current Medications IV Flush (NS 3 ml) 3 ml PER PROTOCOL IV ; Start 09/15/18 at 00:30 Lorazepam (Ativan) 0.5 mg Q8H PRN PO .ANXIETY Last administered on 09/19/18at 00:01; Admin Dose 0.5 MG; Start 09/15/18 at 00:30 Ondansetron HCl (Zofran Inj) 4 mg Q6H PRN IV NAUSEA/VOMITING; Start 09/15/18 at 00:30 Acetaminophen (Tylenol Tab) 650 mg Q6H PRN PO .PAIN 1-3 OR TEMP; Start 09/15/18 at 00:30 Hydromorphone HCl (Dilaudid) 0.5 mg Q4H PRN IV .PAIN 7-10 Last administered on 09/19/18at 22:45; Admin Dose 0.5 MG; Start 09/15/18 at 00:30 Docusate Sodium (Colace) 100 mg Q12H PRN PO .CONSTIPATION; Start 09/15/18 at 00:30 Bisacodyl (Dulcolax) 5 mg DAILY PRN PO .CONSTIPATION Last administered on 09/18/18at 17:04; Admin Dose 5 MG; Start 09/15/18 at 00:30 Amlodipine Besylate (Norvasc) 10 mg DAILY PO Last administered on 09/20/18 08: 05; Admin Dose 10 MG; Start 09/15/18 at 09:00 Tamsulosin HCl (Flomax) 0.4 mg QPM PO Last administered on 09/19/18at 20:14; Admin Dose 0.4 MG; Start 09/15/18 at 21:00 Insulin Aspart (Novolog Insulin Pen) NOVOLOG *MILD* ALGORITHM WITH MEALS BEDTIME SC Last administered on 09/20/18at 08:13; Admin Dose 1 UNIT; Start 09/15/18 at 17:55 Miscellaneous Information 1 ea NOTE XX ; Start 09/15/18 at 14:00 Glucose (Glutose) 15 gm Q15M PRN PO DECREASED GLUCOSE; Start 09/15/18 at 14:00 Glucose (Glutose) 22.5 gm Q15M PRN PO DECREASED GLUCOSE; Start 09/15/18 at 14:00 Dextrose (D50w Syringe) 25 ml Q15M PRN IV DECREASED GLUCOSE; Start 09/15/18 at 14:00 Dextrose (D50w Syringe) 50 ml Q15M PRN IV DECREASED GLUCOSE; Start 09/15/18 at 14:00 Glucagon (Glucagen) 1 mg Q15M PRN IM DECREASED GLUCOSE; Start 09/15/18 at 14:00 Glucose (Glutose) 15 gm Q15M PRN BUCCAL DECREASED GLUCOSE; Start 09/15/18 at 14:00 Apixaban (Eliquis) 5 mg BID PO ; Start 09/24/18 at 21:00 Apixaban (Eliquis) 10 mg BID PO Last administered on 09/20/18at 08:05; Admin Dose 10 MG; Start 09/17/18 at 21:00; Stop 09/24/18 at 09:01 Insulin Aspart (Novolog Insulin Pen) 4 unit WITH MEALS SC Last administered on 09/20/18at 08:13; Admin Dose 4 UNIT; Start 09/17/18 at 17:55 Insulin Glargine (Lantus) 12 units DAILY@2000 SC Last administered on 09/19/18at 20:22; Admin Dose 12 UNITS; Start 09/17/18 at 20:00 Polyethylene Glycol (Miralax) 17 gm BID PO Last administered on 09/20/18at 08:05; Admin Dose 17 GM; Start 09/18/18 at 21:00 Pantoprazole (Protonix Tab) 40 mg DAILY@06 PO ; Start 09/20/18 at 06:00 MOSES STANLEY Sep 20, 2018 10:15
--- NOTE | 2018-09-20 11:57 | PN ---
Date/Time of Note Date/Time of Note DATE: 09/20/18 TIME: 11:56 Assessment/Plan VTE Prophylaxis Risk score (from Nsg)>0 risk: 9 Pharmacological prophylaxis: apixaban Lines/Catheters IV Catheter Type (from Nrsg): Peripheral IV Assessment/Plan Hospital Course 78 yo male with DMII and HTN who presented with abdominal pain and found to have pancreatic mass with multiple liver lesions consistent with likely metastatic pancreatic cancer. 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, anticipate DC home in the next 1-2 days Result Diagram: 09/18/18 0542 09/18/18 0542 Results 24hrs Laboratory Tests Test 09/19/18 12:00 09/19/18 17:02 09/19/18 20:12 09/20/18 08:06 Bedside Glucose 95 209 129 170 Test 09/20/18 11:45 Bedside Glucose 121 Subjective 24 Hr Interval Summary Constitutional: no complaints Exam/Review of Systems Exam Vitals Vital Signs Date Temp Pulse Resp B/P (MAP) Pulse Ox O2 O2 Flow FiO2 Time Delivery Rate 09/20/18 98.2 112 18 122/60 94 11:52 (80) 09/19/18 Room Air 16:49 09/16/18 3.0 20:00 Intake and Output 09/19/18 09/19/18 09/20/18 1515:00 23:00 07:00 IntakeIntake Total 430 ml 100 ml BalanceBalance 430 ml 100 ml Constitutional: alert Respiratory: clear to auscultation Cardiovascular: regular rate and rhythm Gastrointestinal: soft; No distended Musculoskeletal: nl extremities to inspection Results Results 24hrs Laboratory Tests Test 09/19/18 12:00 09/19/18 17:02 09/19/18 20:12 09/20/18 08:06 Bedside Glucose 95 209 129 170 Test 09/20/18 11:45 Bedside Glucose 121 Medications Medication Current Medications IV Flush (NS 3 ml) 3 ml PER PROTOCOL IV ; Start 09/15/18 at 00:30 Lorazepam (Ativan) 0.5 mg Q8H PRN PO .ANXIETY Last administered on 09/19/18at 00:01; Admin Dose 0.5 MG; Start 09/15/18 at 00:30 Ondansetron HCl (Zofran Inj) 4 mg Q6H PRN IV NAUSEA/VOMITING; Start 09/15/18 at 00:30 Acetaminophen (Tylenol Tab) 650 mg Q6H PRN PO .PAIN 1-3 OR TEMP; Start 09/15/18 at 00:30 Hydromorphone HCl (Dilaudid) 0.5 mg Q4H PRN IV .PAIN 7-10 Last administered on 09/19/18at 22:45; Admin Dose 0.5 MG; Start 09/15/18 at 00:30 Docusate Sodium (Colace) 100 mg Q12H PRN PO .CONSTIPATION; Start 09/15/18 at 00:30 Bisacodyl (Dulcolax) 5 mg DAILY PRN PO .CONSTIPATION Last administered on 09/18/18at 17:04; Admin Dose 5 MG; Start 09/15/18 at 00:30 Amlodipine Besylate (Norvasc) 10 mg DAILY PO Last administered on 09/20/18at 08:05; Admin Dose 10 MG; Start 09/15/18 at 09:00 Tamsulosin HCl (Flomax) 0.4 mg QPM PO Last administered on 09/19/18at 20:14; Admin Dose 0.4 MG; Start 09/15/18 at 21:00 Insulin Aspart (Novolog Insulin Pen) NOVOLOG *MILD* ALGORITHM WITH MEALS BEDTIME SC Last administered on 09/20/18at 08:13; Admin Dose 1 UNIT; Start 09/15/18 at 17:55 Miscellaneous Information 1 ea NOTE XX ; Start 09/15/18 at 14:00 Glucose (Glutose) 15 gm Q15M PRN PO DECREASED GLUCOSE; Start 09/15/18 at 14:00 Glucose (Glutose) 22.5 gm Q15M PRN PO DECREASED GLUCOSE; Start 09/15/18 at 14:00 Dextrose (D50w Syringe) 25 ml Q15M PRN IV DECREASED GLUCOSE; Start 09/15/18 at 14:00 Dextrose (D50w Syringe) 50 ml Q15M PRN IV DECREASED GLUCOSE; Start 09/15/18 at 14:00 Glucagon (Glucagen) 1 mg Q15M PRN IM DECREASED GLUCOSE; Start 09/15/18 at 14:00 Glucose (Glutose) 15 gm Q15M PRN BUCCAL DECREASED GLUCOSE; Start 09/15/18 at 14:00 Apixaban (Eliquis) 5 mg BID PO ; Start 09/24/18 at 21:00 Apixaban (Eliquis) 10 mg BID PO Last administered on 09/20/18at 08:05; Admin Dose 10 MG; Start 09/17/18 at 21:00; Stop 09/24/18 at 09:01 Insulin Aspart (Novolog Insulin Pen) 4 unit WITH MEALS SC Last administered on 09/20/18at 08:13; Admin Dose 4 UNIT; Start 09/17/18 at 17:55 Insulin Glargine (Lantus) 12 units DAILY@2000 SC Last administered on 09/19/18at 20:22; Admin Dose 12 UNITS; Start 09/17/18 at 20:00 Polyethylene Glycol (Miralax) 17 gm BID PO Last administered on 09/20/18at 08:05; Admin Dose 17 GM; Start 09/18/18 at 21:00 Pantoprazole (Protonix Tab) 40 mg DAILY@06 PO ; Start 09/20/18 at 06:00 MODE DAWSON Sep 20, 2018 11:57
[2018-09-20] MEDS: HYDROmorphONE 0.5 MG/0.5 ML SYG IV PRN ×3 (13:50→23:43)
[2018-09-20] MEDS: TAMSULOSIN (SR) 0.4 MG CAP PO SCH (21:26)
[2018-09-20] MEDS: INSULIN GLARGINE [LANTus] (100 UNITS/ML) SYG SC SCH (21:37)
[2018-09-21] VITALS (12 sets, daily range): BP systolic 123–136; BP diastolic 56–72; PULSE 86–117; RESP 16–20
[2018-09-21] MEDS: PANTOPRAZOLE (EC) 40 MG TAB PO SCH (06:03)
[2018-09-21] MEDS: HYDROmorphONE 0.5 MG/0.5 ML SYG IV PRN ×5 (06:03→22:01)
[2018-09-21] MEDS: INSULIN ASPART [NOVOLOG] 3 ML PEN SC SCH ×7 (08:32→20:21)
[2018-09-21] MEDS: AMLODIPINE 10 MG TAB PO SCH (09:53)
[2018-09-21] MEDS: APIXABAN 5 MG TABLET PO SCH ×2 (09:53→20:20)
[2018-09-21] MEDS: POLYETHYLENE GLYCOL 17 GM PACKET PO SCH ×2 (09:53→20:20)
--- NOTE | 2018-09-21 11:27 | PN ---
Date/Time of Note Date/Time of Note DATE: 09/21/18 TIME: 11:27 Assessment/Plan VTE Prophylaxis Risk score (from Nsg)>0 risk: 9 Pharmacological prophylaxis: apixaban Lines/Catheters IV Catheter Type (from Nrsg): Peripheral IV Assessment/Plan Hospital Course 78 yo male with DMII and HTN who presented with abdominal pain and found to have pancreatic mass with multiple liver lesions consistent with likely metastatic pancreatic cancer. 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 -Oncology consultation appreciated -Family is not interested in chemotherapy, social services assistant arranging for hospice at home - Pain control PE: -Status post heparin drip, transitioned to Eliquis Epistaxis secondary to heparin-resolved -Status post heparin, transition to Eliquis DMII: - Basal/bolus Prophylaxis: Eliquis DC planning: Family would like to keep patient in hospital until Sunday, plan is for DC to home with hospice on Sunday Result Diagram: 09/18/1854109/18/18541 Results 24hrs Laboratory Tests Test 09/20/18 11:45 09/20/18 17:14 09/20/18 21:30 09/21/18 08:26 Bedside Glucose 121 120 159 197 Subjective 24 Hr Interval Summary Gastrointestinal: pain Exam/Review of Systems Exam Vitals Vital Signs Date Temp Pulse Resp B/P (MAP) Pulse Ox O2 O2 Flow FiO2 Time Delivery Rate 09/21/18 112 08:00 09/21/18 97.9 16 128/56 97 Room Air 07:57 (80) Intake and Output 09/20/18 09/20/18 09/21/18 1515:00 23:00 07:00 IntakeIntake Total 600 ml 550 ml BalanceBalance 600 ml 550 ml Constitutional: alert Respiratory: clear to auscultation Cardiovascular: regular rate and rhythm Gastrointestinal: soft; No distended Musculoskeletal: nl extremities to inspection Results Results 24hrs Laboratory Tests Test 09/20/18 11:45 09/20/18 17:14 09/20/18 21:30 09/21/18 08:26 Bedside Glucose 121 120 159 197 Medications Medication Current Medications IV Flush (NS 3 ml) 3 ml PER PROTOCOL IV ; Start 09/15/18 at 00:30 Lorazepam (Ativan) 0.5 mg Q8H PRN PO .ANXIETY Last administered on 09/19/18 00:01; Admin Dose 0.5 MG; Start 09/15/18 at 00:30 Ondansetron HCl (Zofran Inj) 4 mg Q6H PRN IV NAUSEA/VOMITING; Start 09/15/18 at 00:30 Acetaminophen (Tylenol Tab) 650 mg Q6H PRN PO .PAIN 1-3 OR TEMP; Start 09/15/18 at 00:30 Hydromorphone HCl (Dilaudid) 0.5 mg Q4H PRN IV .PAIN 7-10 Last administered on 09/21/18 09:53; Admin Dose 0.5 MG; Start 09/15/18 at 00:30 Docusate Sodium (Colace) 100 mg Q12H PRN PO .CONSTIPATION; Start 09/15/18 at 00 :30 Bisacodyl (Dulcolax) 5 mg DAILY PRN PO .CONSTIPATION Last administered on 09/18/18at 17:04; Admin Dose 5 MG; Start 09/15/18 at 00:30 Amlodipine Besylate (Norvasc) 10 mg DAILY PO Last administered on 09/21/18 09:53; Admin Dose 10 MG; Start 09/15/18 at 09:00 Tamsulosin HCl (Flomax) 0.4 mg QPM PO Last administered on 09/20/18 21:26; Admin Dose 0.4 MG; Start 09/15/18 at 21:00 Insulin Aspart (Novolog Insulin Pen) NOVOLOG *MILD* ALGORITHM WITH MEALS BEDTIME SC Last administered on 09/21/18 08:33; Admin Dose 2 UNIT; Start 09/15/18 at 17:55 Miscellaneous Information 1 ea NOTE XX ; Start 09/15/18 at 14:00 Glucose (Glutose) 15 gm Q15M PRN PO DECREASED GLUCOSE; Start 09/15/18 at 14:00 Glucose (Glutose) 22.5 gm Q15M PRN PO DECREASED GLUCOSE; Start 09/15/18 at 14:00 Dextrose (D50w Syringe) 25 ml Q15M PRN IV DECREASED GLUCOSE; Start 09/15/18 at 14:00 Dextrose (D50w Syringe) 50 ml Q15M PRN IV DECREASED GLUCOSE; Start 09/15/18 at 14:00 Glucagon (Glucagen) 1 mg Q15M PRN IM DECREASED GLUCOSE; Start 09/15/18 at 14:00 Glucose (Glutose) 15 gm Q15M PRN BUCCAL DECREASED GLUCOSE; Start 09/15/18 at 14:00 Apixaban (Eliquis) 5 mg BID PO ; Start 09/24/18 at 21:00 Apixaban (Eliquis) 10 mg BID PO Last administered on 09/21/18 09:53; Admin Dose 10 MG; Start 09/17/18 at 21:00; Stop 09/24/18 at 09:01 Insulin Aspart (Novolog Insulin Pen) 4 unit WITH MEALS SC Last administered on 09/21/18 08:32; Admin Dose 4 UNIT; Start 09/17/18 at 17:55 Insulin Glargine (Lantus) 12 units DAILY@2000 SC Last administered on 09/20/18at 21:37; Admin Dose 12 UNITS; Start 09/17/18 at 20:00 Polyethylene Glycol (Miralax) 17 gm BID PO Last administered on 09/21/18at 09:53; Admin Dose 17 GM; Start 09/18/18 at 21:00 Pantoprazole (Protonix Tab) 40 mg DAILY@06 PO Last administered on 09/21/18 06:03; Admin Dose 40 MG; Start 09/20/18 at 06:00 MODE DAWSON Sep 21, 2018 11:27
[2018-09-21] MEDS: TAMSULOSIN (SR) 0.4 MG CAP PO SCH (20:20)
[2018-09-21] MEDS: INSULIN GLARGINE [LANTus] (100 UNITS/ML) SYG SC SCH (20:29)
[2018-09-22] VITALS (11 sets, daily range): BP systolic 121–138; BP diastolic 56–71; PULSE 101–118; RESP 18–20
[2018-09-22] MEDS: HYDROmorphONE 0.5 MG/0.5 ML SYG IV PRN ×6 (02:25→23:45)
[2018-09-22] MEDS: PANTOPRAZOLE (EC) 40 MG TAB PO SCH (06:09)
[2018-09-22] MEDS: INSULIN ASPART [NOVOLOG] 3 ML PEN SC SCH ×7 (08:31→20:39)
[2018-09-22] MEDS: AMLODIPINE 10 MG TAB PO SCH (09:59)
[2018-09-22] MEDS: APIXABAN 5 MG TABLET PO SCH ×2 (09:59→20:28)
[2018-09-22] MEDS: POLYETHYLENE GLYCOL 17 GM PACKET PO SCH ×2 (09:59→20:28)
--- NOTE | 2018-09-22 17:03 | PN ---
Date/Time of Note Date/Time of Note DATE: 09/22/18 TIME: 17:03 Assessment/Plan VTE Prophylaxis Risk score (from Nsg)>0 risk: 12 Pharmacological prophylaxis: apixaban Lines/Catheters IV Catheter Type (from Nrsg): Peripheral IV Assessment/Plan Hospital Course 78 yo male with DMII and HTN who presented with abdominal pain and found to have pancreatic mass with multiple liver lesions consistent with likely metastatic pancreatic cancer. 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 -Oncology consultation appreciated -Family is not interested in chemotherapy, social problems specialist arranging for hospice at home - Pain control PE: -Status post heparin drip, transitioned to Eliquis Epistaxis secondary to heparin-resolved -Status post heparin, transition to Eliquis DMII: - Basal/bolus Prophylaxis: Eliquis DC planning: Family would like to keep patient in hospital until Sunday, plan is for DC to home with hospice on Sunday Result Diagram: 09/18/1854109/18/1842 Results 24hrs Laboratory Tests Test 09/21/18 17:58 09/21/18 20:18 09/22/18 08:21 09/22/18 12:32 Bedside Glucose 273 H 149 213 128 Subjective 24 Hr Interval Summary Constitutional: no complaints Exam/Review of Systems Exam Vitals Vital Signs Date Temp Pulse Resp B/P (MAP) Pulse Ox O2 O2 Flow FiO2 Time Delivery Rate 09/22/18 111 16:00 09/22/18 98.1 20 135/66 91 15:21 (89) 09/22/18 Nasal 2.0 09:30 Cannula Intake and Output 09/21/18 09/21/18 09/22/18 1414:59 22:59 06:59 IntakeIntake Total 300 ml BalanceBalance 300 ml Constitutional: alert, oriented Respiratory: clear to auscultation Cardiovascular: regular rate and rhythm Gastrointestinal: soft; No distended Musculoskeletal: nl extremities to inspection Results Results 24hrs Laboratory Tests Test 09/21/18 17:58 09/21/18 20:18 09/22/18 08:21 09/22/18 12:32 Bedside Glucose 273 H 149 213 128 Medications Medication Current Medications IV Flush (NS 3 ml) 3 ml PER PROTOCOL IV ; Start 09/15/18 at 00:30 Lorazepam (Ativan) 0.5 mg Q8H PRN PO .ANXIETY Last administered on 09/19/18at 00:01; Admin Dose 0.5 MG; Start 09/15/18 at 00:30 Ondansetron HCl (Zofran Inj) 4 mg Q6H PRN IV NAUSEA/VOMITING; Start 09/15/18 at 00:30 Acetaminophen (Tylenol Tab) 650 mg Q6H PRN PO .PAIN 1-3 OR TEMP; Start 09/15/18 at 00:30 Hydromorphone HCl (Dilaudid) 0.5 mg Q4H PRN IV .PAIN 7-10 Last administered on 09/22/18at 15:10; Admin Dose 0.5 MG; Start 09/15/18 at 00:30 Docusate Sodium (Colace) 100 mg Q12H PRN PO .CONSTIPATION; Start 09/15/18 at 00:30 Bisacodyl (Dulcolax) 5 mg DAILY PRN PO .CONSTIPATION Last administered on 09/18/18at 17:04; Admin Dose 5 MG; Start 09/15/18 at 00:30 Amlodipine Besylate (Norvasc) 10 mg DAILY PO Last administered on 09/22/18at 09:59; Admin Dose 10 MG; Start 09/15/18 at 09:00 Tamsulosin HCl (Flomax) 0.4 mg QPM PO Last administered on 09/21/18at 20:20; Admin Dose 0.4 MG; Start 09/15/18 at 21:00 Insulin Aspart (Novolog Insulin Pen) NOVOLOG *MILD* ALGORITHM WITH MEALS BED TIME SC Last administered on 09/22/18at 08:31; Admin Dose 2 UNIT; Start 09/15/18 at 17:55 Miscellaneous Information 1 ea NOTE XX ; Start 09/15/18 at 14:00 Glucose (Glutose) 15 gm Q15M PRN PO DECREASED GLUCOSE; Start 09/15/18 at 14:00 Glucose (Glutose) 22.5 gm Q15M PRN PO DECREASED GLUCOSE; Start 09/15/18 at 14:00 Dextrose (D50w Syringe) 25 ml Q15M PRN IV DECREASED GLUCOSE; Start 09/15/18 at 14:00 Dextrose (D50w Syringe) 50 ml Q15M PRN IV DECREASED GLUCOSE; Start 09/15/18 at 14:00 Glucagon (Glucagen) 1 mg Q15M PRN IM DECREASED GLUCOSE; Start 09/15/18 at 14:00 Glucose (Glutose) 15 gm Q15M PRN BUCCAL DECREASED GLUCOSE; Start 09/15/18 at 14:00 Apixaban (Eliquis) 5 mg BID PO ; Start 09/24/18 at 21:00 Apixaban (Eliquis) 10 mg BID PO Last administered on 09/22/18at 09:59; Admin Dose 10 MG; Start 09/17/18 at 21:00; Stop 09/24/18 at 09:01 Insulin Aspart (Novolog Insulin Pen) 4 unit WITH MEALS SC Last administered on 09/22/18 13:21; Admin Dose 4 UNIT; Start 09/17/18 at 17:55 Insulin Glargine (Lantus) 12 units DAILY@2000 SC Last administered on 09/21/18at 20:29; Admin Dose 12 UNITS; Start 09/17/18 at 20:00 Polyethylene Glycol (Miralax) 17 gm BID PO Last administered on 09/22/18at 09: 59; Admin Dose 17 GM; Start 09/18/18 at 21:00 Pantoprazole (Protonix Tab) 40 mg DAILY@06 PO Last administered on 09/22/18 06:09; Admin Dose 40 MG; Start 09/20/18 at 06:00 MODE DAWSON Sep 22, 2018 17:03
[2018-09-22] MEDS: BISACODYL (EC) 5 MG TAB PO PRN (18:05)
[2018-09-22] MEDS ORDERED: NA PHOSPHATE/BIPHOS 133 ML ENEMA PR PRN (20:00)
[2018-09-22] MEDS: TAMSULOSIN (SR) 0.4 MG CAP PO SCH (20:28)
[2018-09-22] MEDS: INSULIN GLARGINE [LANTus] (100 UNITS/ML) SYG SC SCH (20:38)
[2018-09-23] VITALS (9 sets, daily range): BP systolic 119–132; BP diastolic 58–69; PULSE 101–116; RESP 20–22
[2018-09-23] MEDS: HYDROmorphONE 0.5 MG/0.5 ML SYG IV PRN ×3 (04:23→14:54)
[2018-09-23] MEDS: PANTOPRAZOLE (EC) 40 MG TAB PO SCH (05:46)
[2018-09-23] MEDS: AMLODIPINE 10 MG TAB PO SCH (08:31)
[2018-09-23] MEDS: APIXABAN 5 MG TABLET PO SCH (08:31)
[2018-09-23] MEDS: INSULIN ASPART [NOVOLOG] 3 ML PEN SC SCH ×4 (08:55→13:36)
[2018-09-23] MEDS: POLYETHYLENE GLYCOL 17 GM PACKET PO SCH (09:07)
--- NOTE | 2018-09-23 12:29 | DS ---
Date/Time of Note Date/Time of Note DATE: 09/23/18 TIME: 12:26 Discharge Summary Admission/Discharge Info Admit Date/Time Sep 14, 2018 at 22:54 Discharge Date/Time September 23, 2018 Discharge Diagnosis 78 yo male with DMII and HTN who presented with abdominal pain and found to have pancreatic mass with multiple liver lesions consistent with likely metastatic pancreatic cancer. 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 -Oncology consultation appreciated -Family is not interested in chemotherapy, patient be discharged home with hospice - Pain control -CODE STATUS discussed and family is in agreement with DNR status PE: -Status post heparin drip, transitioned to Eliquis -No indication for further anticoagulation as patient is terminal and risks outweigh benefits at this time Epistaxis secondary to heparin-resolved -Status post heparin, transition to Eliquis DMII: -No indication to continue further home medications Patient Condition: Fair Hospital Course Patient is a 78 yo male with DMII and HTN who presented with abdominal pain and found to have pancreatic mass with multiple liver lesions consistent with metastatic pancreatic cancer. Patient did have a CT-guided liver biopsy and pathology did confirm pancreatic adenocarcinoma. Patient was also found to have PE and was initially on a heparin drip and transition to Eliquis. Oncology was consulted, family was not interested in chemotherapy and were agreeable to hospice at home. fat purification worker did assist with hospice arrangements, patient was stable for DC to home with hospice, on day of discharge patient's vitals, labs and physical exam are stable. Home Meds Active Scripts Polyethylene Glycol* (Miralax*) 17 Gm Powd.pack, 17 GM PO DAILY, #7 Prov:DAVID ROLLE MD 12/12/17 Bisacodyl* (Dulcolax*) 5 Mg Tablet.dr, 10 MG PO DAILY PRN for CONSTIPATION, #10 TAB Prov:DAVID ROLLE MD 12/12/17 Tamsulosin Hcl* (Flomax*) 0.4 Mg Cap.er.24h, 0.4 MG PO QPM, #15 CAP Prov:DAVID ROLLE MD 12/12/17 Zolpidem Tartrate* (Ambien*) 5 Mg Tablet, 5 MG PO HS PRN for INSOMNIA, #15 TAB Take this medication in bed. Do not stand up or get up until you have slept. Can cause falls and diziness. Prov:MARGARETTE HIGGINS DO 07/26/17 Reported Medications Famotidine* (Famotidine*) 40 Mg Tablet, 40 MG PO DAILY, #30 TAB 07/25/17 Metoclopramide Hcl* (Metoclopramide Hcl*) 5 Mg Tablet, 5 MG PO WITH MEALS PRN for NAUSEA AND OR VOMITING, TAB 07/25/17 Discontinued Reported Medications Metformin Hcl* (Metformin Hcl*) 500 Mg Tablet, 500 MG PO WITH BREAKFAST DINNE, #60 TAB 07/25/17 Glipizide* (Glipizide*) 10 Mg Tablet, 10 MG PO AC BREAKFAST, TAB 07/25/17 Losartan Potassium* (Losartan Potassium*) 50 Mg Tablet, 50 MG PO DAILY, TAB 07/25/17 Discontinued Scripts Amlodipine Besylate* (Amlodipine Besylate*) 10 Mg Tablet, 10 MG PO DAILY, #30 TAB Prov:MARGARETTE HIGGINS DO 07/26/17 Follow-up Plan Follow-up with hospice agency Primary Care Provider Not On Staff Doctor Time spent on discharge: > 30 minutes MODE DAWSON Sep 23, 2018 12:29
[2018-09-23] MEDS: LORAZEPAM 0.5 MG TAB PO PRN (15:19)
[2018-09-24] MEDS ORDERED: APIXABAN 5 MG TABLET PO SCH (21:00)
== END 2018-09-23 16:30 | disposition hospice, home (50) | DRG 435 ==
LOC: E/R 17:07 → TEL 22:54
PROVIDERS: ADMIT Family Medicine; ATTEND Internal Medicine
PROC: 0FD13ZX Extraction of Right Lobe Liver, Percutaneous Approach, Diagnostic (ICD-10-PCS; principal; 2018-09-16)
DX: C25.9 Malignant neoplasm of pancreas, unspecified (principal); I26.99 Other pulmonary embolism without acute cor pulmonale; C78.7 Secondary malignant neoplasm of liver and intrahepatic bile duct; N17.9 Acute kidney failure, unspecified; D68.32 Hemorrhagic disorder due to extrinsic circulating anticoagulants; D64.9 Anemia, unspecified; I10 Essential (primary) hypertension; E11.9 Type 2 diabetes mellitus without complications; E78.5 Hyperlipidemia, unspecified; R04.0 Epistaxis; T45.515A Adverse effect of anticoagulants, initial encounter; K59.00 Constipation, unspecified
CPT/HCPCS: 71045; 71275; 74177; 74181; 76705; 77012; 80048; 80053; 80061; 81001; 82103; 82105; 82150; 82378; 82728; 82962; 83036; 83540; 83690; 83735; 84443; 84478; 84484; 85025; 85610; 85730; 86038; 86255; 86301; 86704; 86709; 86803; 87086; 87340; 88307; 88313; 88341; 88342; 93005; 96374; 96375; 97162; C9113; J1170; J1644; J1815; J2250; J2270; J2405; J3010; J7030; Q9967